=== PATIENT | female | born 1980 | race Caucasian/White ===

== ENCOUNTER 2018-06-17 19:09 | Emergency (ER) | payer OTHER, SELFPAY ==
[2018-06-17] MEDS ORDERED: TETANUS & DIPHTHERIA TOX,ADULT 0.5 ML VIAL ONE (19:44)
[2018-06-17] MEDS ORDERED: LIDOCAINE 1% MPF 5 ML VIAL ONE (19:44)
--- NOTE | 2018-06-17 20:35 | EDPHYS ---
Physician Documentation [facility] Name: Boone Sommer Age: 38 yrs Sex: Female : 1980 Arrival Date: 06/17/2018 Time: 19:10 Bed 5 Private MD: Braxton Cuba ED Physician Shaka Luis HPI: 06/17 20:30 This 38 yrs old Female presents to ER via Ambulatory with complaints of pm1 Laceration to wrist. 20:30 The patient or guardian reports a laceration, clean. The complaints affect the left pm1 wrist diffusely. Context: The problem was sustained at work, resulted from accidentally cutting with box stacker. Onset: The symptoms/episode began/occurred just prior to arrival. Modifying factors: The symptoms are alleviated by pressure to area, the symptoms are aggravated by nothing. Associated signs and symptoms: Pertinent negatives: cyanosis distally, decreased sensation distally, numbness distally, tingling distally. The patient has not experienced similar symptoms in the past. The patient has not recently seen a physician. 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 - Social history:: Smoking status: Patient uses tobacco products, smokes one pack cigarettes per day. Patient uses alcohol, occasionally. - Ebola Screening: : Patient negative for fever greater than or equal to 101.5 degrees Fahrenheit, and additional compatible Ebola Virus Disease symptoms Patient denies exposure to infectious person Patient denies travel to an Ebola-affected area in the 21 days before illness onset No symptoms or risks identified at this time. ROS: 20:30 Constitutional: Negative for fever, chills, and weight loss, Eyes: Negative for injury, pm1 pain, redness, and discharge, ENT: Negative for injury, pain, and discharge, Neck: Negative for injury, pain, and swelling, Cardiovascular: Negative for chest pain, palpitations, and edema, Respiratory: Negative for shortness of breath, cough, wheezing, and pleuritic chest pain, Abdomen/GI: Negative for abdominal pain, nausea, vomiting, diarrhea, and constipation, Back: Negative for injury and pain, MS/Extremity: Negative for injury and deformity. 20:30 Neuro: Negative for headache, weakness, numbness, tingling, and seizure. 20:30 Skin: Positive for laceration(s), of the left wrist. Exam: 06/18 03:24 Skin: injury, laceration(s), the wound is approximately 2 cm(s), with a depth of 1 pm1 cm(s), of the left wrist. Constitutional: This is a well developed, well nourished patient who is awake, alert, and in no acute distress. Head/Face: Normocephalic, atraumatic. Eyes: Pupils equal round and reactive to light, extra-ocular motions intact. Lids and lashes normal. Conjunctiva and sclera are non-icteric and not injected. Cornea within normal limits. Periorbital areas with no swelling, redness, or edema. ENT: Nares patent. No nasal discharge, no septal abnormalities noted. Tympanic membranes are normal and external auditory canals are clear. Oropharynx with no redness, swelling, or masses, exudates, or evidence of obstruction, uvula midline. Mucous membranes moist. Neck: Trachea midline, no thyromegaly or masses palpated, and no cervical lymphadenopathy. Supple, full range of motion without nuchal rigidity, or vertebral point tenderness. No Meningismus. Chest/axilla: Normal chest wall appearance and motion. Nontender with no deformity. No lesions are appreciated. Cardiovascular: Regular rate and rhythm with a normal S1 and S2. No gallops, murmurs, or rubs. Normal PMI, no JVD. No pulse deficits. Respiratory: Lungs have equal breath sounds bilaterally, clear to auscultation and percussion. No rales, rhonchi or wheezes noted. No increased work of breathing, no retractions or nasal flaring. Abdomen/GI: Soft, non-tender, with normal bowel sounds. No distension or tympany. No guarding or rebound. No evidence of tenderness throughout. Back: No spinal tenderness. No costovertebral tenderness. Full range of motion. Musculoskeletal/extremity: Extremities: grossly normal except: noted in the left wrist: laceration, ROM: intact in all extremities. Vital Signs: 06/17 19:34 BP 190 / 119; Pulse 96; Resp 17; Temp 98.8; Pulse Ox 99% ; Weight 72.57 kg (R); bp 20:05 BP 171 / 127; Pulse 85; Resp 18; Pulse Ox 99% on R/A; mt Laceration: 20:32 Wound Repair of 2cm ( 0.8in ) subcutaneous laceration to left wrist. Irregularly pm1 shaped.. Distal neuro/vascular/tendon intact. Anesthesia: Local anesthetic administered with 2 mls of 1% lidocaine. Wound prep: Extensive cleansing with hibiclenz by me, Wound irrigation with saline by me, Wound explored extensively, Copious irrigation. Skin closed with 5 4-0 Prolene using simple sutures and sterile technique. Dressed with Neosporin, 4x4's. Patient tolerated well. MDM: 19:28 Patient medically screened. pm1 20:32 Data reviewed: vital signs. Data interpreted: Pulse oximetry: on room air is 99 %. pm1 Interpretation: normal. Counseling: I had a detailed discussion with the patient and/or guardian regarding: the historical points, exam findings, and any diagnostic results supporting the discharge/admit diagnosis, the need for outpatient follow up, to return to the emergency department if symptoms worsen or persist or if there are any questions or concerns that arise at home. 06/17 19:30 Order name: Prolene, Sutures; Complete Time: 19:44 pm1 06/17 19:30 Order name: Dressing - Wound; Complete Time: 19:44 pm1 06/17 19:30 Order name: Gloves, Sterile; Complete Time: 19:44 pm1 06/17 19:30 Order name: Setup Suture Tray; Complete Time: 19:44 pm1 Administered Medications: 19:43 Drug: Lidocaine (1 %) 5 ml {Note: AT B/S FOR PROVIDER.} Volume: 5 ml; Route: bp Infiltration; 19:43 Drug: Tetanus-Diphtheria Toxoid Adult 0.5 ml {Zipper Joiner: [employer]. Exp: 07/16/2020. Lot #: [id number]. } Route: IM; Site: right deltoid; 19:44 Follow up: Response: No adverse reaction bp Disposition: 06/18 06:49 Co-signature as Attending Physician, Shaka Luis MD I agree with the assessment and keeley plan of care. Disposition: 06/17/18 20:35 Discharged to Home. Impression: Laceration without foreign body of left wrist. - Condition is Stable. - Discharge Instructions: Laceration Care, Adult. - Work release form, Medication Reconciliation Form, Thank You Letter, Antibiotic Education, Prescription Opioid Use form. - Follow up: Emergency Department; When: As needed; Reason: Worsening of condition. Follow up: Private Physician; When: 10 - 14 days; Reason: Recheck today's complaints, Continuance of care, Staple/Suture removal, Re-evaluation by your physician. - Problem is new. - Symptoms have improved. Signatures: Shaka Luis MD MD cha Marinas, Patrick, WAREHOUSE SHIFT SUPERVISOR WAREHOUSE SHIFT SUPERVISOR pm1 Braxton Bishop, RN RN bp Corrections: (The following items were deleted from the chart) 06/17 20:47 20:35 06/17/2018 20:35 Discharged to Home. Impression: Laceration without foreign body bp of left wrist. Condition is Stable. Forms are Medication Reconciliation Form, Thank You Letter, Antibiotic Education, Prescription Opioid Use. Follow up: Emergency Department; When: As needed; Reason: Worsening of condition. Follow up: Private Physician; When: 10 - 14 days; Reason: Recheck today's complaints, Continuance of care, Staple/Suture removal, Re-evaluation by your physician. Problem is new. Symptoms have improved. pm1
--- NOTE | 2018-06-17 20:35 | ER ---
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 bp Transition of care: patient was not received from another setting of care. Onset of symptoms was June 17, 2018 at 19:00. Risk Assessment: Do you want to hurt yourself or someone else? Patient reports no desire to harm self or others. Initial Sepsis Screen: Does the patient meet any 2 criteria? No. Patient's initial sepsis screen is negative. Does the patient have a suspected source of infection? No. Patient's initial sepsis screen is negative. Care prior to arrival: None. 19:30 Method Of Arrival: Ambulatory bp 19:30 Acuity: [place] 3 bp Triage Assessment: 19:34 General: Appears in no apparent distress. comfortable, Behavior is calm, cooperative, bp appropriate for age. Pain: Denies pain. 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 - Social history:: Smoking status: Patient uses tobacco products, smokes one pack cigarettes per day. Patient uses alcohol, occasionally. - Ebola Screening: : Patient negative for fever greater than or equal to 101.5 degrees Fahrenheit, and additional compatible Ebola Virus Disease symptoms Patient denies exposure to infectious person Patient denies travel to an Ebola-affected area in the 21 days before illness onset No symptoms or risks identified at this time. Screenin:36 Abuse screen: Denies threats or abuse. Denies injuries from another. Nutritional bp screening: No deficits noted. Tuberculosis screening: No symptoms or risk factors identified. Fall Risk None identified. Assessment: 19:35 General: 38YO HF P/W 1.5CM LAC TO MEDIAL LEFT WRIST. NO ACTIVE BLEEDING, FULL ROM NOTED.bp 20:45 Reassessment: PT D/C HOME AMBULATORY WITH S/O, DX WITH HAND LACERATION, GIVEN bp INSTRUCTIONS ON WOUND CARE AND F/U. Vital Signs: 19:34 BP 190 / 119; Pulse 96; Resp 17; Temp 98.8; Pulse Ox 99% ; Weight 72.57 kg (R); bp 20:05 BP 171 / 127; Pulse 85; Resp 18; Pulse Ox 99% on R/A; mt ED Course: 19:10 Patient arrived in ED. es 19:13 Braxton Cuba MD is Private Physician. es 19:28 Braxton Bishop, RN is Primary Nurse. bp 19:28 Eh Rivera [facility]. pm1 19:28 Shaka Luis MD is Attending Physician. pm1 19:31 Triage completed. bp 19:35 Arm band placed on. bp 19:36 Patient has correct armband on for positive identification. Bed in low position. Call bp light in reach. Side rails up X2. Adult w/ patient. 20:00 Assist provider with laceration repair on left hand that was 2.5 cm. or less using bp sutures. Set up tray. Performed by Eh Rivera NP Dressed with Neosporin, Patient tolerated well. 20:47 Patient did not have IV access during this emergency room visit. bp Administered Medications: 19:43 Drug: Lidocaine (1 %) 5 ml {Note: AT B/S FOR PROVIDER.} Volume: 5 ml; Route: bp Infiltration; 19:43 Drug: Tetanus-Diphtheria Toxoid Adult 0.5 ml {Processing Tech: [employer]. Exp: bp 07/16/2020. Lot #: [id number]. } Route: IM; Site: right deltoid; 19:44 Follow up: Response: No adverse reaction bp Outcome: 20:35 Discharge ordered by . pm1 20:47 Discharged to home ambulatory, with significant other. bp 20:47 Condition: stable 20:47 Discharge instructions given to patient, Instructed on discharge instructions, follow up and referral plans. wound care, Demonstrated understanding of instructions, follow-up care, wound care. 20:47 Patient left the ED. bp Signatures: Karina Mallory Patrick, NP MEDICAL RECORD CODER pm1 Melanie Schaefer mt, Brian, RN RN bp
== END 2018-06-17 20:47 | disposition home or self-care (01) ==
LOC: ER 19:09
PROC: 0JQK0ZZ Repair Left Hand Subcutaneous Tissue and Fascia, Open Approach (ICD-10-PCS; principal; 2018-06-17)
DX: S61.512A Laceration without foreign body of left wrist, initial encounter (principal); I10 Essential (primary) hypertension; F17.210 Nicotine dependence, cigarettes, uncomplicated; W26.0XXA Contact with knife, initial encounter; Y93.89 Activity, other specified; Y92.89 Other specified places as the place of occurrence of the external cause; Y99.8 Other external cause status; Z23 Encounter for immunization
CPT/HCPCS: 90714; 99283

== ENCOUNTER 2018-09-03 11:21 | Observation (INO) | payer SELFPAY ==
[2018-09-03 11:55] LABS: Absolute Lymphocytes (CBC) 3.1 K/uL (0.7-4.9); Absolute Monocytes 0.6 K/uL (0.1-1.3); Absolute Neutrophil 7.9 K/uL (1.8-8.0); Basophils % 1.4 % (0-1.3); Eosinophils % 1.1 % (0-4.4); Hematocrit 38.5 % (36.0-45.0); Lymphocytes % 26.1 % (15.3-44.8); MCH 29.9 pg (27.0-35.0); MCV 86.9 fL (80-100); MPV 9.3 fL (7.6-11.3); Monocytes % 4.9 % (3.3-12.3); RBC Red Blood Cell Count 4.43 M/uL (3.86-4.86)
[2018-09-03 12:00] LABS: Protime INR 0.92
[2018-09-03 12:14] LABS: BUN Blood Urea Nitrogen 25 mg/dL (7-18); Bicarbonate 24 mmol/L (21-32); Glucose Level 95 mg/dL (74-106); Magnesium 1.6 mg/dL (1.8-2.4); NT PRO-BNP 3067 pg/mL (<125); Potassium 4.2 mmol/L (3.5-5.1); Sodium Level 138 mmol/L (136-145); Troponin (Emerg Dept Use Only) < 0.02 ng/mL (0.0-0.045)
--- NOTE | 2018-09-03 13:30 | EKG ---
Test Date: 2018-09-03 Test Time: 11:49:14 Roll Mill Operator: EUGENIA MEASUREMENT RESULTS: Intervals: Rate: 92 NM: 186 QRSD: 96 QT: 400 QTc: 494 [place]: P: 75 NM: 186 QRS: 7 T: 68 INTERPRETIVE STATEMENTS: Normal sinus rhythm Prolonged QT Abnormal ECG Electronically Signed On 09-03-18 13:29:20 SURVEILLANCE SENSOR OFFICER by Ramana Voss
--- NOTE | 2018-09-03 13:33 | RAD REPORT ---
EXAM DESCRIPTION: RAD - Chest Pa And Lat (2 Views) - 09/03/2018 1:10 pm CLINICAL HISTORY: Chest pain, hypertension COMPARISON: August 2016 TECHNIQUE: PA and lateral views of the chest were obtained. FINDINGS: The lungs are clear. Heart size is normal and central vasculature is within normal limit s. No pleural effusion or pneumothorax seen. No acute bony finding noted. No aortic abnormality. IMPRESSION: No acute cardiopulmonary process. No significant interval change.
[2018-09-03] MEDS ORDERED: MAGNESIUM SULFATE 1 gm IVPB 1 GM/100 ML BAG IV ONE (13:52)
--- NOTE | 2018-09-03 13:52 | EDPHYS ---
Physician Documentation [facility] Name: Boone Sommer Age: 38 yrs Sex: Female : 1980 Arrival Date: 09/03/2018 Time: 11:22 Bed 19 Private MD: Braxton Cuba ED Physician Laurent Nascimento HPI: 09/03 13:49 This 38 yrs old Female presents to ER via Ambulatory with complaints of Chest kb Pain, Back Pain. 13:49 The patient or guardian reports chest pain that is located primarily in the substernal kb area. The pain radiates to back. Associated signs and symptoms: Pertinent positives: shortness of breath, Pertinent negatives: abdominal pain, cough, diaphoresis, dizziness, headache, lower extremity pain, lower extremity swelling, lightheadedness, nausea, near syncope, palpitations, recent travel, syncope, vomiting. The chest pain is described as dull, sharp. Duration: The patient or guardian reports a single episode. Modifying factors: The symptoms are alleviated by nothing. the symptoms are aggravated by nothing. Severity of pain: At its worst the pain was moderate in the emergency department the pain is unchanged. The patient has not experienced similar symptoms in the past. The patient has not recently seen a physician. Pt reports constant chest discomfort with intermittent sharp pain since Saturday. Pain radiates to back. Shortness of breath when walking. . 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 - Social history:: Smoking status: Patient uses tobacco products, smokes one pack cigarettes per day. - Ebola Screening: : Patient denies travel to an Ebola-affected area in the 21 days before illness onset. ROS: 13:47 Constitutional: Negative for fever, chills, and weight loss, ENT: Negative for injury, kb pain, and discharge, Neck: Negative for injury, pain, and swelling, Abdomen/GI: Negative for abdominal pain, nausea, vomiting, diarrhea, and constipation, MS/Extremity: Negative for injury and deformity, Skin: Negative for injury, rash, and discoloration, Neuro: Negative for headache, weakness, numbness, tingling, and seizure. 13:47 Cardiovascular: Positive for chest pain, Negative for edema, orthopnea, palpitations, paroxysmal nocturnal dyspnea. 13:47 Respiratory: Positive for shortness of breath, Negative for cough, dyspnea on exertion, hemoptysis, orthopnea, pleurisy, sputum production, wheezing. Exam: 13:48 Constitutional: This is a well developed, well nourished patient who is awake, alert, kb and in no acute distress. Head/Face: Normocephalic, atraumatic. Chest/axilla: Normal chest wall appearance and motion. Nontender with no deformity. No lesions are appreciated. Cardiovascular: Regular rate and rhythm with a normal S1 and S2. No gallops, murmurs, or rubs. Normal PMI, no JVD. No pulse deficits. Respiratory: Lungs have equal breath sounds bilaterally, clear to auscultation and percussion. No rales, rhonchi or wheezes noted. No increased work of breathing, no retractions or nasal flaring. Abdomen/GI: Soft, non-tender, with normal bowel sounds. No distension or tympany. No guarding or rebound. No evidence of tenderness throughout. Skin: Warm, dry with normal turgor. Normal color with no rashes, no lesions, and no evidence of cellulitis. MS/ Extremity: Pulses equal, no cyanosis. Neurovascular intact. Full, normal range of motion. Neuro: Awake and alert, GCS 15, oriented to person, place, time, and situation. Cranial nerves II-XII grossly intact. Motor strength 5/5 in all extremities. Sensory grossly intact. Cerebellar exam normal. Normal gait. Vital Signs: 11:26 BP 154 / 115; Pulse 105; Resp 20; Temp 97.0; Pulse Ox 98% on R/A; Weight 97.52 kg (R); aj1 Height 5 ft. 3 in. (160.02 cm) (R); Pain 5/10; 11:48 BP 153 / 126; Pulse 88 MON; Resp 20; Pulse Ox 95% on R/A; sv 12:39 BP 160 / 105 LA (man/reg); sv 12:41 BP 174 / 117 RA (auto/lg); sv 13:33 BP 160 / 106 LA Sitting (auto/lg); Pulse 80 MON; Resp 16; Pulse Ox 99% on R/A; sv 14:20 BP 168 / 114; Pulse 82 MON; Resp 16; Pulse Ox 99% on R/A; sv 11:26 Body Mass Index 38.09 (97.52 kg, 160.02 cm) aj1 11:48 Sinus Rhythm sv 13:33 Sinus Rhythm sv 14:20 Sinus Rhythm sv MDM: 11:31 Patient medically screened. kb 13:46 Data reviewed: vital signs, nurses notes. Data interpreted: Pulse oximetry: on room air kb is 99 %. Interpretation: normal. Counseling: I had a detailed discussion with the patient and/or guardian regarding: the historical points, exam findings, and any diagnostic results supporting the discharge/admit diagnosis, lab results, radiology results, the need for further work-up and treatment in the hospital. 13:46 Physician consultation: Jenni Betancourt MD was contacted at 13:46, regarding admission, to kb the telemetry unit. patient's condition, and will see patient in ED, shortly. 09/03 11:38 Order name: Magnesium kb 09/03 11:38 Order name: Basic Metabolic Panel kb 09/03 11:38 Order name: CBC with Diff; Complete Time: 11:58 kb 09/03 11:38 Order name: NT PRO-BNP; Complete Time: 12:29 kb 09/03 11:38 Order name: PT-INR; Complete Time: 12:29 kb 09/03 11:38 Order name: Troponin (emerg Dept Use Only); Complete Time: 12:29 kb 09/03 11:38 Order name: EKG; Complete Time: 11:39 kb 09/03 11:38 Order name: D-Dimer; Complete Time: 12:29 kb 09/03 11:38 Order name: Chest Pa And Lat (2 Views) XRAY; Complete Time: 13:34 kb 09/03 11:39 Order name: Magnesium; Complete Time: 12:29 EDMS 09/03 11:39 Order name: Basic Metabolic Panel; Complete Time: 12:29 EDMS 09/03 11:38 Order name: Cardiac monitoring; Complete Time: 11:48 kb 09/03 11:38 Order name: EKG - Nurse/Tech; Complete Time: 11:48 kb 09/03 11:38 Order name: IV Saline Lock; Complete Time: 11:48 kb 09/03 11:38 Order name: Labs collected and sent; Complete Time: 11:47 kb 09/03 11:38 Order name: O2 Per Protocol; Complete Time: 11:47 kb 09/03 11:38 Order name: O2 Sat Monitoring; Complete Time: 11:47 kb 09/03 13:48 Order name: Diet Heart Healthy; Complete Time: 13:48 kb Administered Medications: 13:51 Drug: Magnesium Sulfate 1 grams Route: IVPB; Infused Over: 1 hrs; Site: right sv antecubital; 14:55 Follow up: Response: No adverse reaction; IV Status: Completed infusion; IV Intake: sv 100ml 13:51 Drug: Nitro-Bid Ointment 2 % 1 inches Route: Transdermal; Site: anterior chest wall; sv Disposition: 16:53 Co-signature as Attending Physician, Laurent Nascimento MD. rn Disposition: 09/03/18 13:51 Hospitalization ordered by Jenni Betancourt for Observation. Preliminary diagnosis are Chest pain, unspecified, Essential (primary) hypertension. - Bed requested for Telemetry/MedSurg (observation). - Status is Observation. sv - Condition is Stable. - Problem is new. - Symptoms are unchanged. UTI on Admission? No Signatures: Dispatcher [employer] [facility] [place] Qi Woods, SCREW MACHINE OPERATOR SWISS TYPE-C SCREW MACHINE OPERATOR SWISS TYPE-Ckb Re Blackwell RN RN ajShivani Mancilla RN Sarah Chew RN RN dw Nieto, Roman, MD MD patternmaker plaster: (The following items were deleted from the chart) 12:24 12:22 EKG Electrocardiogram ordered. [facility] 14:06 13:51 Hospitalization Ordered by Jenni Betancourt MD for Observation. Preliminary diagnosis dw is Chest pain, unspecified; Essential (primary) hypertension. Bed requested for Telemetry/MedSurg (observation). Status is Observation. Condition is Stable. Problem is new. Symptoms are unchanged. UTI on Admission? No. kb 14:55 14:06 09/03/2018 13:51 Hospitalization Ordered by Jenni Betancourt MD for Observation. sv Preliminary diagnosis is Chest pain, unspecified; Essential (primary) hypertension. Bed requested for Telemetry/MedSurg (observation). Status is Observation. Condition is Stable. Problem is new. Symptoms are unchanged. UTI on Admission? No. dw
--- NOTE | 2018-09-03 13:52 | ER ---
Nurse's Notes [facility] Name: Boone Sommer Age: 38 yrs Sex: Female : 1980 Arrival Date: 09/03/2018 Time: 11:22 Bed 19 Private MD: Braxton Cuba Diagnosis: Chest pain, unspecified;Essential (primary) hypertension Presentation: 09/03 11:24 Presenting complaint: Patient states: "I've been having chest pains in the center of my aj1 chest and my back." Reports intermittent chest pain for the past 3 days. States that she has tried taking antacids with no relief. Reports SOB on exertion, palpitations. Denes dizziness. Transition of care: patient was not received from another setting of care. Onset of symptoms was August 31, 2018. Risk Assessment: Do you want to hurt yourself or someone else? Patient reports no desire to harm self or others. Initial Sepsis Screen: Does the patient meet any 2 criteria? HR > 90 bpm. No. Patient's initial sepsis screen is negative. Does the patient have a suspected source of infection? No. Patient's initial sepsis screen is negative. Care prior to arrival: None. 11:24 Method Of Arrival: Ambulatory aj1 11:24 Acuity: [place] 3 aj1 Triage Assessment: 11:26 General: Appears in no apparent distress. uncomfortable, Behavior is calm, cooperative, aj1 appropriate for age. Pain: Complains of pain in mid-sternal area Pain radiates to back Pain currently is 5 out of 10 on a pain scale. Is intermittent. Neuro: Level of Consciousness is awake, alert, obeys commands. Cardiovascular: Reports chest pain, palpitations, shortness of breath, Patient's skin is warm and dry. Respiratory: Airway is patent Respiratory effort is even, unlabored, Respiratory pattern is regular, symmetrical. 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 - Social history:: Smoking status: Patient uses tobacco products, smokes one pack cigarettes per day. - Ebola Screening: : Patient denies travel to an Ebola-affected area in the 21 days before illness onset. Screenin:35 Abuse screen: Denies threats or abuse. Denies injuries from another. Nutritional sv screening: No deficits noted. Tuberculosis screening: No symptoms or risk factors identified. Fall Risk None identified. Assessment: 11:35 Also complains of shortness of breath. General: Appears in no apparent distress. sv uncomfortable, well developed, Behavior is calm, cooperative, appropriate for age. Pain: Complains of pain in mid-sternal area Pain radiates to back Pain currently is 5 out of 10 on a pain scale. Pain began suddenly, Is intermittent. Neuro: Level of Consciousness is awake, alert, obeys commands, Oriented to person, place, time, situation, Moves all extremities. Full function Gait is steady, Speech is normal. Cardiovascular: Patient's skin is warm and dry. Pulses are 3+ in right radial artery and left radial artery Rhythm is sinus rhythm. Respiratory: Reports shortness of breath Airway is patent Respiratory effort is even, unlabored, Respiratory pattern is regular, symmetrical. Derm: Skin is pink, warm \\T\\ dry. 12:25 Reassessment: Patient appears in no apparent distress at this time. No changes from sv previously documented assessment. Patient and/or family updated on plan of care and expected duration. Pain level reassessed. Patient is alert, oriented x 3, equal unlabored respirations, skin warm/dry/pink. 13:51 Reassessment: Patient appears in no apparent distress at this time. No changes from sv previously documented assessment. Patient and/or family updated on plan of care and expected duration. Pain level reassessed. Patient is alert, oriented x 3, equal unlabored respirations, skin warm/dry/pink. 14:14 Reassessment: Nurse to call back for report. sv 14:30 Reassessment: Nurse to call back for report, charge nurse unavailable for report. sv Vital Signs: 11:26 BP 154 / 115; Pulse 105; Resp 20; Temp 97.0; Pulse Ox 98% on R/A; Weight 97.52 kg (R); aj1 Height 5 ft. 3 in. (160.02 cm) (R); Pain 5/10; 11:48 BP 153 / 126; Pulse 88 MON; Resp 20; Pulse Ox 95% on R/A; sv 12:39 BP 160 / 105 LA (man/reg); sv 12:41 BP 174 / 117 RA (auto/lg); sv 13:33 BP 160 / 106 LA Sitting (auto/lg); Pulse 80 MON; Resp 16; Pulse Ox 99% on R/A; sv 14:20 BP 168 / 114; Pulse 82 MON; Resp 16; Pulse Ox 99% on R/A; sv 11:26 Body Mass Index 38.09 (97.52 kg, 160.02 cm) aj1 11:48 Sinus Rhythm sv 13:33 Sinus Rhythm sv 14:20 Sinus Rhythm sv ED Course: 11:22 Patient arrived in ED. sb2 11:23 Braxton Cuba MD is Private Physician. sb2 11:26 Triage completed. aj1 11:26 Arm band placed on Patient placed in an exam room. aj1 11:31 Qi Woods [facility]-C [facility]. kb 11:31 Laurent Nascimento MD is Attending Physician. kb 11:34 Shivani Reyes RN is Primary Nurse. sv 11:35 Patient has correct armband on for positive identification. Placed in gown. Bed in low sv position. Call light in reach. nurse monitoring on. Pulse ox on. NIBP on. Door closed. Head of bed elevated. 11:35 Patient maintains SpO2 saturation greater than 95% on room air. sv 11:40 Initial lab(s) drawn, by nd, sent to lab. Inserted saline lock: 20 gauge in right sv antecubital area, using aseptic technique. Blood collected. Flushed right antecubital with 5 ml normal saline. 11:47 Magnesium Sent. sv 11:48 Basic Metabolic Panel Sent. sv 11:51 EKG done, by avionic technician. reviewed by Qi MORALES. at1 13:11 Chest Pa And Lat (2 Views) XRAY In Process Unspecified. EDMS 13:11 X-ray completed. Patient tolerated procedure well. Patient moved back from radiology. jb2 13:51 Jenni Betancourt MD is Hospitalizing Provider. kb 13:59 Awaiting bed assignment. sv 14:09 No provider procedures requiring assistance completed. Patient admitted, IV remains in sv place. intact. Administered Medications: 13:51 Drug: Magnesium Sulfate 1 grams Route: IVPB; Infused Over: 1 hrs; Site: right sv antecubital; 14:55 Follow up: Response: No adverse reaction; IV Status: Completed infusion; IV Intake: sv 100ml 13:51 Drug: Nitro-Bid Ointment 2 % 1 inches Route: Transdermal; Site: anterior chest wall; sv Intake: 14:55 IV: 100ml; Total: 100ml. sv Outcome: 13:51 Decision to Hospitalize by Provider. kb 14:44 Admitted to Tele accompanied by tech, via wheelchair, room 428, with chart, Report sv called to Allen DODD 14:44 Condition: stable 14:44 Instructed on the need for admit. 14:55 Patient left the ED. sv Signatures: Dispatcher [employer] EDMS Qi Woods, BATH MIX OPERATOR-C BATH MIX OPERATOR-Ckb Re Blackwell, RN RN Shivani Mckeon RN RN Dilan Jarrell Amanda, executive meeting manager EKG Tat1 Karlene Wilson2
[2018-09-03] MEDS ORDERED: NITROGLYCERIN 1 GM PKT TD ONE (13:56)
[2018-09-03] MEDS ORDERED: ONDANSETRON 4 MG/2 ML VIAL IV PRN (15:03)
[2018-09-03] MEDS ORDERED: ALBUTEROL 2.5 MG/3 ML NEB SOL NEB PRN (15:03)
[2018-09-03] MEDS: ENOXAPARIN 40 MG/0.4 ML SQ SCH (16:28)
[2018-09-03] MEDS ORDERED: INFLUENZA VACCINE (for 3y+) 0.5 ML DOSE IMVAC ONE (17:00)
[2018-09-03] MEDS ORDERED: MORPHINE 2 MG/ML SYR IV PRN (17:26)
[2018-09-03] MEDS ORDERED: NITROGLYCERIN 0.4 MG/TAB SL PRN (17:26)
--- NOTE | 2018-09-03 17:38 | P.HP ---
Certification for Inpatient Patient admitted to: Observation With expected LOS: <2 Midnights Practitioner: I am a practitioner with admitting privileges, knowledge of patient current condition, hospital course, and medical plan of care. Services: Services provided to patient in accordance with Admission requirements found in Title 42 Section 412.3 of the Code of Federal Regulations Patient History Date of Service: 09/03/18 Reason for admission: Chest pain History of Present Illness: This is a 38-year-old female with history of hypertension and depression who comes in with complaints of chest pain. Patient states his pain started a couple days ago, it is located in the center, radiating to the back. Describes it as constant and kind of sharp with no alleviating or exacerbating factors. Denies any shortness of breath, dizziness, vision changes, headaches, palpitations associated with this chest pain. Of note, she does see Dr. pike, cardiology as an outpatient. Per patient, She has been told that her blood pressure stays elevated because she has a smaller kidney which chronically elevated blood pressure. At the time of my exam, patient was alert and oriented x3. Her pain was still present though had slightly decreased because of pain medications. Her blood pressure was still elevated at 185-190/115-120. She did receive some nitropaste in the ER. Allergies No Known Allergies Allergy (Unverified 01/27/17 04:25) - Past Medical/Surgical History Has patient received pneumonia vaccine in the past: No Diabetic: No -: hypertensive -: hysterectemoy -: cyst removal on vaginal area - Social History Smoking Status: Current every day smoker Alcohol use: Yes CD- Drugs: No Caffeine use: Yes Place of Residence: Home Review of Systems General: Unremarkable Eyes: Unremarkable ENT: Unremarkable Respiratory: As per HPI Cardiovascular: Chest Pain, As per HPI Gastrointestinal: Unremarkable Genitourinary: Unremarkable Musculoskeletal: Unremarkable Integumentary: Unremarkable Neurological: Unremarkable Lymphatics: Unremarkable Physical Examination - Vital Signs Temperature: 97.5 F Blood Pressure: 191/115 Pulse: 84 Respirations: 18 Pulse Ox (%): 98 - Physical Exam General: Alert, In no apparent distress HEENT: Atraumatic, PERRLA, Mucous membr. moist/pink, EOMI, Sclerae nonicteric Neck: Supple, 2+ carotid pulse no bruit, No LAD, Without JVD or thyroid abnormality Respiratory: Clear to auscultation bilaterally, Normal air movement Cardiovascular: Normal S1 S2, Irregular heart rate/rhythm Gastrointestinal: Normal bowel sounds, No tenderness Musculoskeletal: No tenderness Integumentary: No rashes Neurological: Normal speech, Normal strength at 5/5 x4 extr, Normal tone, Normal affect - Studies Laboratory Data (last 24 hrs) 09/03/18 11:40: PT 10.9, INR 0.92 09/03/18 11:40: WBC 11.9 H, Hgb 13.2, Hct 38.5, Plt Count 298 09/03/18 11:40: Sodium 138, Potassium 4.2, BUN 25 H, Creatinine 1.20, Glucose 95 , Magnesium 1.6 L Assessment and Plan - Plan This is a 38-year-old female with: Chest pain Risk factors: High blood pressure, obesity Troponin negative x1, EKG normal sinus rhythm, prolonged QT. Chest x-ray normal. BNP elevated at 3,067. S. patient was describing chest pain radiating to back with elevated blood pressure, CT angio ordered, pending. Echo ordered, pending Pain control with IV morphine. Nitro p.r.n. Oxygen as needed Hypertensive urgency. Blood pressure elevated even after patient states she has taken all her blood pressure medications this morning. Will go ahead and restart home medications once patient is able to tell us her home dosage. In the meanwhile, will start amlodipine 10 mg and valsartan 80 mg. Patient states she does take telmisartan , amlodipine and metoprolol at home but she is unsure of the doses. Add hydralazine p.r.n. Hypomagnesemia Replace per protocol, monitor via a.m. labs Depression Stable at this time. Will restart home medication when she is able to tell us medication and dosage. DVT prophylaxis: Lovenox GI prophylaxis: Not needed Diet: Heart healthy. Disposition: Admit to floor with tele. Pending echo, CTA. Pending symptomatic improvement. Discharge Plan: Home Plan to discharge in: 24 Hours - Advance Directives Does patient have a Living Will: No Does patient have a Durable POA for Healthcare: No Physician Review: Patient Assessed, Agree with Above Assessment and Plan Time Spent Managing Pts Care (In Minutes): 45
--- NOTE | 2018-09-03 17:40 | RAD REPORT ---
EXAM DESCRIPTION: CT - Chest Angio - 09/03/2018 5:25 pm CLINICAL HISTORY: Chest pain COMPARISON: None. TECHNIQUE: Dynamically enhanced axial 3 mm thick images of the chest were obtained during administra tion of <100> mL Isovue 370 IV contrast. Coronal and oblique reconstruction images were generated and reviewed. Exam utilizes a protocol for optimal evaluation of pulmonary arterial tree. Maximum intensity projections 3D imaging was utilized All CT scans are performed using dose optimization technique as appropriate and may include automated exposure control or mA/KV adjustment according to patient size. FINDINGS: A pulmonary embolus is not seen. A thoracic aortic aneurysm is not noted. A pleural effusion is not seen. A pericardial effusion is not seen. A lung consolidation is not present. IMPRESSION: Negative for a pulmonary embolism.
[2018-09-03] MEDS: HYDRALAZINE HCL 20 MG/ML VIAL IV PRN ×2 (17:54→23:37)
[2018-09-03] MEDS: ACETAMINOPHEN 500 MG TAB PO PRN (20:08)
[2018-09-03] MEDS ORDERED: TEMAZEPAM 15 MG CAP PO PRN (21:51)
[2018-09-03] MEDS: HYDROCODONE/APAP 10/325 TAB PO PRN (23:40)
[2018-09-04] MEDS: HYDROCODONE/APAP 10/325 TAB PO PRN (04:33)
[2018-09-04 05:13] LABS: Absolute Lymphocytes (CBC) 2.5 K/uL (0.7-4.9); Absolute Monocytes 0.5 K/uL (0.1-1.3); Absolute Neutrophil 7.6 K/uL (1.8-8.0); Basophils % 0.4 % (0-1.3); Hematocrit 40.3 % (36.0-45.0); Lymphocytes % 23.3 % (15.3-44.8); MCH 30.3 pg (27.0-35.0); MCV 87.4 fL (80-100); MPV 9.8 fL (7.6-11.3); Monocytes % 4.2 % (3.3-12.3); RBC Red Blood Cell Count 4.61 M/uL (3.86-4.86)
[2018-09-04 05:38] LABS: Albumin 3.8 g/dL (3.4-5.0); Bilirubin Total 0.3 mg/dL (0.2-1.0); Potassium 4.6 mmol/L (3.5-5.1); Protein, Total 6.8 g/dL (6.4-8.2)
[2018-09-04] MEDS: ACETAMINOPHEN 500 MG TAB PO PRN ×3 (07:56→22:36)
[2018-09-04] MEDS: AMLODIPINE 10 MG TAB PO SCH (08:00)
[2018-09-04] MEDS: ENOXAPARIN 40 MG/0.4 ML SQ SCH (08:01)
[2018-09-04] MEDS ORDERED: VALSARTAN 80 MG TAB PO SCH (09:00)
[2018-09-04] MEDS: ESCITALOPRAM 20 MG TAB PO SCH (10:58)
[2018-09-04] MEDS: METOPROLOL XL 100 MG TAB PO SCH (10:59)
--- NOTE | 2018-09-04 11:45 | ECHO ---
HEIGHT: 5 ft 3 in WEIGHT: 215 lb 0 oz DATE OF STUDY: 09/04/[address]: Jenni Betancourt MD 2-DIMENSIONAL: YES M.MODE: YES DOPPLER: YES COLOR FLOW: YES TDS: NO PORTABLE: NO DEFINITY: NO BUBBLE STUDY: NO DIAGNOSIS: CHEST PAIN CARDIAC HISTORY: CATHERIZATION: NO SURGERY: NO PROSTHETIC VALVE: NO PACEMAKER: NO MEASUREMENTS (cm) DIASTOLIC (NORMALS) SYSTOLIC (NORMALS) IVSd 1.0 (0.6-1.2) LA Diam 3.7 (1.9-4.0) LVEF 51% LVIDd 5.3 (3.5-5.7) LVIDs 3.9 (2.0-3.5) %FS 26% LVPWd 1.3 (0.6-1.2) Ao Diam 2.7 (2.0-3.7) 2 DIMENSIONAL ASSESSMENT: RIGHT ATRIUM: NORMAL LEFT ATRIUM: NORMAL RIGHT VENTRICLE: NORMAL LEFT VENTRICLE: NORMAL TRICUSPID VALVE: NORMAL MITRAL VALVE: NORMAL PULMONIC VALVE: NORMAL AORTIC VALVE: NORMAL PERICARDIAL EFFUSION: NONE AORTIC ROOT: NORMAL LEFT VENTRICULAR WALL MOTION: NORMAL. DOPPLER/COLOR FLOW: MILD TRICUSPID REGURGITATION. COMMENTS: MILD TRICUSPID REGURGITATION. NORMAL LEFT VENTRICULAR SIZE AND FUNCTION. NO WALL MOTION ABNORMALITY. NO EFFUSION. TECHNOLOGIST: KEVIN DYKES
--- NOTE | 2018-09-04 18:53 | P.PN ---
Subjective Date of Service: 09/04/18 Chief Complaint: Chest pain Patient seen and examined at bedside. At bedside. Case discussed with nursing staff. Patient with no current complaints this morning. States chest pain has resolved , denies any shortness of breath, nausea, abdominal pain or headache at this time. States she did have a headache overnight, which is now resolved. Review of Systems As noted above Physical Examination - Vital Signs Temperature: 98.0 F Blood Pressure: 128/73 Pulse: 77 Respirations: 18 Pulse Ox (%): 96 - Physical Exam General: Alert, In no apparent distress HEENT: Atraumatic, PERRLA, EOMI Neck: Supple, JVD not distended Respiratory: Clear to auscultation bilaterally, Normal air movement Cardiovascular: Regular rate/rhythm, Normal S1 S2 Gastrointestinal: Normal bowel sounds, No tenderness Musculoskeletal: No tenderness Integumentary: No rashes Neurological: Normal speech, Normal tone, Normal affect Lymphatics: No axilla or inguinal lymphadenopathy Assessment And Plan - Plan This is a 38-year-old female with: Chest pain Risk factors: High blood pressure, obesity Troponin negative x3, EKG normal sinus rhythm, prolonged QT. Chest x-ray normal. BNP elevated at 3,067. S. patient was describing chest pain radiating to back with elevated blood pressure, CT angio ordered, negative for PE or aneurysm/tear. Echo ordered, normal Pain control with IV morphine. Nitro p.r.n. Oxygen as needed Hypertensive urgency. Blood pressure elevated even after patient states she has taken all her blood pressure medications this morning. Restarted home medications. Received 1 dose of IV hydralazine, p.r.n. as blood pressure was elevated. Will go ahead and restart home medications once patient is able to tell us her home dosage. Add hydralazine p.r.n. Hypomagnesemia: Resolved Replace per protocol, monitor via a.m. labs Depression Stable at this time. restart home medication DVT prophylaxis: Lovenox GI prophylaxis: Not needed Diet: Heart healthy. Disposition: Admit to floor with tele.. Pending symptomatic improvement. Likely discharge tomorrow with outpatient cardiology follow Discharge Plan: Home Plan to discharge in: 24 Hours Physician Review: Patient Assessed, Agree with Above Assessment and Plan Time Spent Managing PTS Care (In Minutes): 45
[2018-09-05 04:55] LABS: Absolute Lymphocytes (CBC) 3.1 K/uL (0.7-4.9); Absolute Monocytes 0.6 K/uL (0.1-1.3); Absolute Neutrophil 4.6 K/uL (1.8-8.0); Basophils % 0.9 % (0-1.3); Eosinophils % 1.5 % (0-4.4); Hematocrit 41.2 % (36.0-45.0); Lymphocytes % 36.1 % (15.3-44.8); MCH 30.2 pg (27.0-35.0); MCV 87.4 fL (80-100); MPV 9.2 fL (7.6-11.3); RBC Red Blood Cell Count 4.72 M/uL (3.86-4.86)
[2018-09-05 05:05] LABS: Albumin 3.7 g/dL (3.4-5.0); Bilirubin Total 0.3 mg/dL (0.2-1.0); Potassium 4.6 mmol/L (3.5-5.1); Protein, Total 6.6 g/dL (6.4-8.2)
[2018-09-05] MEDS: ENOXAPARIN 40 MG/0.4 ML SQ SCH (08:19)
[2018-09-05] MEDS: METOPROLOL XL 100 MG TAB PO SCH (08:21)
[2018-09-05] MEDS: ESCITALOPRAM 20 MG TAB PO SCH (08:21)
[2018-09-05] MEDS: AMLODIPINE 10 MG TAB PO SCH (08:22)
[2018-09-05] MEDS ORDERED: hydroCHLOROthiazide 25 MG TAB PO SCH (09:00)
[2018-09-05] MEDS ORDERED: VALSARTAN 80 MG TAB PO SCH (09:00)
[2018-09-05] MEDS ORDERED: NICOTINE 21 MG/PAT TD SCH (09:00)
[2018-09-05] MEDS ORDERED: [UNRECOGNIZED DRUG - OTHER] PO SCH (09:00)
== END 2018-09-05 14:18 | disposition home or self-care (01) ==
LOC: ER 11:21 → ERHOLD 13:44 → 4TH 14:45
PROVIDERS: ADMIT Family Medicine; ATTEND Family Medicine
DX: R07.9 Chest pain, unspecified (principal); I16.0 Hypertensive urgency; E83.42 Hypomagnesemia; F32.9 Major depressive disorder, single episode, unspecified; I10 Essential (primary) hypertension; F17.210 Nicotine dependence, cigarettes, uncomplicated
CPT/HCPCS: 36415; 71046; 71275; 80048; 80053; 83735; 83880; 84484; 85025; 85379; 85610; 93005; 93306; 94760; 96365; 99285; G0378; J0360; J1650; J2405; J3475; Q9967

== ENCOUNTER 2018-12-21 16:34 | Emergency (ER) | payer OTHER, SELFPAY ==
[2018-12-21] MEDS ORDERED: NA CHLORIDE 0.9% 1,000 ML ONE (18:40)
[2018-12-21] MEDS ORDERED: FENTANYL CITR 100 MCG/2 ML ONE ×2 (18:40→19:27)
[2018-12-21 18:41] LABS: Absolute Monocytes 0.6 K/uL (0.1-1.3); Basophils % 0.9 % (0-1.3); Eosinophils % 1.5 % (0-4.4); Hematocrit 40.7 % (36.0-45.0); Lymphocytes % 27.7 % (15.3-44.8); MPV 9.6 fL (7.6-11.3); Monocytes % 5.5 % (3.3-12.3); RBC Red Blood Cell Count 4.69 M/uL (3.86-4.86)
[2018-12-21 18:56] LABS: Albumin 4.2 g/dL (3.4-5.0); Bilirubin Direct 0.1 mg/dL (0-0.2); Bilirubin Total 0.4 mg/dL (0.2-1.0); Potassium 3.8 mmol/L (3.5-5.1); Protein, Total 7.1 g/dL (6.4-8.2)
[2018-12-21 19:05] LABS: Urine RBC NONE SEEN /HPF (NONE SEEN)
[2018-12-21 19:06] LABS: Urine Bacteria NONE SEEN /HPF (<20); Urine Culture Reflex Order NOT NEEDED
--- NOTE | 2018-12-21 19:09 | RAD REPORT ---
EXAM DESCRIPTION: CT - Stone Protocol - 12/21/2018 6:50 pm CLINICAL HISTORY: Abdominal pain. Flank pain COMPARISON: February 2018 TECHNIQUE: Computed axial tomography of the abdomen pelvis was obtained without oral or IV contrast. Lack of IV and oral contrast limits evaluation of solid organs, bowel, and vessels. Coronal reformat enriqueta images were obtained and reviewed. All CT scans are performed using dose optimization technique as appropriate and may include automated exposure control or mA/KV adjustment according to patient size. FINDINGS: The right kidney is small without significant change from the prior exam. A renal calculus is not seen. An ureteral calculus is not noted. A bladder calculus is not present. The liver, spleen, pancreas and adrenals appear grossly normal There is no evidence of diverticulitis. A small umbilical hernia. The appendix is normal A hysterectomy has been performed. Air is present within the vagina. IMPRESSION: Negative for a genitourinary calculus Air within the vagina could be secondary to recent instrumentation, infection or fistula and should b e correlated clinically
[2018-12-21 20:39] LABS: Urine Blood NEGATIVE (NEG); Urine Glucose NEGATIVE (NEG); Urine Protein NEGATIVE (NEG); Urine pH 5.5 (5.0-7.0)
--- NOTE | 2018-12-21 21:34 | ER ---
Nurse's Notes [facility] Name: Boone Sommer Age: 38 yrs Sex: Female : 1980 Arrival Date: 12/21/2018 Time: 16:36 Bed 30 Private MD: Braxton Cuba Diagnosis: Unspecified abdominal pain;Unspecified renal colic;Essential (primary) hypertension Presentation: 12/21 16:43 Presenting complaint: Right flank pain since this morning. Transition of care: patient hb was not received from another setting of care. Onset of symptoms was December 21, 2018. Risk Assessment: Do you want to hurt yourself or someone else? Patient reports no desire to harm self or others. Care prior to arrival: None. 16:43 Method Of Arrival: Ambulatory hb 16:43 Acuity: [place] 3 hb 18:34 Initial Sepsis Screen: Does the patient meet any 2 criteria? No. Patient's initial rv sepsis screen is negative. Does the patient have a suspected source of infection? No. Patient's initial sepsis screen is negative. CHEMIST PHYSICAL: 16:45 LMP N/A - Hysterectomy hb Historical: - Allergies: 16:45 No Known Allergies; hb - Home Meds: 16:45 amlodipine oral [Active]; Lexapro Oral [Active]; Metoprolol Tartrate Oral [Active]; hb telmisartan Oral [Active]; - PMHx: 16:45 "small right kidney"; Hypertension; hb - PSHx: 16:45 Hysterectomy; hb - Immunization history:: Adult Immunizations up to date. - Social history:: Smoking status: Patient uses tobacco products, smokes one pack cigarettes per day. - Ebola Screening: : No symptoms or risks identified at this time. Screenin:34 Abuse screen: Denies threats or abuse. Denies injuries from another. Nutritional rv screening: No deficits noted. Tuberculosis screening: No symptoms or risk factors identified. Fall Risk None identified. Assessment: 18:33 General: Appears in no apparent distress. comfortable, Behavior is calm, cooperative. rv Pain: Complains of pain in right mid back. Neuro: Level of Consciousness is awake, alert, obeys commands, Oriented to person, place, time, situation. Cardiovascular: Capillary refill < 3 seconds. Respiratory: Airway is patent. GI: No signs and/or symptoms were reported involving the gastrointestinal system. : No signs and/or symptoms were reported regarding the genitourinary system. EENT: No signs and/or symptoms were reported regarding the EENT system. Derm: Skin is intact. Musculoskeletal: Reports pain in right mid back. 20:29 Reassessment: Patient appears in no apparent distress at this time. Patient and/or rv family updated on plan of care and expected duration. Pain level reassessed. Patient is alert, oriented x 3, equal unlabored respirations, skin warm/dry/pink. Vital Signs: 16:45 BP 189 / 98; Pulse 102; Resp 16; Temp 97.9; Pulse Ox 100% on R/A; Pain 7/10; hb 18:10 BP 181 / 106; Pulse 84; Resp 18 S; Pulse Ox 99% on R/A; rv 18:30 BP 173 / 112; Pulse 83; Resp 16; Pulse Ox 99% on R/A; rv 19:40 BP 169 / 102; Pulse 80; Resp 18 S; Pulse Ox 99% on R/A; rv 20:00 BP 180 / 110; Pulse 92; Resp 18 S; Pulse Ox 99% on R/A; rv 20:30 BP 165 / 94; Pulse 84; Resp 18 S; Pulse Ox 97% on R/A; rv 21:00 BP 158 / 84; Pulse 85; Resp 17 S; Pulse Ox 98% on R/A; rv 21:30 BP 167 / 106; Pulse 90; Resp 16 S; Pulse Ox 100% on R/A; rv ED Course: 16:36 Patient arrived in ED. as 16:36 Braxton Cuba MD is Private Physician. as 16:44 Triage completed. hb 16:45 Arm band placed on. hb 17:53 Jaja Taylor FNP-C is [facility]. snw 17:53 Shaka Luis MD is Attending Physician. snw 18:10 Inserted saline lock: 20 gauge in right antecubital area, using aseptic technique. rv Blood collected. 18:33 Urine Microscopic Only Sent. rv 18:33 Urine Culture Sent. rv 18:34 Patient has correct armband on for positive identification. Placed in gown. Bed in low rv position. Call light in reach. Side rails up X 1. Adult w/ patient. Pulse ox on. NIBP on. 18:50 CT Stone Protocol In Process Unspecified. EDMS 21:33 Braxton Cuba MD is Referral Physician. snw 21:49 No provider procedures requiring assistance completed. IV discontinued, bleeding rv controlled, No redness/swelling at site. Pressure dressing applied. Administered Medications: 18:32 Drug: NS 0.9% 1000 ml Route: IV; Rate: 1 bolus; Site: right antecubital; rv 20:29 Follow up: IV Status: Completed infusion rv 18:33 Drug: fentaNYL (PF) 50 mcg Route: IVP; Site: right antecubital; rv 20:29 Follow up: Response: Pain is decreased rv 19:15 Drug: fentaNYL (PF) 50 mcg Route: IM; Site: right deltoid; rv 20:29 Follow up: Response: Pain is decreased rv Outcome: 21:34 Discharge ordered by MD. snw 21:50 Discharged to home ambulatory. rv 21:50 Condition: good 21:50 Discharge instructions given to patient, Instructed on discharge instructions, follow up and referral plans. medication usage, Demonstrated understanding of instructions, follow-up care, medications, Prescriptions given X 3. 21:50 Patient left the ED. rv Signatures: Dispatcher [employer] EDMS Jaja Taylor, CLAM SHUCKING MACHINE TENDER-C CLAM SHUCKING MACHINE TENDER-CsnJacqueline Barbour as Melisa Dave, JU RN Aj Arndt, RN RN rv Corrections: (The following items were deleted from the chart) 16:46 16:45 Pulse 102bpm; Resp 16bpm; Pulse Ox 100% RA; Temp 97.9F; Pain 7/10; hb hb 16:47 16:45 BP 189 / 140; Pulse 102bpm; Resp 16bpm; Pulse Ox 100% RA; Temp 97.9F; Pain 7/10; hb hb
--- NOTE | 2018-12-21 21:34 | EDPHYS ---
Physician Documentation [facility] Name: Boone Sommer Age: 38 yrs Sex: Female : 1980 Arrival Date: 12/21/2018 Time: 16:36 Bed 30 Private MD: Braxton Cuba ED Physician Shaka Luis HPI: 12/21 18:31 This 38 yrs old Female presents to ER via Ambulatory with complaints of Flank snw Pain. 18:31 The patient complains of pain in the right mid back. The pain does not radiate. Onset: snw The symptoms/episode began/occurred suddenly, this morning. Associated signs and symptoms: The patient has no apparent associated signs or symptoms. Severity of pain: At its worst the pain was moderate. The patient has experienced a previous episode, but today's symptoms are not as bad as this previous episode, pt had pyelo, + renal artery stenosis, HTN. It is unknown whether or not the patient has recently seen a physician. 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 - Social history:: Smoking status: Patient uses tobacco products, smokes one pack cigarettes per day. - Ebola Screening: : No symptoms or risks identified at this time. ROS: 18:30 Constitutional: Negative for fever, chills, and weight loss, Eyes: Negative for injury, snw pain, redness, and discharge, ENT: Negative for injury, pain, and discharge, Neck: Negative for injury, pain, and swelling, Cardiovascular: Negative for chest pain, palpitations, and edema, Respiratory: Negative for shortness of breath, cough, wheezing, and pleuritic chest pain, : Negative for injury, bleeding, discharge, and swelling, MS/Extremity: Negative for injury and deformity, Skin: Negative for injury, rash, and discoloration, Neuro: Negative for headache, weakness, numbness, tingling, and seizure. 18:30 Abdomen/GI: Positive for abdominal cramps. 18:30 Back: Positive for flank pain, on the right. Exam: 18:29 Constitutional: This is a well developed, well nourished patient who is awake, alert, snw and in no acute distress. Head/Face: Normocephalic, atraumatic. Eyes: Pupils equal round and reactive to light, extra-ocular motions intact. Lids and lashes normal. Conjunctiva and sclera are non-icteric and not injected. Cornea within normal limits. Periorbital areas with no swelling, redness, or edema. ENT: Nares patent. No nasal discharge, no septal abnormalities noted. Tympanic membranes are normal and external auditory canals are clear. Oropharynx with no redness, swelling, or masses, exudates, or evidence of obstruction, uvula midline. Mucous membranes moist. Neck: Trachea midline, no thyromegaly or masses palpated, and no cervical lymphadenopathy. Supple, full range of motion without nuchal rigidity, or vertebral point tenderness. No Meningismus. Chest/axilla: Normal chest wall appearance and motion. Nontender with no deformity. No lesions are appreciated. Cardiovascular: Regular rate and rhythm with a normal S1 and S2. No gallops, murmurs, or rubs. Normal PMI, no JVD. No pulse deficits. Respiratory: Lungs have equal breath sounds bilaterally, clear to auscultation and percussion. No rales, rhonchi or wheezes noted. No increased work of breathing, no retractions or nasal flaring. Skin: Warm, dry with normal turgor. Normal color with no rashes, no lesions, and no evidence of cellulitis. MS/ Extremity: Pulses equal, no cyanosis. Neurovascular intact. Full, normal range of motion. Neuro: Awake and alert, GCS 15, oriented to person, place, time, and situation. Cranial nerves II-XII grossly intact. Motor strength 5/5 in all extremities. Sensory grossly intact. Cerebellar exam normal. Normal gait. 18:29 Abdomen/GI: Inspection: abdomen appears normal, Bowel sounds: normal, Palpation: abdomen is soft and non-tender. 18:29 Back: CVA tenderness, that is moderate, is noted on the right. Vital Signs: 16:45 BP 189 / 98; Pulse 102; Resp 16; Temp 97.9; Pulse Ox 100% on R/A; Pain 7/10; hb 18:10 BP 181 / 106; Pulse 84; Resp 18 S; Pulse Ox 99% on R/A; rv 18:30 BP 173 / 112; Pulse 83; Resp 16; Pulse Ox 99% on R/A; rv 19:40 BP 169 / 102; Pulse 80; Resp 18 S; Pulse Ox 99% on R/A; rv 20:00 BP 180 / 110; Pulse 92; Resp 18 S; Pulse Ox 99% on R/A; rv 20:30 BP 165 / 94; Pulse 84; Resp 18 S; Pulse Ox 97% on R/A; rv 21:00 BP 158 / 84; Pulse 85; Resp 17 S; Pulse Ox 98% on R/A; rv 21:30 BP 167 / 106; Pulse 90; Resp 16 S; Pulse Ox 100% on R/A; rv MDM: 17:59 Patient medically screened. snw 21:41 Data reviewed: vital signs, nurses notes. Data interpreted: Pulse oximetry: on room air snw is 99 %. Interpretation: normal. Counseling: I had a detailed discussion with the patient and/or guardian regarding: the historical points, exam findings, and any diagnostic results supporting the discharge/admit diagnosis, lab results, radiology results, the need for outpatient follow up, to return to the emergency department if symptoms worsen or persist or if there are any questions or concerns that arise at home. Special discussion: Based on the history and exam findings, there is no indication for further emergent testing or inpatient evaluation. I discussed with the patient/guardian the need to see the hydrography teacher for further evaluation of the symptoms. I discussed with the patient/guardian the need to see the substation supervisor for further evaluation of the symptoms. 12/21 17:59 Order name: Urine Microscopic Only; Complete Time: 19:08 snw 12/21 18:04 Order name: Basic Metabolic Panel; Complete Time: 18:57 snw 12/21 18:04 Order name: CBC with Diff; Complete Time: 18:51 snw 12/21 18:04 Order name: Hepatic Function; Complete Time: 18:57 snw 12/21 18:29 Order name: Urine Dipstick--Ancillary (enter results); Complete Time: 20:41 ms 12/21 17:59 Order name: Urine Test (obtain specimen); Complete Time: 18:33 snw 12/21 17:59 Order name: Urine Dipstick-Ancillary (obtain specimen); Complete Time: 18:33 snw 12/21 18:04 Order name: IV Saline Lock; Complete Time: 18:33 snw 12/21 18:04 Order name: CT Stone Protocol; Complete Time: 19:29 snw 12/21 18:29 Order name: Urine --Ancillary (enter results); Complete Time: 20:41 ms 12/21 18:04 Order name: Labs collected and sent; Complete Time: 18:33 snw Administered Medications: 18:32 Drug: NS 0.9% 1000 ml Route: IV; Rate: 1 bolus; Site: right antecubital; rv 20:29 Follow up: IV Status: Completed infusion rv 18:33 Drug: fentaNYL (PF) 50 mcg Route: IVP; Site: right antecubital; rv 20:29 Follow up: Response: Pain is decreased rv 19:15 Drug: fentaNYL (PF) 50 mcg Route: IM; Site: right deltoid; rv 20:29 Follow up: Response: Pain is decreased rv Disposition: 12/22 07:55 Co-signature as Attending Physician, Shaka Luis MD I agree with the assessment and keeley plan of care. Disposition: 12/21/18 21:34 Discharged to Home. Impression: Unspecified abdominal pain, Unspecified renal colic, Essential (primary) hypertension. - Condition is Stable. - Discharge Instructions: Abdominal Pain, Adult, Hypertension, Renal Colic, Rehydration, Adult, Managing Your Hypertension. - Prescriptions for Augmentin 875- 125 mg Oral Tablet - take 1 tablet by ORAL route every 12 hours for 10 days; 20 tablet. Bentyl 20 mg Oral Tablet - take 1 tablet by ORAL route every 6 hours As needed; 20 tablet. Tylenol- Codeine #3 300-30 mg Oral Tablet - take 2 tablets by ORAL route every 6 hours As needed; 12 tablet. - Work release form, Medication Reconciliation Form, Thank You Letter, Antibiotic Education, Prescription Opioid Use form. - Follow up: Braxton Cuba MD; When: 2 - 3 days; Reason: Recheck today's complaints, Continuance of care, Re-evaluation by your physician. Follow up: Emergency Department; When: As needed; Reason: Worsening of condition. Signatures: Dispatcher [employer] EDShaka Ferrari MD MD cha Therrien, Shelly, FRONT COUNTER ATTENDANT-C FRONT COUNTER ATTENDANT-Csnw Melisa Dave, RN RN Aj Arndt, JU RN rv Corrections: (The following items were deleted from the chart) 12/21 21:50 21:34 12/21/2018 21:34 Discharged to Home. Impression: Unspecified abdominal pain; rv Unspecified renal colic; Essential (primary) hypertension. Condition is Stable. Forms are Medication Reconciliation Form, Thank You Letter, Antibiotic Education, Prescription Opioid Use. Follow up: Braxton Cuba; When: 2 - 3 days; Reason: Recheck today's complaints, Continuance of care, Re-evaluation by your physician. Follow up: Emergency Department; When: As needed; Reason: Worsening of condition. snw
== END 2018-12-21 21:50 | disposition home or self-care (01) ==
LOC: ER 16:34
DX: R10.9 Unspecified abdominal pain (principal); N23 Unspecified renal colic; I10 Essential (primary) hypertension; F17.210 Nicotine dependence, cigarettes, uncomplicated
CPT/HCPCS: 36415; 74176; 76377; 80048; 80076; 81003; 81015; 81025; 85025; 96361; 96372; 96374; 99284; J3010; J7030

== ENCOUNTER 2019-03-09 10:20 | Emergency (ER) | payer OTHER ==
[2019-03-09] MEDS ORDERED: cloNIDine HCl 0.1 MG TAB ONE (11:13)
[2019-03-09 11:15] LABS: Absolute Lymphocytes (CBC) 2.4 K/uL (0.7-4.9); Absolute Monocytes 0.4 K/uL (0.1-1.3); Absolute Neutrophil 4.6 K/uL (1.8-8.0); Basophils % 1.4 % (0-1.3); Eosinophils % 2.1 % (0-4.4); Hematocrit 44.5 % (36.0-45.0); Lymphocytes % 31.6 % (15.3-44.8); MPV 9.3 fL (7.6-11.3); RBC Red Blood Cell Count 5.22 M/uL (3.86-4.86)
[2019-03-09 11:35] LABS: BUN Blood Urea Nitrogen 16 mg/dL (7-18); Bicarbonate 26 mmol/L (21-32); Glucose Level 94 mg/dL (74-106); Potassium 4.1 mmol/L (3.5-5.1); Sodium Level 138 mmol/L (136-145); Troponin (Emerg Dept Use Only) < 0.02 ng/mL (0.0-0.045)
--- NOTE | 2019-03-09 12:08 | EDPHYS ---
Physician Documentation [facility] Name: Boone Sommer Age: 39 yrs Sex: Female : 1980 Arrival Date: 03/09/2019 Time: 10:23 Bed 6 Private MD: Braxton Cuba ED Physician Laurent Nascimento HPI: 03/09 10:57 This 39 yrs old Female presents to ER via Ambulatory with complaints of High rn Blood Pressure. 10:57 The patient has elevated blood pressure and discovered this at a physician's office. rn Onset: The symptoms/episode began/occurred at an unknown time. Modifying factors:. Severity of symptoms: At its worst the blood pressure was moderate, in the emergency department the blood pressure is unchanged. The patient has experienced similar episodes in the past. Reports blood pressure is always high, has small kidneys and renal artery problems, is on 3 HTN meds, takes them as prescribed, otherwise feels fine, was at doctors office for steroid injection of shoulder, denies focal neurological problems/chest pain/sob/abd pain/vomiting/headache. Sent by her clinician despite her explaining that this is near normal for her. . 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 - Social history:: Smoking status: . - Family history:: not pertinent. - Ebola Screening: : Patient negative for fever greater than or equal to 101.5 degrees Fahrenheit, and additional compatible Ebola Virus Disease symptoms Patient denies exposure to infectious person Patient denies travel to an Ebola-affected area in the 21 days before illness onset No symptoms or risks identified at this time. - Hospitalizations: : No recent hospitalization is reported. ROS: 10:57 Constitutional: Negative for fever, chills, and weight loss, Eyes: Negative for injury, rn pain, redness, and discharge, Neck: Negative for injury, pain, and swelling, Cardiovascular: Negative for chest pain, palpitations, and edema, Respiratory: Negative for shortness of breath, cough, wheezing, and pleuritic chest pain, Abdomen/GI: Negative for abdominal pain, nausea, vomiting, diarrhea, and constipation, MS/Extremity: Negative for injury and deformity, Skin: Negative for injury, rash, and discoloration, Neuro: Negative for headache, weakness, numbness, tingling, and seizure. Exam: 10:57 Constitutional: This is a well developed, well nourished patient who is awake, alert, rn and in no acute distress. Smiling, joking. Head/Face: Normocephalic, atraumatic. Eyes: Pupils equal round and reactive to light, extra-ocular motions intact. Lids and lashes normal. Conjunctiva and sclera are non-icteric and not injected. Cornea within normal limits. Periorbital areas with no swelling, redness, or edema. Cardiovascular: Regular rate and rhythm. No murmur. No pulse deficits. Respiratory: Lungs have equal breath sounds bilaterally, clear to auscultation. No increased work of breathing, no retractions or nasal flaring. Abdomen/GI: sof,t non-tender, no pulsatile masses MS/ Extremity: Pulses equal, no cyanosis. Neurovascular intact. Full, normal range of motion. Equal circumference. Neuro: Awake and alert, GCS 15, oriented to person, place, time, and situation. Cranial nerves II-XII grossly intact (except for mild pre-existing Lima palsy). Motor strength 5/5 in all extremities. Sensory grossly intact. 11:36 ECG was reviewed by the Attending Physician. rn Vital Signs: 10:39 Pulse 92; Resp 16; Temp 98.1; Pulse Ox 99% ; Weight 100.7 kg; Height 5 ft. 3 in. sv (160.02 cm); Pain 0/10; 11:21 BP 162 / 98; em1 12:05 BP 148 / 78; Pulse 78; Resp 14; Pulse Ox 97% on R/A; Pain 0/10; em1 10:39 Body Mass Index 39.33 (100.70 kg, 160.02 cm) sv MDM: 10:47 Patient medically screened. rn 12:07 Differential diagnosis: hypertensive crisis, Malignant HTN. Data reviewed: vital signs, rn nurses notes, lab test result(s), EKG, and as a result, I will discharge patient. Counseling: I had a detailed discussion with the patient and/or guardian regarding: the historical points, exam findings, and any diagnostic results supporting the discharge/admit diagnosis, lab results, the need for outpatient follow up, to return to the emergency department if symptoms worsen or persist or if there are any questions or concerns that arise at home. Response to treatment: the patient's symptoms have markedly improved after treatment, and as a result, I will discharge patient. Special discussion: I discussed with the patient/guardian in detail that at this point there is no indication for admission to the hospital. It is understood, however, that if the symptoms persist or worsen the patient needs to return immediately for re-evaluation. Based on the history and exam findings, there is no indication for further emergent testing or inpatient evaluation. I discussed with the patient/guardian the need to see the primary care provider for further evaluation of the symptoms. nephrology. ED course: IMproved BP, still asymptomatic, will refer to nephrology for further care. . 03/09 10:56 Order name: CBC with Diff; Complete Time: 11:36 rn 03/09 10:56 Order name: Basic Metabolic Panel; Complete Time: 11:36 rn 03/09 10:56 Order name: IV Start; Complete Time: 11:55 rn 03/09 10:56 Order name: Troponin (emerg Dept Use Only); Complete Time: 11:36 rn 03/09 10:56 Order name: EKG; Complete Time: 10:57 rn 03/09 10:56 Order name: EKG - Nurse/Tech; Complete Time: 11:55 rn EC:36 Rate is 80 beats/min. Rhythm is regular. QRS [place] is Normal. RI interval is normal. QRS rn interval is normal. QT interval is normal. No Q waves. T waves are Normal. No ST changes noted. Clinical impression: LVH and No evidence of ischemia. Interpreted by me. Reviewed by me. Administered Medications: 11:00 Drug: cloNIDine 0.2 mg Route: PO; iw Disposition: 03/09/19 12:08 Discharged to Home. Impression: Hypertension. - Condition is Stable. - Discharge Instructions: Hypertension. - Medication Reconciliation Form, Thank You Letter, Antibiotic Education, Prescription Opioid Use form. - Follow up: Chris Espinoza MD; When: As needed; Reason: Recheck today's complaints, Re-evaluation by your physician. - Problem is chronic. - Symptoms have improved. Signatures: Dispatcher [employer] Shivani Hendricks RN RN Anjelica Sarkar RN RN iw Nieto, Roman, MD MD professional golf tournament player: (The following items were deleted from the chart) 12:27 12:08 03/09/2019 12:08 Discharged to Home. Impression: Hypertension. Condition is iw Stable. Forms are Medication Reconciliation Form, Thank You Letter, Antibiotic Education, Prescription Opioid Use. Follow up: Chris Espinoza; When: As needed; Reason: Recheck today's complaints, Re-evaluation by your physician. Problem is chronic. Symptoms have improved. rn
--- NOTE | 2019-03-09 12:08 | ER ---
Nurse's Notes [facility] Name: Boone Sommer Age: 39 yrs Sex: Female : 1980 Arrival Date: 03/09/2019 Time: 10:23 Bed 6 Private MD: Braxton Cuba Diagnosis: Hypertension Presentation: 03/09 10:37 Presenting complaint: Patient states: was at her MD office and her BP was 197/140s and sv told her to come to the ER. Denies CP, SOB, dizziness. Transition of care: patient was not received from another setting of care. Onset of symptoms was March 09, 2019. Risk Assessment: Do you want to hurt yourself or someone else? Patient reports no desire to harm self or others. Initial Sepsis Screen: Does the patient meet any 2 criteria? No. Patient's initial sepsis screen is negative. Does the patient have a suspected source of infection? No. Patient's initial sepsis screen is negative. Care prior to arrival: None. 10:37 Method Of Arrival: Ambulatory sv 10:44 Acuity: [place] 2 sv Triage Assessment: 10:41 General: Appears in no apparent distress. comfortable, well groomed, well developed, sv Behavior is calm, cooperative, appropriate for age. Pain: Denies pain. Neuro: Level of Consciousness is awake, alert, obeys commands, Oriented to person, place, time, situation, Gait is steady. Cardiovascular: Denies chest pain, shortness of breath. Respiratory: Respiratory effort is even, unlabored, Respiratory pattern is regular, symmetrical. Derm: Skin is pink, warm \\T\\ dry. 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 - Social history:: Smoking status: . - Family history:: not pertinent. - Ebola Screening: : Patient negative for fever greater than or equal to 101.5 degrees Fahrenheit, and additional compatible Ebola Virus Disease symptoms Patient denies exposure to infectious person Patient denies travel to an Ebola-affected area in the 21 days before illness onset No symptoms or risks identified at this time. - Hospitalizations: : No recent hospitalization is reported. Screenin:55 Abuse screen: Denies threats or abuse. Denies injuries from another. Nutritional iw screening: No deficits noted. Tuberculosis screening: No symptoms or risk factors identified. Fall Risk IV access (20 points). Assessment: 11:00 General: Appears in no apparent distress. comfortable, Behavior is calm, cooperative. iw Pain: Denies pain. Neuro: Level of Consciousness is awake, alert, obeys commands, Moves all extremities. Full function. Neuro: Denies blurred vision dizziness, headache. Cardiovascular: Patient's skin is warm and dry. Respiratory: Airway is patent Respiratory pattern is regular. Musculoskeletal: Range of motion: intact in all extremities. 11:55 Reassessment: Patient appears in no apparent distress at this time. Patient and/or iw family updated on plan of care and expected duration. Pain level reassessed. Patient is alert, oriented x 3, equal unlabored respirations, skin warm/dry/pink. Vital Signs: 10:39 Pulse 92; Resp 16; Temp 98.1; Pulse Ox 99% ; Weight 100.7 kg; Height 5 ft. 3 in. sv (160.02 cm); Pain 0/10; 11:21 BP 162 / 98; em1 12:05 BP 148 / 78; Pulse 78; Resp 14; Pulse Ox 97% on R/A; Pain 0/10; em1 10:39 Body Mass Index 39.33 (100.70 kg, 160.02 cm) sv ED Course: 10:23 Patient arrived in ED. mr 10:23 Braxton Cuba MD is Private Physician. mr 10:39 Arm band placed on. sv 10:44 Triage completed. sv 10:47 Laurent Nascimento MD is Attending Physician. rn 10:48 Anjelica Nguyen, TINY is Primary Nurse. iw 11:07 EKG done, by engineering specialist technician. reviewed by Laurent Nascimento MD. at1 11:20 Patient has correct armband on for positive identification. iw 12:08 Chris Espinoza MD is Referral Physician. rn 12:26 No provider procedures requiring assistance completed. Patient did not have IV access iw during this emergency room visit. Administered Medications: 11:00 Drug: cloNIDine 0.2 mg Route: PO; iw Outcome: 12:08 Discharge ordered by . tiny 12:26 Discharged to home ambulatory. iw 12: Condition: good 12:26 Discharge instructions given to patient, Instructed on discharge instructions, follow up and referral plans. Demonstrated understanding of instructions, follow-up care. 12:27 Patient left the ED. iw Signatures: Shivani Reyes RN RN Nora Tovar Irene, RN RN iw Laurent Nascimento MD MD rn Martinez, Eric em1 Melissa Cortes, pipe fitter fire sprinkler systems EKG Tat1 Corrections: (The following items were deleted from the chart) 10:43 10:39 Pulse 92bpm; Resp 16bpm; Pulse Ox 99%; Temp 98.1F; 100.7 kg; Height 5 ft. 3 in.; sv BMI: 39.3; Pain 0/10; sv
--- NOTE | 2019-03-09 15:41 | EKG ---
Test Date: 2019-03-09 Test Time: 11:03:32 Dental Ceramist Assistant: KENROY MEASUREMENT RESULTS: Intervals: Rate: 80 TX: 176 QRSD: 98 QT: 402 QTc: 463 [place]: P: 46 TX: 176 QRS: -11 T: 55 INTERPRETIVE STATEMENTS: Normal sinus rhythm Possible Left atrial enlargement Left ventricular hypertrophy Abnormal ECG Compared to ECG 09/03/2018 11:49:14 Left ventricular hypertrophy now present Prolonged QT interval no longer present Electronically Signed On 03-09-19 15:40:43 CDT by Ramana Voss
== END 2019-03-09 12:27 | disposition home or self-care (01) ==
LOC: ER 10:20
DX: I10 Essential (primary) hypertension (principal)
CPT/HCPCS: 36415; 80048; 84484; 85025; 93005; 99283

== ENCOUNTER 2019-03-23 03:33 | Emergency (ER) | payer OTHER ==
--- OUTSIDE RECORDS SUMMARY | 2019-03-23 03:34 | XMS REPORT ---
:1980 Author Organization [employer] Care Team Providers Name Role Phone Brad Chow Provider Role Unavailable Allergies No Known Allergies Problems Problem Type Condition Code Onset Dates Condition Status Problem Carpal tunnel syndrome of right G56.01 Active wrist Medications No Known Medications Results No Known Results Summary Purpose [employer] Submission
--- OUTSIDE RECORDS SUMMARY | 2019-03-23 03:34 | XMS REPORT ---
:1980 Author Organization [employer] Care Team Providers Name Role Phone Brad Chow Provider Role Unavailable Allergies, Adverse Reactions, Alerts Substance Reaction Event Type N.K.D.A. Info Not Available Non Drug Allergy Problems Problem Type Condition Code Onset Dates Condition Status Assessment Acute pain of right shoulder M25.511 Active Problem Carpal tunnel syndrome of right G56.01 Active wrist Assessment Carpal tunnel syndrome of right G56.01 Active wrist Assessment Impingement syndrome of right M75.41 Active shoulder Assessment Subacromial bursitis of right M75.51 Active shoulder joint Medications Medication Code Code Instructions Start End Status Dosage System Date Date Telmisartan-HC [facility] [address]-80 Active not TZ defined Metoprolol [facility] [address]-41 Active not Succinate ER defined Lexapro [facility] 34362778803 10 MG Orally Active 1 tablet Once a day Amlodipine NDC 0 Active not Besylate defined Ibuprofen NDC 0 Active not defined Results No Known Results Summary Purpose [employer] Submission
[2019-03-23] MEDS ORDERED: FENTANYL CITR 100 MCG/2 ML ONE (04:23)
[2019-03-23] MEDS ORDERED: FAMOTIDINE 20 MG/2 ML VIAL IV ONE (04:24)
[2019-03-23 04:32] LABS: Protime INR 0.82
[2019-03-23 04:33] LABS: Absolute Lymphocytes (CBC) 2.4 K/uL (0.7-4.9); Absolute Monocytes 0.6 K/uL (0.1-1.3); Absolute Neutrophil 7.3 K/uL (1.8-8.0); Basophils % 0.7 % (0-1.3); Hematocrit 40.8 % (36.0-45.0); Lymphocytes % 22.9 % (15.3-44.8); MPV 9.9 fL (7.6-11.3); Monocytes % 5.6 % (3.3-12.3); RBC Red Blood Cell Count 4.71 M/uL (3.86-4.86)
[2019-03-23 04:49] LABS: ALT/SGPT 24 U/L (12-78); AST/SGOT 13 U/L (15-37); Albumin 3.4 g/dL (3.4-5.0); Alkaline Phosphatase 92 U/L (45-117); BUN Blood Urea Nitrogen 14 mg/dL (7-18); Bicarbonate 23 mmol/L (21-32); Bilirubin Direct < 0.1 mg/dL (0-0.2); Bilirubin Total 0.2 mg/dL (0.2-1.0); Glucose Level 114 mg/dL (74-106); Lipase 142 U/L (73-393); Magnesium 1.9 mg/dL (1.8-2.4); NT PRO-BNP 2916 pg/mL (<125); Potassium 3.8 mmol/L (3.5-5.1); Protein, Total 6.6 g/dL (6.4-8.2); Sodium Level 140 mmol/L (136-145); Troponin (Emerg Dept Use Only) 0.02 ng/mL (0.0-0.045)
[2019-03-23] MEDS ORDERED: HYDRALAZINE HCL 20 MG/ML VIAL ONE (05:35)
--- NOTE | 2019-03-23 06:35 | ER ---
Nurse's Notes [facility] Name: Boone Sommer Age: 39 yrs Sex: Female : 1980 Arrival Date: 03/23/2019 Time: 03:38 Bed 16 Private MD: Diagnosis: Chest pain, unspecified Presentation: 03/23 03:45 Presenting complaint: Patient states: sudden chest pain started at 0230H today rr5 radiating to back its like a mirror, pain score of 10/10 that time. right now its 6/10. denies cough, fever, congestion. 03:45 Transition of care: patient was not received from another setting of care. Onset of rr5 symptoms was March 23, 2019 at 02:30. Risk Assessment: Do you want to hurt yourself or someone else? Patient reports no desire to harm self or others. Initial Sepsis Screen: Does the patient meet any 2 criteria? No. Patient's initial sepsis screen is negative. Does the patient have a suspected source of infection? No. Patient's initial sepsis screen is negative. Care prior to arrival: Medication(s) given: clonidine. 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 - Social history:: Smoking status: Patient uses tobacco products, smokes one pack cigarettes per day. Patient uses alcohol, occasionally. Patient/guardian denies using street drugs. - Ebola Screening: : Patient negative for fever greater than or equal to 101.5 degrees Fahrenheit, and additional compatible Ebola Virus Disease symptoms Patient denies exposure to infectious person Patient denies travel to an Ebola-affected area in the 21 days before illness onset. Screenin:25 Abuse screen: Denies threats or abuse. Denies injuries from another. Nutritional rr5 screening: No deficits noted. Tuberculosis screening: No symptoms or risk factors identified. Fall Risk IV access (20 points). Total Solano Fall Scale indicates No Risk (0-24 pts). Assessment: 04:00 General: Appears in no apparent distress. uncomfortable, Behavior is calm, cooperative, rr5 appropriate for age. Pain: Complains of pain in chest Pain radiates to back Pain currently is 6 out of 10 on a pain scale. Quality of pain is described as aching, Pain began suddenly, Is intermittent. 04:00 Neuro: Level of Consciousness is awake, alert, obeys commands, Oriented to person, rr5 place, time, situation, Appropriate for age. Cardiovascular: Reports chest pain, Capillary refill < 3 seconds Patient's skin is warm and dry. Respiratory: Airway is patent Respiratory effort is even, unlabored, Respiratory pattern is regular, symmetrical. GI: No signs and/or symptoms were reported involving the gastrointestinal system. : No signs and/or symptoms were reported regarding the genitourinary system. EENT: No signs and/or symptoms were reported regarding the EENT system. Derm: Skin is intact, Skin temperature is warm. Musculoskeletal: Capillary refill < 3 seconds, Range of motion: intact in all extremities, Reports pain in back. 05:00 Reassessment: Patient appears in no apparent distress at this time. Patient is alert, rr5 oriented x 3, equal unlabored respirations, skin warm/dry/pink. Patient states symptoms have improved. 05:55 Reassessment: Patient appears in no apparent distress at this time. Patient is alert, rr5 oriented x 3, equal unlabored respirations, skin warm/dry/pink. i feel better now as verbalized. repeat troponin extracted and sent to laboratory. Patient states feeling better. Patient states symptoms have improved. Vital Signs: 03:47 BP 168 / 121; Pulse 92; Resp 20; Temp 98; Pulse Ox 99% ; Weight 99.79 kg; Height 5 ft. rr5 3 in. (160.02 cm); Pain 6/10; 04:30 BP 176 / 107; Pulse 90; Resp 18; Pulse Ox 99% ; rr5 05:00 BP 166 / 110; Pulse 89; Resp 16; Pulse Ox 98% ; rr5 05:25 BP 156 / 84; Pulse 79; Resp 16; Pulse Ox 100% on R/A; rr5 06:00 BP 149 / 91; Pulse 85; Resp 17; Temp 98.1; Pulse Ox 99% ; rr5 06:38 BP 153 / 101; Pulse 83; Resp 17; Temp 98.2; Pulse Ox 99% on R/A; rr5 03:47 Body Mass Index 38.97 (99.79 kg, 160.02 cm) rr5 ED Course: 03:38 Patient arrived in ED. fc 03:42 Ranjit Montenegro MD is Attending Physician. gs 03:43 Miguel Burris, RN is Primary Nurse. rr5 03:45 Arm band placed on. EKG completed in triage. Results shown to MD. rr5 03:55 Patient has correct armband on for positive identification. Bed in low position. Call rr5 light in reach. monitoring analyst on. Pulse ox on. NIBP on. 04:02 Triage completed. rr5 04:10 Initial lab(s) drawn, by me, sent to lab. Inserted saline lock: 22 gauge in left rr5 forearm, using aseptic technique. Blood collected. 04:10 No provider procedures requiring assistance completed. Patient maintains SpO2 rr5 saturation greater than 95% on room air. 04:44 XRAY Chest (1 view) In Process Unspecified. EDMS 05:55 Repeat lab(s) drawn. by me, sent to lab. rr5 06:35 Ramana Voss MD is Referral Physician. gs 06:55 IV discontinued, intact, bleeding controlled, No redness/swelling at site. Pressure rr5 dressing applied. Administered Medications: 04:10 Drug: fentaNYL (PF) 50 mcg Route: IVP; Site: left forearm; rr5 05:10 Follow up: Response: No adverse reaction rr5 04:12 Drug: Pepcid 20 mg Route: IVP; Site: left forearm; rr5 05:10 Follow up: Response: No adverse reaction rr5 05:24 Drug: hydrALAZINE 20 mg Route: IV; Rate: calculated rate; Site: left forearm; rr5 06:30 Follow up: Response: No adverse reaction; IV Status: Completed infusion rr5 Outcome: 06:34 Discharge ordered by . gs 06:55 Discharged to home ambulatory, with family. rr5 06:55 Condition: stable 06:55 Discharge instructions given to patient, Instructed on discharge instructions, follow up and referral plans. Demonstrated understanding of instructions, follow-up care. 06:56 Patient left the ED. rr5 Signatures: Dispatcher [employer] Patricia Ewing RN RN Ranjit Montenegro MD MD gs Roque, Raymond, RN RN rr5
--- NOTE | 2019-03-23 06:35 | EDPHYS ---
Physician Documentation [facility] Name: Boone Sommer Age: 39 yrs Sex: Female : 1980 Arrival Date: 03/23/2019 Time: 03:38 Bed 16 Private MD: ED Physician Ranjit Montenegro HPI: 03/23 06:44 This 39 yrs old Female presents to ER via Wheelchair with complaints of Chest gs Pain. 06:44 The patient or guardian reports chest pain that is located primarily in the epigastric gs area. The pain radiates to up sternum. Associated signs and symptoms: Pertinent negatives: shortness of breath, vomiting. The chest pain is described as a heaviness. Duration: The patient or guardian reports a single episode, that is still ongoing. Modifying factors: The symptoms are alleviated by nothing. the symptoms are aggravated by nothing. Severity of pain: At its worst the pain was. 06:47 The patient has experienced similar episodes in the past, a few times. 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 - Social history:: Smoking status: Patient uses tobacco products, smokes one pack cigarettes per day. Patient uses alcohol, occasionally. Patient/guardian denies using street drugs. - Ebola Screening: : Patient negative for fever greater than or equal to 101.5 degrees Fahrenheit, and additional compatible Ebola Virus Disease symptoms Patient denies exposure to infectious person Patient denies travel to an Ebola-affected area in the 21 days before illness onset. ROS: 06:47 All other systems are negative. gs Exam: 06:47 Head/Face: Normocephalic, atraumatic. Eyes: Pupils equal round and reactive to light, gs extra-ocular motions intact. Lids and lashes normal. Conjunctiva and sclera are non-icteric and not injected. Cornea within normal limits. Periorbital areas with no swelling, redness, or edema. ENT: Nares patent. No nasal discharge, no septal abnormalities noted. Tympanic membranes are normal and external auditory canals are clear. Oropharynx with no redness, swelling, or masses, exudates, or evidence of obstruction, uvula midline. Mucous membranes moist. Neck: Trachea midline, no thyromegaly or masses palpated, and no cervical lymphadenopathy. Supple, full range of motion without nuchal rigidity, or vertebral point tenderness. No Meningismus. Chest/axilla: Normal chest wall appearance and motion. Nontender with no deformity. No lesions are appreciated. Cardiovascular: Regular rate and rhythm with a normal S1 and S2. No gallops, murmurs, or rubs. Normal PMI, no JVD. No pulse deficits. Respiratory: Lungs have equal breath sounds bilaterally, clear to auscultation and percussion. No rales, rhonchi or wheezes noted. No increased work of breathing, no retractions or nasal flaring. Abdomen/GI: Soft, non-tender, with normal bowel sounds. No distension or tympany. No guarding or rebound. No evidence of tenderness throughout. Back: No spinal tenderness. No costovertebral tenderness. Full range of motion. Skin: Warm, dry with normal turgor. Normal color with no rashes, no lesions, and no evidence of cellulitis. MS/ Extremity: Pulses equal, no cyanosis. Neurovascular intact. Full, normal range of motion. Neuro: Awake and alert, GCS 15, oriented to person, place, time, and situation. Cranial nerves II-XII grossly intact. Motor strength 5/5 in all extremities. Sensory grossly intact. Cerebellar exam normal. Normal gait. 06:47 Constitutional: The patient appears in no acute distress, alert, awake. 06:47 ECG was reviewed by the Attending Physician. Vital Signs: 03:47 BP 168 / 121; Pulse 92; Resp 20; Temp 98; Pulse Ox 99% ; Weight 99.79 kg; Height 5 ft. rr5 3 in. (160.02 cm); Pain 6/10; 04:30 BP 176 / 107; Pulse 90; Resp 18; Pulse Ox 99% ; rr5 05:00 BP 166 / 110; Pulse 89; Resp 16; Pulse Ox 98% ; rr5 05:25 BP 156 / 84; Pulse 79; Resp 16; Pulse Ox 100% on R/A; rr5 06:00 BP 149 / 91; Pulse 85; Resp 17; Temp 98.1; Pulse Ox 99% ; rr5 06:38 BP 153 / 101; Pulse 83; Resp 17; Temp 98.2; Pulse Ox 99% on R/A; rr5 03:47 Body Mass Index 38.97 (99.79 kg, 160.02 cm) rr5 MDM: 03:50 Patient medically screened. 06:47 Differential diagnosis: abnormal EKG, acute myocardial infarction, chest wall pain, gs gastroesophageal reflux disease (GERD). HEART Score: History: Slightly Suspicious (0), ECG: Non specific repolarization disturbance / LBTB / PM (1), Age: < or = 45 years (0), Risk Factors: 1 or 2 risk factors (1), Troponin: < or = 1 x Normal Limit (0). Data reviewed: vital signs, nurses notes, lab test result(s), EKG, radiologic studies. Counseling: I had a detailed discussion with the patient and/or guardian regarding: the historical points, exam findings, and any diagnostic results supporting the discharge/admit diagnosis, the presence of at least one elevated blood pressure reading (>120/80) during this emergency department visit, lab results, radiology results, the need for outpatient follow up. Response to treatment: the patient's symptoms have resolved after treatment, the patient's pain is gone, the patient's condition has returned to base line. 03/23 04:04 Order name: Basic Metabolic Panel; Complete Time: 05:03 03/23 04:04 Order name: CBC with Diff; Complete Time: 05:03 03/23 04:04 Order name: LFT's; Complete Time: 05:03 03/23 04:04 Order name: Magnesium; Complete Time: 05:03 03/23 04:04 Order name: NT PRO-BNP; Complete Time: 05:03 03/23 04:04 Order name: PT-INR; Complete Time: 05:03 03/23 04:04 Order name: Troponin (emerg Dept Use Only); Complete Time: 05:03 03/23 04:04 Order name: XRAY Chest (1 view) 03/23 04:04 Order name: EKG; Complete Time: 04:05 03/23 04:04 Order name: Lipase; Complete Time: 05:03 03/23 05:42 Order name: Troponin (emerg Dept Use Only); Complete Time: 06:33 03/23 04:04 Order name: Cardiac monitoring; Complete Time: 04:24 03/23 04:04 Order name: EKG - Nurse/Tech; Complete Time: 04:24 03/23 04:04 Order name: IV Saline Lock; Complete Time: 04:24 03/23 04:04 Order name: Labs collected and sent; Complete Time: 04:24 03/23 04:04 Order name: O2 Per Protocol; Complete Time: 04:24 03/23 04:04 Order name: O2 Sat Monitoring; Complete Time: 04:24 gs EC:47 Rate is 96 beats/min. Rhythm is regular. RI interval is normal. QRS interval is normal. gs QT interval is prolonged. No Q waves. T waves are Flattened. Clinical impression: NSR w/ Non-specific ST/T Changes. Interpreted by me. Administered Medications: 04:10 Drug: fentaNYL (PF) 50 mcg Route: IVP; Site: left forearm; rr5 05:10 Follow up: Response: No adverse reaction rr5 04:12 Drug: Pepcid 20 mg Route: IVP; Site: left forearm; rr5 05:10 Follow up: Response: No adverse reaction rr5 05:24 Drug: hydrALAZINE 20 mg Route: IV; Rate: calculated rate; Site: left forearm; rr5 06:30 Follow up: Response: No adverse reaction; IV Status: Completed infusion rr5 Disposition: 03/23/19 06:34 Discharged to Home. Impression: Chest pain, unspecified. - Condition is Stable. - Discharge Instructions: Nonspecific Chest Pain. - Medication Reconciliation Form, Thank You Letter, Antibiotic Education, Prescription Opioid Use, Work release form form. - Follow up: Private Physician; When: 1 - 2 days; Reason: Re-evaluation by your physician. Follow up: Ramana Voss MD; When: 2 - 3 days; Reason: Re-evaluation by your physician. Signatures: Dispatcher [employer] EDNE Ranjit Montenegro MD MD gs Roque, Raymond RN RN rr5 Corrections: (The following items were deleted from the chart) 06:35 06:34 03/23/2019 06:34 Discharged to Home. Impression: Chest pain, unspecified. gs Condition is Stable. Forms are Medication Reconciliation Form, Thank You Letter, Antibiotic Education, Prescription Opioid Use. Follow up: Private Physician; When: 1 - 2 days; Reason: Re-evaluation by your physician. gs 06:56 06:35 03/23/2019 06:34 Discharged to Home. Impression: Chest pain, unspecified. rr5 Condition is Stable. Discharge Instructions: Nonspecific Chest Pain. Forms are Medication Reconciliation Form, Thank You Letter, Antibiotic Education, Prescription Opioid Use. Follow up: Private Physician; When: 1 - 2 days; Reason: Re-evaluation by your physician. Follow up: Ramana Voss; When: 2 - 3 days; Reason: Re-evaluation by your physician. gs
--- NOTE | 2019-03-23 07:53 | EKG ---
Test Date: 2019-03-23 Test Time: 03:48:59 [place] Oven Operator: RR MEASUREMENT RESULTS: Intervals: Rate: 96 NC: 190 QRSD: 96 QT: 388 QTc: 490 [place]: P: 46 NC: 190 QRS: 16 T: 35 INTERPRETIVE STATEMENTS: Normal sinus rhythm Prolonged QT Abnormal ECG Compared to ECG 03/09/2019 11:03:32 Prolonged QT interval now present Left ventricular hypertrophy no longer present Electronically Signed On 03-23-19 07:52:51 CDT by Romario Tyler
--- NOTE | 2019-03-23 09:35 | RAD REPORT ---
EXAM DESCRIPTION: [place] Single View03/23/2019 4:42 am CLINICAL HISTORY: Chest pain COMPARISON: August 2018 FINDINGS: The lungs appear clear of acute infiltrate. The heart is normal size IMPRESSION: No acute abnormalities displayed
== END 2019-03-23 06:56 | disposition home or self-care (01) ==
LOC: ER 03:33
DX: R07.9 Chest pain, unspecified (principal); I10 Essential (primary) hypertension; F17.210 Nicotine dependence, cigarettes, uncomplicated
CPT/HCPCS: 36415; 71045; 80048; 80076; 83690; 83735; 83880; 84484; 85025; 85610; 93005; 96365; 96375; 99285; J0360; J3010

== ENCOUNTER 2019-04-14 00:51 | Emergency (ER) | payer OTHER ==
--- OUTSIDE RECORDS SUMMARY | 2019-04-14 00:53 | XMS REPORT ---
[...] End Status Dosage System Date Date Telmisartan-HC [facility] [address]-23 Active not TZ defined Metoprolol [facility] [address]-81 Active not Succinate ER defined Lexapro [facility] [id number] 10 MG Orally Active 1 tablet Once a day Amlodipine NDC 0 Active not Besylate defined Ibuprofen NDC 0 Active not defined Results No Known Results Summary Purpose eClinicalWorks Submission
--- NOTE | 2019-04-14 01:39 | EDPHYS ---
Physician Documentation [facility] Name: Boone Sommer Age: 39 yrs Sex: Female : 1980 Arrival Date: 04/14/2019 Time: 00:53 Bed 5 Private MD: Braxton [place] ED Physician Ranjit Montenegro HPI: 04/14 01:31 This 39 yrs old Female presents to ER via Ambulatory with complaints of jr8 Swelling of Lower Extremity, Right side pain. 01:31 The patient presents with pain. The complaints affect the right inner thigh. Onset: The jr8 symptoms/episode began/occurred acutely, today. Modifying factors: The symptoms are alleviated by nothing. the symptoms are aggravated by movement. Associated signs and symptoms: The patient has no apparent associated signs or symptoms. Severity of symptoms: At their worst the symptoms were mild, in the emergency department the symptoms are unchanged. The patient has not experienced similar symptoms in the past. The patient has been recently seen by a physician:. Patient had recent vascular procedure to put in a renal stent for stenosis. Stated that procedure was on the 13th of this month. Has been doing very well. Stated that she did a lot yesterday. When she woke up this morning had small amount of new bruising and pain to inner thigh and lower abdomen near surgical site. 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 - Social history:: Smoking status: Patient uses tobacco products, smokes one pack cigarettes per day. - Ebola Screening: : No symptoms or risks identified at this time. ROS: 01:31 Eyes: Negative for injury, pain, redness, and discharge, ENT: Negative for injury, jr8 pain, and discharge, Neck: Negative for injury, pain, and swelling, Cardiovascular: Negative for chest pain, palpitations, and edema, Respiratory: Negative for shortness of breath, cough, wheezing, and pleuritic chest pain, Abdomen/GI: Negative for abdominal pain, nausea, vomiting, diarrhea, and constipation, Back: Negative for injury and pain, Skin: Negative for injury, rash, and discoloration, Neuro: Negative for headache, weakness, numbness, tingling, and seizure. 01:31 MS/extremity: Positive for ecchymosis, pain, tenderness, of the right inner thigh. Exam: :31 Eyes: Pupils equal round and reactive to light, extra-ocular motions intact. Lids and jr8 lashes normal. Conjunctiva and sclera are non-icteric and not injected. Cornea within normal limits. Periorbital areas with no swelling, redness, or edema. ENT: Nares patent. No nasal discharge, no septal abnormalities noted. Tympanic membranes are normal and external auditory canals are clear. Oropharynx with no redness, swelling, or masses, exudates, or evidence of obstruction, uvula midline. Mucous membranes moist. Neck: Trachea midline, no thyromegaly or masses palpated, and no cervical lymphadenopathy. Supple, full range of motion without nuchal rigidity, or vertebral point tenderness. No Meningismus. Cardiovascular: Regular rate and rhythm with a normal S1 and S2. No gallops, murmurs, or rubs. Normal PMI, no JVD. No pulse deficits. Respiratory: Lungs have equal breath sounds bilaterally, clear to auscultation and percussion. No rales, rhonchi or wheezes noted. No increased work of breathing, no retractions or nasal flaring. Abdomen/GI: Soft, non-tender, with normal bowel sounds. No distension or tympany. No guarding or rebound. No evidence of tenderness throughout. Back: No spinal tenderness. No costovertebral tenderness. Full range of motion. Skin: Warm, dry with normal turgor. Normal color with no rashes, no lesions, and no evidence of cellulitis. MS/ Extremity: Pulses equal, no cyanosis. Neurovascular intact. Full, normal range of motion. Patient has mild amount of bruising to right injuinal region near puncture site. Mild pain with tenderness to region and just above inguinal canal. No palpated hematoma felt. Rest of extremity normal Neuro: Awake and alert, GCS 15, oriented to person, place, time, and situation. Cranial nerves II-XII grossly intact. Motor strength 5/5 in all extremities. Sensory grossly intact. Cerebellar exam normal. Normal gait. Vital Signs: 01:10 BP 162 / 99; Pulse 81; Resp 18; Temp 97.6; Pulse Ox 100% on R/A; Weight 99.79 kg (R); ak1 Height 5 ft. 3 in. (160.02 cm) (R); Pain 2/10; 01:10 Body Mass Index 38.97 (99.79 kg, 160.02 cm) ak1 MDM: 01:11 Patient medically screened. jr8 01:34 Data reviewed: vital signs, nurses notes, and as a result, I will discharge patient. jr8 Data interpreted: Pulse oximetry: on room air is 100 %. Interpretation: normal. Counseling: I had a detailed discussion with the patient and/or guardian regarding: the historical points, exam findings, and any diagnostic results supporting the discharge/admit diagnosis, the need for outpatient follow up, Vascular Surgery . ED course: Discussed with patient that based on physical exam. No acute or concerning finding noted to suggest hemorrhage internally. Would closely watch herself for next couple of days and not to over do it with daily activities. Would not recommend imaging at this time. If worse, she was instructed to come immediately back. Patient good with this plan . Administered Medications: No medications were administered Disposition: 01:43 Co-signature as Attending Physician, Ranjit Montenegro MD. Disposition: 04/14/19 01:38 Discharged to Home. Impression: Encounter for surgical aftercare following surgery on the circulatory system. - Condition is Stable. - Discharge Instructions: Incision Care, Adult. - Medication Reconciliation Form, Thank You Letter, Antibiotic Education, Prescription Opioid Use form. - Follow up: Private Physician; When: 2 - 3 days; Reason: Recheck today's complaints, Continuance of care, Re-evaluation by your physician. - Problem is new. - Symptoms have improved. Signatures: Irineo Barnard PA PA jr8 Delma Becerril RN RN ak1 Thao Crane RN RN tl2 Ranjit Montenegro MD MD Corrections: (The following items were deleted from the chart) 01:48 01:38 04/14/2019 01:38 Discharged to Home. Impression: Encounter for surgical aftercare tl2 following surgery on the circulatory system. Condition is Stable. Forms are Medication Reconciliation Form, Thank You Letter, Antibiotic Education, Prescription Opioid Use. Follow up: Private Physician; When: 2 - 3 days; Reason: Recheck today's complaints, Continuance of care, Re-evaluation by your physician. Problem is new. Symptoms have improved. jr8
--- NOTE | 2019-04-14 01:39 | ER ---
Nurse's Notes [facility] Name: Boone Sommer Age: 39 yrs Sex: Female : 1980 Arrival Date: 04/14/2019 Time: 00:53 Bed 5 Private MD: Braxton Cuba Diagnosis: Encounter for surgical aftercare following surgery on the circulatory system Presentation: 04/14 01:10 Presenting complaint: Patient states: s/p left renal artery stent placement on 04/09/19, ak1 pt with increased pain, swelling and bruising that started tonight. procedure was done by Dr. Wheeler at [facility] on 04/09/19. Transition of care: patient was not received from another setting of care. Onset of symptoms was April 14, 2019. Risk Assessment: Do you want to hurt yourself or someone else? Patient reports no desire to harm self or others. Initial Sepsis Screen: Does the patient meet any 2 criteria? No. Patient's initial sepsis screen is negative. Does the patient have a suspected source of infection? No. Patient's initial sepsis screen is negative. Care prior to arrival: None. 01:10 Method Of Arrival: Ambulatory ak1 01:10 Acuity: [place] 3 ak1 Triage Assessment: 01:15 General: Appears uncomfortable, Behavior is calm, cooperative. Pain: Complains of pain ak1 in right inner thigh. 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 - Social history:: Smoking status: Patient uses tobacco products, smokes one pack cigarettes per day. - Ebola Screening: : No symptoms or risks identified at this time. Screenin:15 Abuse screen: Denies threats or abuse. Denies injuries from another. Nutritional ak1 screening: No deficits noted. Tuberculosis screening: No symptoms or risk factors identified. Fall Risk None identified. Assessment: 01:34 General: Appears in no apparent distress. Behavior is calm, cooperative, appropriate lp1 for age. Pain: Complains of pain in right femoral area and right inguinal area Pain currently is 5 out of 10 on a pain scale. Neuro: No deficits noted. Cardiovascular: No deficits noted. Respiratory: No deficits noted. GI: No deficits noted. : No signs and/or symptoms were reported regarding the genitourinary system. EENT: No signs and/or symptoms were reported regarding the EENT system. Derm: Bruising that is slight bruising to right groin/femoral area. Musculoskeletal: No deficits noted. 01:47 Reassessment: Patient appears in no apparent distress at this time. Patient and/or tl2 family updated on plan of care and expected duration. Pain level reassessed. Patient is alert, oriented x 3, equal unlabored respirations, skin warm/dry/pink. pt verbalized understanding of discharge instructions, need for follow up. Vital Signs: 01:10 BP 162 / 99; Pulse 81; Resp 18; Temp 97.6; Pulse Ox 100% on R/A; Weight 99.79 kg (R); ak1 Height 5 ft. 3 in. (160.02 cm) (R); Pain 2/10; 01:10 Body Mass Index 38.97 (99.79 kg, 160.02 cm) ak1 ED Course: 00:53 Patient arrived in ED. am2 00:54 Braxton Cuba MD is Private Physician. am2 01:11 [facility] jr8 01:11 Ranjit Montenegro MD is Attending Physician. jr8 01:11 Triage completed. ak1 01:15 Arm band placed on Patient placed in an exam room, on a stretcher, on pulse oximetry, ak1 Patient notified of wait time. 01:15 Patient has correct armband on for positive identification. Bed in low position. Call ak1 light in reach. Side rails up X 1. Adult w/ patient. Pulse ox on. NIBP on. 01:22 Adela Black, RN is Primary Nurse. lp1 01:36 No provider procedures requiring assistance completed. Patient did not have IV access lp1 during this emergency room visit. Administered Medications: No medications were administered Outcome: 01:38 Discharge ordered by . isaura 01:47 Discharged to home ambulatory, with family. tl2 01:47 Condition: stable 01:47 Discharge instructions given to patient, Instructed on discharge instructions, follow up and referral plans. Demonstrated understanding of instructions, follow-up care. 01:48 Patient left the ED. tl2 Signatures: Adela Black RN RN lp1 Irineo Barnard PA PA jr8 Delma Becerril RN RN ak1 Thao Crane RN RN tl2 Melissa Gerber
== END 2019-04-14 01:48 | disposition home or self-care (01) ==
LOC: ER 00:51
DX: Z48.812 Encounter for surgical aftercare following surgery on the circulatory system (principal); Z98.890 Other specified postprocedural states; M79.651 Pain in right thigh; I10 Essential (primary) hypertension; F17.210 Nicotine dependence, cigarettes, uncomplicated
CPT/HCPCS: 99283

== ENCOUNTER 2019-10-29 03:26 | Inpatient (IN) | payer OTHER ==
--- OUTSIDE RECORDS SUMMARY | 2019-10-29 03:29 | XMS REPORT ---
:1980 Author Organization eClinicalWorks Care Team Providers Name Role Phone Brad Chow Provider Role Unavailable Allergies, Adverse Reactions, Alerts Substance Reaction Event Type N.K.D.A. 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 Assessment Pain in joint of right knee M25.561 Active Assessment Patellar tendinitis of right knee M76.51 Active Problem Carpal tunnel syndrome of right G56.01 Active wrist Medications Medication Code Code Instructions Start End Status Dosage System Date Date Escitalopram [facility] [address]-31 Active not Oxalate defined Clopidogrel [facility] [address]-07 Active not Bisulfate defined Carvedilol [facility] [address]-61 Active not defined Clonidine HCl [facility] [id number] Active not defined Aspirin 81 [facility] [address] Active not defined Amlodipine ND 0 Active not Besylate defined Atorvastatin [facility] [address]-55 Active not Calcium defined Furosemide [facility] [address]-91 Active not defined Results No Known Results Summary Purpose eClinicalWorks Submission
[2019-10-29] MEDS ORDERED: ONDANSETRON 4 MG/2 ML VIAL ONE (03:54)
[2019-10-29] MEDS ORDERED: METOPROLOL TARTRATE 5 MG/5 ML INJ IV ONE (03:54)
[2019-10-29] MEDS ORDERED: LEVALBUTEROL 1.25 MG/3 ML NEB ONE ×2 (03:54→05:53)
[2019-10-29 04:10] LABS: Arterial Blood Carboxyhemoglob 2.8 % (0-1.5); Blood Gas Oxyhemoglobin 93.6 % (94-97); Blood O2 Saturation 97.1 % (92-98.5)
[2019-10-29 04:22] LABS: Absolute Lymphocytes (CBC) 4.2 K/uL (0.7-4.9); Basophils % 0.9 % (0-1.3); Hematocrit 45.8 % (36.0-45.0); Lymphocytes % 34.3 % (15.3-44.8); MPV 9.9 fL (7.6-11.3); RBC Red Blood Cell Count 5.38 M/uL (3.86-4.86)
[2019-10-29 04:23] LABS: Protime INR 0.85
[2019-10-29 04:36] LABS: ALT/SGPT 43 U/L (12-78); AST/SGOT 22 U/L (15-37); Albumin 3.7 g/dL (3.4-5.0); Alkaline Phosphatase 107 U/L (45-117); BUN Blood Urea Nitrogen 13 mg/dL (7-18); Bicarbonate 23 mmol/L (21-32); Bilirubin Direct < 0.1 mg/dL (0-0.2); Bilirubin Total 0.3 mg/dL (0.2-1.0); Glucose Level 103 mg/dL (74-106); Magnesium 1.9 mg/dL (1.8-2.4); NT PRO-BNP 3713 pg/mL (<125); Potassium 3.5 mmol/L (3.5-5.1); Protein, Total 6.9 g/dL (6.4-8.2); Sodium Level 139 mmol/L (136-145); Troponin (Emerg Dept Use Only) < 0.02 ng/mL (0.0-0.045)
[2019-10-29] MEDS ORDERED: METHYLPREDNISOLONE 125 MG INJ ONE (05:52)
[2019-10-29] MEDS ORDERED: cloNIDine HCL 0.1 MG TAB ONE (06:30)
--- NOTE | 2019-10-29 07:22 | ER ---
Nurse's Notes [facility] Name: Boone Sommer Age: 39 yrs Sex: Female : 1980 Arrival Date: 10/29/2019 Time: 03:27 Bed 13 Private MD: Braxton Cuba Diagnosis: Acute dyspnea. Severe hypertension. Cardiomegaly Presentation: 10/29 03:27 Presenting complaint: Patient states: that approx 1 hr ago she started coughing and fc then became short of breath. Was having chest pain on and off that radiated to her back. Also while having this pain pt was having nausea and vomiting. Transition of care: patient was not received from another setting of care. Onset of symptoms was October 29, 2019 at 02:30. Risk Assessment: Do you want to hurt yourself or someone else? Patient reports no desire to harm self or others. Risk Assessment: Do you want to hurt yourself or someone else?. Initial Sepsis Screen: Does the patient meet any 2 criteria? RR > 20 per min. HR > 90 bpm. Yes Does the patient have a suspected source of infection? No. Patient's initial sepsis screen is negative. Care prior to arrival: None. 03:27 Method Of Arrival: Ambulatory fc 03:27 Acuity: [place] 2 fc Triage Assessment: 03:27 General: Appears distressed, uncomfortable, obese, well groomed, Behavior is fc cooperative, appropriate for age, anxious, crying. Pain: Complains of pain in chest Pain radiates to back Pain currently is 0 out of 10 on a pain scale. at worst was 7 out of 10 on a pain scale. Quality of pain is described as aching, pressure, radiating, Pain began 2 hours ago. Is intermittent. EENT: No deficits noted. Neuro: Level of Consciousness is awake, alert, obeys commands, Oriented to person, place, time, situation, Appropriate for age. Cardiovascular: Reports chest pain, nausea, shortness of breath, vomiting, Heart tones S1 S2 present Capillary refill < 3 seconds Pulses are all present. Rhythm is sinus tachycardia Chest pain is described as severe, quality is pressure, is located in substernal area radiates back began 2 hours prior to arrival episodes are intermittent. Respiratory: Reports shortness of breath cough that is non-productive, Airway is patent Respiratory effort is labored, Respiratory pattern is tachypnea Breath sounds with wheezes bilaterally. Onset: The symptoms/episode began/occurred just prior to arrival, the patient has severe shortness of breath. GI: Abdomen is round non-distended, Bowel sounds present X 4 quads. Reports nausea, vomiting. : No deficits noted. Derm: Skin is intact, Skin is moist, Skin is pink, Skin temperature is warm. Musculoskeletal: Circulation, motion, and sensation intact. Capillary refill < 3 seconds, Range of motion: intact in all extremities. 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 fc Historical: - Allergies: 03:52 No Known Allergies; fc - Home Meds: 03:52 atorvastatin 40 mg oral tab 1 tab nightly [Active]; aspirin 81 mg Oral chew 1 tab once fc daily [Active]; escitalopram oxalate 10 mg oral tab 1 tab once daily [Active]; Lasix 20 mg oral tab 1 tab once daily [Active]; Plavix 75 mg Oral tab 1 tab once daily [Active]; carvedilol 25 mg oral tab 1 tab 2 times per day [Active]; clonidine HCl 0.1 mg oral tab 1 tab 2 times per day [Active]; amlodipine 10 mg oral tab 1 tab once daily [Active]; - PMHx: 03:52 "small right kidney"; Hypertension; Kidney disease stage 2; High Cholesterol; fc Depression; CAD; - PSHx: 03:52 left renal artery stent with star closure placed; Hysterectomy; bartolins gland surgery;fc - Immunization history:: Last tetanus immunization: unknown, Flu vaccine is not up to date. - Social history:: Smoking status: Patient uses tobacco products, smokes one pack cigarettes per day. Patient uses alcohol, occasionally. Patient/guardian denies using street drugs. - Ebola Screening: : Patient negative for fever greater than or equal to 101.5 degrees Fahrenheit, and additional compatible Ebola Virus Disease symptoms Patient denies exposure to infectious person Patient denies travel to an Ebola-affected area in the 21 days before illness onset. Screenin:27 Abuse screen: Denies threats or abuse. Nutritional screening: No deficits noted. fc Tuberculosis screening: No symptoms or risk factors identified. Fall Risk None identified. Assessment: 03:35 Reassessment: Dr Amador at bedside to examine pt. 04:00 Reassessment: No changes from previously documented assessment. Patient and/or family fc updated on plan of care and expected duration. Pain level reassessed. Patient is alert, oriented x 3, equal unlabored respirations, skin warm/dry/pink. see triage assessment. 04:27 Reassessment: Patient and/or family updated on plan of care and expected duration. Pain ea level reassessed. Pt reports symptoms have improved. States "I can breathe now". 06:00 Reassessment: No changes from previously documented assessment. Patient and/or family fc updated on plan of care and expected duration. Pain level reassessed. Patient is alert, oriented x 3, equal unlabored respirations, skin warm/dry/pink. Pt states that she is feeling much better. 07:10 Reassessment: Patient appears in no apparent distress at this time. No changes from ch previously documented assessment. Patient and/or family updated on plan of care and expected duration. Pain level reassessed. Patient is alert, oriented x 3, equal unlabored respirations, skin warm/dry/pink. General: Appears in no apparent distress. comfortable. Cardiovascular: Reports shortness of breath, Heart tones S1 S2 present Capillary refill < 3 seconds in bilateral fingers toes Clubbing of nail beds is absent Pulses are all present. Rhythm is sinus tachycardia. Respiratory: Airway is patent Trachea midline Respiratory effort is even, unlabored, Respiratory pattern is regular, Breath sounds with wheezes bilaterally. GI: No signs and/or symptoms were reported involving the gastrointestinal system. Derm: Skin is pink, warm \\T\\ dry. Skin temperature is warm. Musculoskeletal: No signs and/or symptoms reported regarding the musculoskeletal system. 08:08 Reassessment: Patient appears in no apparent distress at this time. Patient is alert, ch oriented x 3, equal unlabored respirations, skin warm/dry/pink. pt states she wants to smoke. pt given nicorette patch. pt states she does not want to be admitted. awaiting pt admitting doctor to see here. 09:00 Reassessment: Patient appears in no apparent distress at this time. Patient and/or ch family updated on plan of care and expected duration. Pain level reassessed. Patient is alert, oriented x 3, equal unlabored respirations, skin warm/dry/pink. Patient states feeling better. Patient states symptoms have improved. 09:51 Reassessment: Patient appears in no apparent distress at this time. No changes from previously documented assessment. Patient and/or family updated on plan of care and expected duration. Pain level reassessed. pt is sleeping. 12:14 Reassessment: Patient appears in no apparent distress at this time. report called, Registration contacted. Vital Signs: 03:27 BP 168 / 115; Pulse 149; Resp 32; Temp 98.9(O); Pulse Ox 99% on R/A; Weight 106.59 kg fc (R); Height 5 ft. 3 in. (160.02 cm) (R); Pain 0/10; 04:27 BP 126 / 97; Pulse 102; Resp 20; Pulse Ox 97% ; ea 05:00 BP 161 / 115; Pulse 97; Resp 20; Pulse Ox 97% on R/A; fc 05:30 BP 162 / 120; Pulse 94; Resp 20; Pulse Ox 98% on R/A; fc 06:00 BP 181 / 131; Pulse 97; Resp 18; Pulse Ox 98% on R/A; Pain 0/10; fc 07:15 BP 155 / 99; Pulse 105; Resp 19; Temp 98.2; Pulse Ox 99% on R/A; ch 08:09 BP 141 / 87; Pulse 100; Resp 21; Pulse Ox 95% on R/A; ch 09:51 BP 135 / 84; Pulse 106; Resp 22; Pulse Ox 95% on R/A; ch 12:14 BP 131 / 70; Pulse 104; Resp 15; Temp 98.2; Pulse Ox 95% on R/A; Pain 0/10; ch 03:27 Body Mass Index 41.63 (106.59 kg, 160.02 cm) ED Course: 03:27 Patient arrived in ED. es 03:27 Braxton Cuba MD is Private Physician. es 03:27 Arm band placed on Patient placed in an exam room, on a stretcher. fc 03:27 Patient has correct armband on for positive identification. Placed in gown. Bed in low fc position. Call light in reach. Side rails up X 1. threat monitoring analyst on. Pulse ox on. NIBP on. 03:27 No provider procedures requiring assistance completed. fc 03:31 Riki Amador MD is Attending Physician. pkl 03:42 Triage completed. fc 04:17 XRAY Chest (1 view) In Process Unspecified. EDMS 06:08 CT Chest For PE Angio In Process Unspecified. EDMS 07:05 Genna Paredes, RN is Primary Nurse. ch 07:19 Jak Morales MD is Hospitalizing Provider. pkl 09:39 Ultrasound completed. hr 12:40 Patient admitted, IV remains in place. ch Administered Medications: 03:55 Drug: Zofran 4 mg Route: IVP; Site: right antecubital; ea 04:30 Follow up: Response: No adverse reaction ea 08:06 Follow up: Response: No adverse reaction ch 04:07 Drug: Xopenex (3) 1.25 mg Route: Inhalation; ea 04:12 Drug: Lopressor 5 mg Route: IVP; Site: right antecubital; ea 05:00 Follow up: Response: No adverse reaction ea 08:06 Follow up: Response: No adverse reaction; Blood pressure is lowered ch 05:57 Drug: SOLU-Medrol 125 mg Route: IVP; Site: right antecubital; jd3 08:06 Follow up: Response: No adverse reaction ch 05:57 Drug: Xopenex 1.25 mg Route: Inhalation; jd3 08:05 Follow up: Response: No adverse reaction ch 06:28 Drug: cloNIDine 0.2 mg Route: PO; bb 08:05 Follow up: Response: No adverse reaction; Blood pressure is lowered ch 07:50 Drug: Nicoderm CQ 21 mg/24 hr 1 patches {Note: on L arm.} Route: Transdermal; Site: ch affected area; 08:05 Follow up: Response: No adverse reaction ch Outcome: 07:21 Decision to Hospitalize by Provider. pkl 12:40 Admitted to Med/surg accompanied by nurse, via wheelchair, with chart. ch 12:40 Condition: stable 12:40 Instructed on the need for admit. 12:43 Patient left the ED. Signatures: Dispatcher [employer] EDMS Genna Paredes, RN Riki Mariano ch, MD MD pkl Karina Mallory Haley hr Chretien, Felicia RN RN Hillary Hawkins RN RN Maren Patten RN RN ea Davies, Jonathon, RN RN jd3
--- NOTE | 2019-10-29 07:22 | EDPHYS ---
Physician Documentation [facility] Name: Boone Sommer Age: 39 yrs Sex: Female : 1980 Arrival Date: 10/29/2019 Time: 03:27 Bed 13 Private MD: Braxton Cuba ED Physician Riki Amador HPI: 10/29 03:52 This 39 yrs old Female presents to ER via Ambulatory with complaints of pkl Breathing Difficulty. 03:52 The patient has shortness of breath at rest. Onset: The symptoms/episode began/occurred pkl just prior to arrival, 1 hour(s) ago. Associated signs and symptoms: Pertinent positives: epigastric pain radiating to back off and on for 3 to 4 days. H/O renal artery stent placement 6 months ago. 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 N/A - Hysterectomy fc Historical: - Allergies: 03:52 No Known Allergies; fc - Home Meds: 03:52 atorvastatin 40 mg oral tab 1 tab nightly [Active]; aspirin 81 mg Oral chew 1 tab once fc daily [Active]; escitalopram oxalate 10 mg oral tab 1 tab once daily [Active]; Lasix 20 mg oral tab 1 tab once daily [Active]; Plavix 75 mg Oral tab 1 tab once daily [Active]; carvedilol 25 mg oral tab 1 tab 2 times per day [Active]; clonidine HCl 0.1 mg oral tab 1 tab 2 times per day [Active]; amlodipine 10 mg oral tab 1 tab once daily [Active]; - PMHx: 03:52 "small right kidney"; Hypertension; Kidney disease stage 2; High Cholesterol; fc Depression; CAD; - PSHx: 03:52 left renal artery stent with star closure placed; Hysterectomy; bartolins gland surgery;fc - Immunization history:: Last tetanus immunization: unknown, Flu vaccine is not up to date. - Social history:: Smoking status: Patient uses tobacco products, smokes one pack cigarettes per day. Patient uses alcohol, occasionally. Patient/guardian denies using street drugs. - Ebola Screening: : Patient negative for fever greater than or equal to 101.5 degrees Fahrenheit, and additional compatible Ebola Virus Disease symptoms Patient denies exposure to infectious person Patient denies travel to an Ebola-affected area in the 21 days before illness onset. ROS: 03:52 Eyes: Negative for injury, pain, redness, and discharge, ENT: Negative for injury, pkl pain, and discharge, Neck: Negative for injury, pain, and swelling, Cardiovascular: Negative for chest pain, palpitations, and edema. 03:52 Respiratory: Positive for shortness of breath, wheezing. 03:52 Abdomen/GI: Negative for abdominal pain, nausea, vomiting, and diarrhea. 03:52 Back: Negative for acute changes. 03:52 : Negative for urinary symptoms. 03:52 MS/extremity: Negative for acute changes. 03:52 Skin: Negative for rash. 03:52 Neuro: Negative for altered mental status, loss of consciousness. Exam: 03:52 Head/Face: Normocephalic, atraumatic. Eyes: Pupils equal round and reactive to light, pkl extra-ocular motions intact. Lids and lashes normal. Conjunctiva and sclera are non-icteric and not injected. Cornea within normal limits. Periorbital areas with no swelling, redness, or edema. ENT: Nares patent. No nasal discharge, no septal abnormalities noted. Tympanic membranes are normal and external auditory canals are clear. Oropharynx with no redness, swelling, or masses, exudates, or evidence of obstruction, uvula midline. Mucous membranes moist. Neck: Trachea midline, no thyromegaly or masses palpated, and no cervical lymphadenopathy. Supple, full range of motion without nuchal rigidity, or vertebral point tenderness. No Meningismus. Chest/axilla: Normal chest wall appearance and motion. Nontender with no deformity. No lesions are appreciated. Cardiovascular: Regular rate and rhythm with a normal S1 and S2. No gallops, murmurs, or rubs. Normal PMI, no JVD. No pulse deficits. 03:52 Respiratory: the patient does not display signs of respiratory distress, Respirations: labored breathing, that is mild, Breath sounds: bronchial sounds, that are mild, are scattered, rhonchi, that are mild, are scattered. 03:52 Abdomen/GI: Bowel sounds: normal, Palpation: abdomen is soft and non-tender, in all quadrants. 03:52 Back: Exam negative for acute changes. 03:52 : Exam negative for acute changes. 03:52 Musculoskeletal/extremity: Exam is negative for acute changes. 03:52 Skin: Exam negative for rash. 03:52 Neuro: Orientation: is normal, Mentation: is normal, Cranial nerves: grossly normal, Motor: is normal. Vital Signs: 03:27 BP 168 / 115; Pulse 149; Resp 32; Temp 98.9(O); Pulse Ox 99% on R/A; Weight 106.59 kg fc (R); Height 5 ft. 3 in. (160.02 cm) (R); Pain 0/10; 04:27 BP 126 / 97; Pulse 102; Resp 20; Pulse Ox 97% ; ea 05:00 BP 161 / 115; Pulse 97; Resp 20; Pulse Ox 97% on R/A; fc 05:30 BP 162 / 120; Pulse 94; Resp 20; Pulse Ox 98% on R/A; fc 06:00 BP 181 / 131; Pulse 97; Resp 18; Pulse Ox 98% on R/A; Pain 0/10; fc 07:15 BP 155 / 99; Pulse 105; Resp 19; Temp 98.2; Pulse Ox 99% on R/A; ch 08:09 BP 141 / 87; Pulse 100; Resp 21; Pulse Ox 95% on R/A; ch 09:51 BP 135 / 84; Pulse 106; Resp 22; Pulse Ox 95% on R/A; ch 12:14 BP 131 / 70; Pulse 104; Resp 15; Temp 98.2; Pulse Ox 95% on R/A; Pain 0/10; ch 03:27 Body Mass Index 41.63 (106.59 kg, 160.02 cm) fc MDM: 03:31 Patient medically screened. pkl 07:18 Data reviewed: vital signs, nurses notes, lab test result(s), EKG, radiologic studies, pkl CT scan, plain films. ED course: Talked to Dr. Morales. For observation. 10/29 03:44 Order name: Basic Metabolic Panel; Complete Time: 04:38 10/29 03:44 Order name: CBC with Diff; Complete Time: 04:37 10/29 03:44 Order name: LFT's; Complete Time: 04:38 10/29 03:44 Order name: Magnesium; Complete Time: 04:38 10/29 03:44 Order name: NT PRO-BNP; Complete Time: 04:38 10/29 03:44 Order name: PT-INR; Complete Time: 04:37 10/29 03:44 Order name: Troponin (emerg Dept Use Only); Complete Time: 04:38 ea 10/29 03:47 Order name: ABG; Complete Time: 04:17 pkl 10/29 07:35 Order name: Basic Metabolic Panel EDMS 10/29 07:35 Order name: Basic Metabolic Panel EDMS 10/29 07:35 Order name: CBC with Automated Diff EDMS 10/29 07:35 Order name: CBC with Automated Diff EDMS 10/29 09:06 Order name: Troponin (emerg Dept Use Only) ch 10/29 09:41 Order name: Amylase Level EDMS 10/29 03:44 Order name: XRAY Chest (1 view) ea 10/29 03:44 Order name: EKG; Complete Time: 03:46 ea 10/29 04:40 Order name: CT Chest For PE Angio pkl 10/29 07:35 Order name: Regular EDMS 10/29 08:54 Order name: Diet Regular; Complete Time: 08:54 ch 10/29 09:41 Order name: Lipase EDMS 10/29 09:41 Order name: US EDMS 10/29 09:47 Order name: Troponin (Emerg Dept Use Only) EDMS 10/29 11:31 Order name: Troponin I ch 10/29 03:44 Order name: Cardiac monitoring; Complete Time: 03:53 ea 10/29 03:44 Order name: EKG - Nurse/Tech; Complete Time: 03:53 ea 10/29 03:44 Order name: IV Saline Lock; Complete Time: 03:53 ea 10/29 03:44 Order name: Labs collected and sent; Complete Time: 03:53 ea 10/29 03:44 Order name: O2 Per Protocol; Complete Time: 03:54 ea 10/29 03:44 Order name: O2 Sat Monitoring; Complete Time: 03:54 ea Administered Medications: 03:55 Drug: Zofran 4 mg Route: IVP; Site: right antecubital; ea 04:30 Follow up: Response: No adverse reaction ea 08:06 Follow up: Response: No adverse reaction ch 04:07 Drug: Xopenex (3) 1.25 mg Route: Inhalation; ea 04:12 Drug: Lopressor 5 mg Route: IVP; Site: right antecubital; ea 05:00 Follow up: Response: No adverse reaction ea 08:06 Follow up: Response: No adverse reaction; Blood pressure is lowered ch 05:57 Drug: SOLU-Medrol 125 mg Route: IVP; Site: right antecubital; jd3 08:06 Follow up: Response: No adverse reaction ch 05:57 Drug: Xopenex 1.25 mg Route: Inhalation; jd3 08:05 Follow up: Response: No adverse reaction ch 06:28 Drug: cloNIDine 0.2 mg Route: PO; bb 08:05 Follow up: Response: No adverse reaction; Blood pressure is lowered ch 07:50 Drug: Nicoderm CQ 21 mg/24 hr 1 patches {Note: on L arm.} Route: Transdermal; Site: ch affected area; 08:05 Follow up: Response: No adverse reaction ch Disposition: 10/29/19 07:21 Hospitalization ordered by Jak Morales for Observation. Preliminary diagnosis is Acute dyspnea. Severe hypertension. Cardiomegaly. - Bed requested for Telemetry/MedSurg (observation). - Status is Observation. ch - Condition is Stable. - Problem is new. - Symptoms have improved. UTI on Admission? No Signatures: Dispatcher [employer] EDMS Genna Paredes RN RN Sarah Elliott RN RN Riki Delaney MD MD pkl Patricia Day RN Hillary Aguilar RN RN Maren Patten, RN Denzel Hernandez ea, RN RN jd3 Corrections: (The following items were deleted from the chart) 11:52 07:21 Hospitalization Ordered by Jak Morales MD for Observation. Preliminary diagnosis dw is Acute dyspnea. Severe hypertension. Cardiomegaly. Bed requested for Telemetry/MedSurg (observation). Status is Observation. Condition is Stable. Problem is new. Symptoms have improved. UTI on Admission? No. pkl 12:43 11:52 10/29/2019 07:21 Hospitalization Ordered by Jka Morales MD for Observation. Preliminary diagnosis is Acute dyspnea. Severe hypertension. Cardiomegaly. Bed requested for Telemetry/MedSurg (observation). Status is Observation. Condition is Stable. Problem is new. Symptoms have improved. UTI on Admission? No. dw
[2019-10-29] MEDS ORDERED: NICOTINE 21 MG/PAT TD ONE (07:50)
[2019-10-29] MEDS ORDERED: ALBUTEROL 2.5 MG/3 ML NEB SOL NEB SCH (08:00)
[2019-10-29] MEDS ORDERED: NA CHLORIDE 0.9% 1,000 ML IV SCH (08:00)
--- NOTE | 2019-10-29 09:34 | RAD REPORT ---
EXAM DESCRIPTION: RAD - Chest Single View - 10/29/2019 4:18 am CLINICAL HISTORY: Chest pain, cough COMPARISON: February 2019 TECHNIQUE: AP portable chest image was obtained 0415 hours . FINDINGS: No peripheral mass consolidation. Interstitial pattern is prominent. This is not substanti ally different from the comparison. Interstitial edema or interstitial infiltrate would still be poss ible. Trachea is midline. Heart and vasculature are normal. No measurable pleural effusion and no pneumotho rax. No acute bony abnormality seen. No acute aortic findings suspected. IMPRESSION: Prominent for age interstitial pattern. This is not substantially different from compari son but could indicate an interstitial edema or infiltrate. No peripheral mass or consolidation.
--- NOTE | 2019-10-29 09:40 | RAD REPORT ---
EXAM DESCRIPTION: US - Abdomen Exam Complete - 10/29/2019 9:03 am CLINICAL HISTORY: PAIN IN ABDOMEN COMPARISON: Renal Ultrasound-Complete dated 04/15/2019; Stone Protocol dated 12/21/2018 FINDINGS: Gallbladder is contracted. Patient was not properly fasting for the examination. A 9 valente meter gallstone is present near the neck of the gallbladder. Additional small punctate stones could b e present an obscured by the contracted state. Contraction also accentuates wall thickness. Pathologi c gallbladder wall thickening is not suspected. No pericholecystic fluid. Common bile duct is normal with no common duct stone identified. The liver and spleen show no suspicious findings. The pancreas is too obscured by bowel gas for adequate assessment. Right kidney is much smaller than the left. Similar finding was seen in November 2018. No hydronephro sis of either kidney. Upper pole of the right kidney was not optimally visualized. There is questiona ble 2 centimeter complex cyst or fatty mass present. It has been Aorta and IVC show no significant finding. No ascites or bulky lymphadenopathy. IMPRESSION: At least 1 9 millimeter gallstone is present in the neck of the gallbladder. Additional punctate stones may be obscured. Gallbladder is contracted due to nonfasting state. No pathological wall thickening or pericholecystic fluid. No duct stone or biliary tree dilatation. Pancreas is too obscured by bowel for assessment. Small right kidney shows questionable upper pole co mplex cyst or fatty mass. As clinical findings warrant, contrast-enhanced CT abdomen imaging could be performed to evaluate the pancreas and better evaluate the upper pole of the right kidney.
[2019-10-29 09:41] LABS: Amylase Level 55 U/L (25-115); Lipase 118 U/L (73-393)
--- NOTE | 2019-10-29 10:30 | RAD REPORT ---
EXAM DESCRIPTION: CT - Chest For Pe Angio - 10/29/2019 6:06 am CLINICAL HISTORY: DYSPNEA TECHNIQUE: Axial computed tomographic images of the chest with intravenous contrast. This CT exam was performed using one or more of the following dose reduction techniques: automated exposure cont rol, adjustment of the mA and/or kV according to patient size, and/or use of iterative reconstruction technique. COMPARISON: No relevant prior studies available. FINDINGS: Limitations: None. Pulmonary arteries: Unremarkable. No pulmonary embolism. Aorta: No acute findings. No thoracic aortic aneurysm. Lungs: Diffuse septal thickening noted. Scattered foci of nonspecific groundglass opacity iden tified. No mass. No consolidation. Pleural space: Very small layering left pleural effusion. No pneumothorax. Heart: Cardiomegaly. No significant pericardial effusion. No evidence of RV dysfunction. Bones/joints: No acute fracture. No dislocation. Soft tissues: Unremarkable. Lymph nodes: Unremarkable. No enlarged lymph nodes. IMPRESSION: 1. Abnormalities present most concerning for CHF. 2. No pulmonary embolus visualized. Electronically signed by: Magnolia Gunter MD 10/29/2019 6:23 AM CALENDER OPERATOR HELPER Due to temporary technical issues with the PACS/Fluency reporting system, reports are being signed by the in house radiologist as a courtesy to ensure prompt reporting. The interpreting radiologist is f ully responsible for the content of the report.
--- NOTE | 2019-10-29 12:42 | P.HP ---
Certification for Inpatient Patient admitted to: Inpatient With expected LOS: >2 Midnights Practitioner: I am a practitioner with admitting privileges, knowledge of patient current condition, hospital course, and medical plan of care. Services: Services provided to patient in accordance with Admission requirements found in Title 42 Section 412.3 of the Code of Federal Regulations Patient History Date of Service: 10/29/19 Reason for admission: DYSPNEA, COUGH, EPIG PAIN, TO BACK, NAUSEA, VOMITING. History of Present Illness: MS. SANZ IS 39 YEARS OLD WITH CAD, RENAL ARTERY STENOSIS, HTN WHO IS SMOKER AND CAME WITH DYSPNEA, COUGH, TACHYCARDIA, EPIG PAIN TO BACK WITH NAUSEA, VOMITING FOR 3 DAYS. I SAW HER IN ER AND ASKED DR. MUHAMMAD TO SEE HER. I ALSO ORDERED SONOGRAM TO CHECK ON GB. Allergies No Known Allergies Allergy (Verified 09/03/18 19:43) Home medications list reviewed: Yes Home Medications: Amlodipine Besylate 10 mg PO DAILY 09/03/18 Escitalopram Oxalate [Lexapro] 10 mg PO DAILY 09/03/18 Metoprolol Succinate [Toprol Xl] 100 mg PO DAILY 09/03/18 Telmisartan/Hydrochlorothiazid [Telmisartan-Hctz 80-25 mg Tab] 1 tab PO DAILY - Past Medical/Surgical History Has patient received pneumonia vaccine in the past: No Diabetic: No -: hypertensive -: kidney disease -: depression -: hyperlipidemia -: hysterectemoy -: cyst removal on vaginal area - Family History Family History: Reviewed- Non-Contributory - Social History Smoking Status: Current every day smoker Alcohol use: Yes CD- Drugs: No Caffeine use: Yes Place of Residence: Home Review of Systems 10-point ROS is otherwise unremarkable General: Weakness, Malaise Respiratory: Cough, Shortness of Breath Gastrointestinal: Nausea, Vomiting Physical Examination - Physical Exam General: Alert, Mild distress, Moderate distress HEENT: Atraumatic, PERRLA, Mucous membr. moist/pink, EOMI, Sclerae nonicteric Neck: Supple, 2+ carotid pulse no bruit, No LAD, Without JVD or thyroid abnormality Respiratory: Diminished Cardiovascular: Regular rate/rhythm, Normal S1 S2 Gastrointestinal: Normal bowel sounds, No tenderness Musculoskeletal: No tenderness Integumentary: No rashes Neurological: Normal gait, Normal speech, Normal strength at 5/5 x4 extr, Normal tone, Normal affect Lymphatics: No axilla or inguinal lymphadenopathy - Studies Laboratory Data (last 24 hrs) 10/29/19 03:50: PT 10.1, INR 0.85 10/29/19 03:50: WBC 12.4 H, Hgb 15.4 H, Hct 45.8 H, Plt Count 318 10/29/19 03:50: Sodium 139, Potassium 3.5, BUN 13, Creatinine 0.96, Glucose 103 , Magnesium 1.9, Total Bilirubin 0.3, AST 22, ALT 43, Alkaline Phosphatase 107 Assessment and Plan - Problems (Diagnosis) (1) Bronchitis Current Visit: Yes Status: Acute Plan: ZITHROMAX IV. NEBS XOPENEX NO NEED OF STERIODS FOR NOW. (2) Tachycardia Current Visit: Yes Status: Acute Plan: RELATED TO ACUTE RESP ILLNESS. NO SIGNS OF ACUTE CARDIAC ISSUES. SHE IS SMOKER AND IS TRYING TO QUIT. (3) Epigastric pain Current Visit: Yes Status: Acute Plan: SONOGRAM SHOWS 19 MM STONE AT NECK OF GB. THIS MAY EXPLAIN, PAIN, LEUKOCYTOSIS, NAUSEA, VOMITING ETC. I CALLED DR. CAMERON AND HE WILL SEE PT. (4) Nausea & vomiting Current Visit: Yes Status: Acute Plan: ABOVE. - Advance Directives Does patient have a Living Will: No Does patient have a Durable POA for Healthcare: No
--- NOTE | 2019-10-29 12:55 | CON ---
Date of Consultation: 10/29/2019 Reason For Consultation: Shortness of breath. History Of Present Illness: Ms. Sommer is a 39-year-old woman. She is known to Dr. Shashank guidry from my office for a few years. She has had a rather complicated history for her age including h ypertension, dyslipidemia, renal insufficiency. She has had a left renal artery stent as well as cor onary artery stent in the past. She came in with substernal chest discomfort that she described more as an inability to breathe. She also had midepigastric nausea and vomiting approximately 2 days ago . Denied any fever or chills. She denied any diarrhea or constipation. She denied any cough. You ed any chest pain. Her midepigastric pain went through to the back. Troponin was negative. Chest x -ray showed possible interstitial edema. Her BNP was slightly elevated. She was very hypertensive a t 170/130 when she came in. This has improved to 140/80 after clonidine. Past Medical History: Included in the HPI. Allergies: NONE. Review of Systems: Negative. Social History: Negative. Family History: Noncontributory. Medications: At home include Norvasc, Lexapro, metoprolol, and telmisartan with hydrochlorothiazide. When she saw Dr. Voss in April, she was placed on clonidine, but she quit taking it because it mad e her feel very tired, sleepy, and a dry mouth. Her present medications include Xopenex, erythromyci n, Pepcid, and carvedilol. Physical Examination: Vital Signs: Now are stable. She is afebrile. Her heart rate is sinus at 90. HEENT: Negative. Neck: Supple with no bruit. Chest: Clear. Cardiac: Revealed a regular rhythm and rate, S4 gallops. No murmurs or rubs. Abdomen: Obese, but benign. Extremities: Revealed no clubbing, cyanosis, or edema. Diagnostic Data: Her EKG showed normal sinus rhythm, slightly prolonged QT interval. White count wa s 12,000. Her pCO2 was 27 and normal PO2. BNP was 3713. Chest x-ray showed possible mild interstit ial edema. Abdominal ultrasound showed what seems to be gallstones. Impression And Plan: Shortness of breath, most likely secondary to reactive airway disease and hyper tension. I do not think we are dealing with congestive heart failure, although her BNP is elevated. She improved dramatically after being given steroids and inhalers. This goes more with the pulmonar y issues and a cardiac issue. Nevertheless, she has obviously had heart problems including coronary artery disease status post stent and we will continue her present regimen otherwise for now including the carvedilol. I agree with Magdaleno. I agree with antibiotics treatment as well as Xopenex. Her h ypertension is better controlled. She is intolerant to clonidine. She is on Norvasc, metoprolol, te lmisartan, hydrochlorothiazide at home and we will continue that whenever it is okay with Dr. Morales. I do not think we need to do any extensive cardiac workup at this point, although an echocardiogram has been ordered. We will see what that shows. Her dyslipidemia is well controlled. She has renal insufficiency that is well controlled and she follows Dr. Espinoza. She is status post left renal ar catracho stent. She has also issues with depression and obesity that we will follow along. I am concern ed that some of her nausea and vomiting and pain in the back may be related to her gallbladder. I wi ll discuss that further with Dr. Morales. If there is any surgical procedure required in that regard, she is definitely cleared from a cardiovascular standpoint. ELIZABETH/KIA Voice ID: [id number] Report ID: [id number]
[2019-10-29] MEDS: LEVALBUTEROL 0.63 MG/3 ML NEB NEB SCH ×2 (13:53→20:30)
[2019-10-29] MEDS: POTASSIUM CL SA 10 MEQ TAB PO SCH ×2 (14:45→19:53)
[2019-10-29] MEDS: FAMOTIDINE 20 MG/2 ML VIAL IV SCH ×2 (14:46→19:54)
[2019-10-29] MEDS: FUROSEMIDE 20 MG/ 2ML VIAL IV SCH (14:46)
[2019-10-29] MEDS: AZITHROMYCIN IV 500 MG in NA CHLORIDE 0.9% 250 ML IVPB SCH (14:51)
[2019-10-29] MEDS ORDERED: CEFOXITIN SODIUM 1 GM/VIAL IVPB SCH (15:00)
[2019-10-29] MEDS ORDERED: CEFOXITIN/SWI 1gm 1 GM/10 ML SYR IV SCH (15:15)
[2019-10-29] MEDS: carvediloL 12.5 MG TAB PO SCH (17:24)
--- NOTE | 2019-10-29 18:13 | CON ---
Date of Consultation: 10/29/2019 Reason For Consultation: Abdominal pain. History Of Present Illness: Patient is a 39-year-old female with multiple medical problems, came in with dyspnea, cough, tachycardia, epigastric pain going to the back, associated with nausea, vomiting , bloating, belching and heartburn. She has had 3 attacks within the last 3 months. The last one wa s Saturday. She just has some soreness now. She had extensive respiratory cardiac workup done and als o ultrasound of the gallbladder, which showed a stone stuck in the neck of the gallbladder and I was consulted. She is awake and alert. No fever or chills at this time. No chest pain at this time. B reathing is much better after being admitted. Review of Systems: Otherwise unremarkable. Past Medical History: Significant for hypertension, kidney disease, depression, and hyperlipidemia. Past Surgical History: Hysterectomy, cyst removed from vaginal area, renal artery stent placement. Allergies: NONE. Social History: She does smoke, drinks occasionally. Family History: Noncontributory. Medications: Currently she is not on any blood thinners. She was on Plavix but she has not taken it in the last 4 days. Physical Examination: Vital Signs: Stable. She is afebrile. General: She is awake, alert, oriented x3. Head and Neck: Cranial nerves 2 through 12 grossly within normal limit. No neck masses. No JVD. T hroat clear. Neck supple. Chest: Clear. Heart: S1 and S2. Abdomen: Soft, nondistended, mild epigastric tenderness. No rebound, rigidity, or guarding. Extremities: Adequately perfused. Nontender. Neuro: Nonfocal. Diagnostic Studies: Her radiology reports reviewed. Her abdominal ultrasound shows 1.9 cm gallstone present in the neck of the gallbladder. Additional punctate stones may be obscured. Gallbladder wa s contracted. There is no pathological wall thickening or pericholecystic fluid. Assessment: Likely acute cholecystitis and cholelithiasis. Plan: N.p.o. after midnight. IV fluid. IV antibiotics and then to the OR for laparoscopic cholecys tectomy, possible open. The patient understands the risks, benefits, and alternatives and agrees to procedure. /MODL Voice ID: [id number] Report ID: [id number]
[2019-10-30] MEDS: LEVALBUTEROL 0.63 MG/3 ML NEB NEB SCH ×4 (01:50→20:47)
[2019-10-30] MEDS: carvediloL 12.5 MG TAB PO SCH (06:05)
--- NOTE | 2019-10-30 06:45 | EKG ---
Test Date: 2019-10-29 Test Time: 03:38:35 Still Operator Gin: CLARIBEL MEASUREMENT RESULTS: Intervals: Rate: 126 NM: 160 QRSD: 98 QT: 310 QTc: 448 [place]: P: 43 NM: 160 QRS: -1 T: 71 INTERPRETIVE STATEMENTS: Sinus tachycardia Possible Left atrial enlargement Borderline ECG Compared to ECG 03/23/2019 03:48:59 Sinus rhythm no longer present Prolonged QT interval no longer present Electronically Signed On 10-30-19 06:43:42 LEGAL OPERATIONS MANAGER by Romario Tyler
[2019-10-30 06:54] LABS: Magnesium 2.3 mg/dL (1.8-2.4); Potassium 4.6 mmol/L (3.5-5.1)
[2019-10-30 07:01] LABS: Absolute Lymphocytes (CBC) 1.9 K/uL (0.7-4.9); Basophils % 0.3 % (0-1.3); Hematocrit 39.9 % (36.0-45.0); Lymphocytes % 6.5 % (15.3-44.8); MPV 9.8 fL (7.6-11.3); RBC Red Blood Cell Count 4.61 M/uL (3.86-4.86)
--- NOTE | 2019-10-30 08:28 | ECHO ---
HEIGHT: 5 ft 3 in WEIGHT: 230 lb 4.8 oz DATE OF STUDY: 10/29/[address]: Jak Morales MD 2-DIMENSIONAL: YES M.MODE: YES DOPPLER: YES COLOR FLOW: YES TDS: NO PORTABLE: NO DEFINITY: NO BUBBLE STUDY: NO DIAGNOSIS: EDEMA/DYSPNEA CARDIAC HISTORY: CATHERIZATION: NO SURGERY: NO PROSTHETIC VALVE: NO PACEMAKER: NO MEASUREMENTS (cm) DIASTOLIC (NORMALS) SYSTOLIC (NORMALS) IVSd 1.2 (0.6-1.2) LA Diam 3.4 (1.9-4.0) LVEF 52% LVIDd 5.3 (3.5-5.7) LVIDs 3.9 (2.0-3.5) %FS 27% LVPWd 1.2 (0.6-1.2) Ao Diam 2.8 (2.0-3.7) 2 DIMENSIONAL ASSESSMENT: RIGHT ATRIUM: NORMAL LEFT ATRIUM: NORMAL RIGHT VENTRICLE: NORMAL LEFT VENTRICLE: NORMAL TRICUSPID VALVE: NORMAL MITRAL VALVE: NORMAL PULMONIC VALVE: NORMAL AORTIC VALVE: NORMAL PERICARDIAL EFFUSION: NONE AORTIC ROOT: NORMAL LEFT VENTRICULAR WALL MOTION: NORMAL. DOPPLER/COLOR FLOW: NORMAL. COMMENTS: NORMAL 2D ECHO WITH DOPPLER. NO WALL MOTION ABNORMALITY. NO EFFUSION. TECHNOLOGIST: KEVIN DYKES
[2019-10-30] MEDS ORDERED: Ringers Lactate 1,000 ML IV ONE (08:34)
[2019-10-30] MEDS: ESCITALOPRAM 20 MG TAB PO SCH (08:41)
[2019-10-30] MEDS: FUROSEMIDE 20 MG/ 2ML VIAL IV SCH ×2 (08:41→17:47)
[2019-10-30] MEDS: FUROSEMIDE 20 MG TABLET PO SCH (08:41)
[2019-10-30] MEDS: carvediloL 25 MG TAB PO SCH ×2 (08:41→21:04)
[2019-10-30] MEDS: cloNIDine HCL 0.1 MG TAB PO SCH ×2 (08:41→21:03)
[2019-10-30] MEDS ORDERED: CEFOXITIN/SWI 1gm 1 GM/10 ML SYR ONE (08:41)
[2019-10-30] MEDS: POTASSIUM CL SA 10 MEQ TAB PO SCH ×2 (08:41→21:03)
[2019-10-30] MEDS: AZITHROMYCIN IV 500 MG in NA CHLORIDE 0.9% 250 ML IVPB SCH (08:42)
[2019-10-30] MEDS: FAMOTIDINE 20 MG/2 ML VIAL IV SCH ×2 (08:42→21:04)
[2019-10-30] MEDS ORDERED: MIDAZOLAM HCL 2 MG/2 ML INJ ONE ×3 (09:31→12:26)
[2019-10-30] MEDS ORDERED: propofoL 200 MG/20 ML VIAL IV ONE (10:54)
[2019-10-30] MEDS ORDERED: GLYCOPYRROLATE 0.2 MG/ML SYR ONE ×2 (10:54→11:49)
[2019-10-30] MEDS ORDERED: LIDOCAINE 2% MPF 5 ML VIAL ONE (10:54)
[2019-10-30] MEDS ORDERED: FENTANYL CITR 100 MCG/2 ML ONE (10:54)
[2019-10-30] MEDS ORDERED: dexAMETHasone 10 MG/ML VIAL ONE (10:54)
[2019-10-30] MEDS ORDERED: ROCURONIUM 50 MG/5 ML VIAL IV ONE (10:54)
[2019-10-30 11:30] LABS: Blood Morphology Comment NOT SEEN (NOT SEEN); Platelet Estimate ADEQ; Urine White Blood Cell Casts OK
[2019-10-30] MEDS ORDERED: NS 0.9% VIAL 10 ML ONE (11:41)
[2019-10-30] MEDS ORDERED: Phenylephrine HCl 10 MG/ML 1 ML VIAL ONE (11:41)
--- NOTE | 2019-10-30 11:51 | P.OP ---
Mailer: Nina HILL Preoperative diagnosis: Acute Cholecystitis and Cholelithiasis Postoperative diagnosis: same Primary procedure: Lap Jasmin Anesthesia: General Estimated blood loss: min Specimen: GB Findings: as above Complications: None Transferred to: Recovery Room Condition: Good
[2019-10-30] MEDS ORDERED: NEOSTIGMINE 1 MG/ML -5 ML ONE (11:55)
[2019-10-30] MEDS ORDERED: CEFOXITIN SODIUM 1 GM/VIAL IVPB SCH (12:00)
[2019-10-30] MEDS ORDERED: PROMETHAZINE INJ 25 MG/ML AMP ONE (12:15)
[2019-10-30] MEDS ORDERED: ONDANSETRON 4 MG/2 ML VIAL ONE (12:30)
--- NOTE | 2019-10-30 12:42 | OP ---
Date of Procedure: 10/30/2019 Surgeon: Tima Koenig MD State Comptroller: LIZ Skinner. Preoperative Diagnoses: Acute cholecystitis, cholelithiasis. Postoperative Diagnoses: Acute cholecystitis, cholelithiasis. Procedure: Laparoscopic cholecystectomy. Estimated Blood Loss: Minimal. Specimen: Gallbladder. Findings: As above. Anesthesia: General. Complications: None. Patient tolerated the procedure in stable condition, taken to Recovery in good general condition. Procedure In Detail: Patient was brought to the OR and placed in supine position. General anesthesi a was begun. Patient was prepped and draped in usual sterile fashion. Marcaine 0.5% was infiltrated locally. A 15-blade was used to make a 1 cm supraumbilical midline incision. Subcutaneous tissue d ivided. Fascia was identified and divided. A #1 Vicryl stay suture was placed. Peritoneal cavity w as entered with sharp and blunt dissection. A 12-mm trocar was placed into the peritoneal cavity und er direct vision. Pneumoperitoneum was established. Then, three 5 mm trocars were placed, 1 in the epigastrium and 2 in the right subcostal region. Laparoscopy revealed acute on chronic inflammation of the gallbladder. Fundus retracted from the infundibulum identified and retracted inferolaterally. Cystic duct and cystic artery were clearly identified with blunt dissection. Clips placed. Both s tructures divided. Cautery was used to remove the gallbladder from the liver bed. Bleeding in the l iver bed was controlled with cautery. The gallbladder was retrieved through the umbilicus via an End oCatch bag. Right upper quadrant was irrigated. Effluent was clear. No evidence of bleeding or ksenia e leakage appreciated. Subsequently, all trocars were removed under direct vision. Stay sutures wer e tied to each other across the fascial defect. Subcutaneous wounds were irrigated. Bleeding was co ntrolled with cautery. 3-0 chromic used to approximate the subcutaneous tissue and close the skin. Sterile dressing was applied. Patient awakened, taken to Recovery in good general condition. /MODL Voice ID: [id number] Report ID: [id number]
[2019-10-30] MEDS: HYDROMORPHONE HCL 1 MG/ML INJ IV PRN ×3 (13:07→23:46)
[2019-10-30] MEDS: NA CHLORIDE 0.9% 1,000 ML IV SCH ×2 (14:23→23:48)
[2019-10-30] MEDS: CEFOXITIN/SWI 1gm 1 GM/10 ML SYR IV SCH ×3 (14:23→23:54)
[2019-10-30] MEDS: ONDANSETRON 4 MG/2 ML VIAL IV PRN (17:25)
--- NOTE | 2019-10-30 18:09 | PN ---
Date of Progress Note: 10/30/2019 Ms. Sommer Had come in yesterday with shortness of breath, abdominal pain with nausea and vomiting. Ec hocardiogram showed some mild left ventricular hypertrophy. Normal ejection fraction. She is feelin g better after inhalers and steroid. She does not have any more cardiovascular complaints, but her G I workup showed gallstones. There is a plan for surgery today by Dr. Koenig. Ms. Sommer has had stents in the past in the coronaries and her left renal artery. She is at low risk for perioperative morta lity. I will continue to follow her postoperatively. I will discuss the case further with Dr. Morales . Her blood pressure today was within normal limit. NB/MODL Voice ID: [id number] Report ID: [id number]
[2019-10-30] MEDS: ATORVASTATIN 40 MG TAB PO SCH (21:03)
[2019-10-30] MEDS: AMLODIPINE 10 MG TAB PO SCH (21:04)
--- NOTE | 2019-10-30 23:03 | PN ---
Subjective: Ms. Sommer this morning is feeling great, has no pain, nausea, vomiting. No fever. Physical Examination: Vital Signs: Blood pressure 153/110 after surgery today. Pulse is 80, temperature 97.3. HEENT: No JVD. No carotid bruits. Chest: Clear. Heart: Regular. Lab Examination: Significant for a white count of 29,000. Assessment And Plan: This could be because of a cholecystitis she has, but clinically she is very st able on Mefoxin IV. I will stop the Zithromax at this point. Surgery was done by Dr. Arya coleman and cholecystectomy was performed. Patient is stable on the floor. Patient possibly will go home tomorrow. ADAM/MODL Voice ID: [id number] Report ID: [id number]
[2019-10-31] MEDS: LEVALBUTEROL 0.63 MG/3 ML NEB NEB SCH ×4 (02:15→21:37)
[2019-10-31] MEDS: ESCITALOPRAM 20 MG TAB PO SCH ×2 (02:50→08:43)
[2019-10-31] MEDS: CEFOXITIN/SWI 1gm 1 GM/10 ML SYR IV SCH (05:43)
[2019-10-31 05:59] LABS: Magnesium 2.3 mg/dL (1.8-2.4); Phosphorus 5.4 mg/dL (2.5-4.9); Potassium 5.1 mmol/L (3.5-5.1)
[2019-10-31 06:02] LABS: Absolute Lymphocytes (CBC) 2.1 K/uL (0.7-4.9); Basophils % 0.5 % (0-1.3); Lymphocytes % 8.8 % (15.3-44.8); RBC Red Blood Cell Count 4.41 M/uL (3.86-4.86)
[2019-10-31] MEDS: FUROSEMIDE 20 MG TABLET PO SCH (08:42)
[2019-10-31] MEDS: cloNIDine HCL 0.1 MG TAB PO SCH ×2 (08:43→22:56)
[2019-10-31] MEDS: carvediloL 25 MG TAB PO SCH ×2 (08:43→22:56)
[2019-10-31] MEDS: FUROSEMIDE 20 MG/ 2ML VIAL IV SCH (08:44)
[2019-10-31] MEDS: POTASSIUM CL SA 10 MEQ TAB PO SCH (08:44)
[2019-10-31] MEDS: FAMOTIDINE 20 MG/2 ML VIAL IV SCH (08:44)
[2019-10-31] MEDS: NA CHLORIDE 0.9% 1,000 ML IV SCH ×3 (08:49→17:36)
[2019-10-31 09:18] LABS: Absolute Lymphocytes (CBC) 2.2 K/uL (0.7-4.9); Basophils % 0.3 % (0-1.3); Lymphocytes % 8.9 % (15.3-44.8); MPV 9.7 fL (7.6-11.3); RBC Red Blood Cell Count 4.43 M/uL (3.86-4.86)
[2019-10-31 09:31] LABS: Albumin 3.3 g/dL (3.4-5.0); Bilirubin Direct 0.1 mg/dL (0-0.2); Bilirubin Total 0.4 mg/dL (0.2-1.0); Potassium 4.5 mmol/L (3.5-5.1)
[2019-10-31 09:32] LABS: Blood Morphology Comment NOT SEEN (NOT SEEN); Platelet Estimate ADEQ
[2019-10-31] MEDS: METRONIDAZOLE 500mg IVPB 500 MG/100 ML BAG IV SCH ×2 (10:10→17:36)
--- NOTE | 2019-10-31 10:34 | PN ---
Date of Progress Note: 10/31/2019 Patient feels fidgety. She is awake and alert. Abdominal pain is not that much. Has been urinating very little. Her vital signs are stable. She is afebrile. White count is down to 25.1 thousand. Her creatinine however went from 1 yesterday to 4.34 earlier this morning and currently is 4.92. Dis cussed the case in detail with Dr. Morales. We will get a Nephrology consultation. Her abdomen is nura ign. Bladder does not appear to be distended, status post laparoscopic cholecystectomy and acute landy al failure recommendation. Await Nephrology consultation. Continue present care. We will make furt her recommendation after Nephrology sees the patient. /MODL Voice ID: [id number] Report ID: [id number]
[2019-10-31 10:53] LABS: Urine Appearance CLOUDY; Urine Bilirubin NEGATIVE (NEG); Urine Blood NEGATIVE (NEG); Urine Color YELLOW; Urine Glucose NEGATIVE (NEG); Urine Protein TRACE (NEG); Urine Urobilinogen 0.2 mg/dL (0.2-1.0); Urine pH 5.5 (5.0-7.0)
[2019-10-31] MEDS ORDERED: FUROSEMIDE 40 MG/4 ML VIAL IV ONE (11:00)
[2019-10-31 11:06] LABS: Urine Bacteria <20 /HPF (<20); Urine Culture Reflex Order NOT NEEDED; Urine RBC NONE SEEN /HPF (NONE SEEN)
[2019-10-31] MEDS: Ciprofloxacin 200mg IV 200 MG/100 ML IV.SOLN. IV SCH ×2 (11:10→22:55)
[2019-10-31 11:15] LABS: UR MICROALBUMIN 8.5 mg/dL (< 1.9)
[2019-10-31] MEDS: HYDROMORPHONE HCL 1 MG/ML INJ IV PRN ×3 (12:33→23:25)
--- NOTE | 2019-10-31 13:55 | PN ---
Subjective: Ms. Sommer is stable clinically. She is still slightly nauseous and in pain from gallblad lainey surgery yesterday. I talked to Dr. Koenig and he suggested the surgery was clean cut, had no compl ication during surgery. There was no signs of hypotension or low blood pressure during surgery also. She had acute cholecystitis which is now taken care of. Physical Examination: Vital Signs: Blood pressure 128/90, pulse is 95, temperature 98.4. HEENT: No JVD. No carotid bruits. Chest: Clear. Heart: Regular. Abdomen: Postop tenderness. No guarding. No rebound or rigidity. No distention. Lab Examination: White count has gone up to 25,000 from 23,000 this morning. I had ordered stat lab work again because I did not understand why the creatinine went up rapidly high up to 4.3 overnight. Now BUN is 36, creatinine 4.92. Assessment And Plannin.Acute renal failure. Unfortunately, this is overnight development. Usually diuretics induced madelin l failure will not be overnight like this, so I do not believe this is because of diuretics or hypote nsion because she did not have hypotension during surgery. Mefoxin is one of the culprit. I will di scontinue Mefoxin which is a cephalosporin, change room attendant to Cipro and Flagyl because she will continue getting antibiotics. Consulted Dr. Kaur for acute renal failure. I will redo renal ultrasound and urinalysis for urine cast evaluation. Rule out acute tubular necrosis, which could be related to acu te general condition at this point. 2.Leukocytosis, cholecystitis. Change antibiotics as stated above. 3.History of coronary disease. History of peripheral stents in the past, currently stable. No acut e coronary syndrome in diagnosis. Prognosis overall fair. I will call Dr. Kaur to discuss the case also. I will discuss with Dr. Titus ordaz this morning. RVD/MODL Voice ID: [id number] Report ID: [id number]
--- NOTE | 2019-10-31 20:04 | RAD REPORT ---
EXAM DESCRIPTION: US - Renal Ultrasound-Complete - 10/31/2019 6:23 pm CLINICAL HISTORY: Acute renal failure COMPARISON: Abdomen ultrasound October 29, CT abdomen November 2018 FINDINGS: The right kidney measures 6.8 x 3.4 x 3.3 cm. The left kidney measures 11.3 x 5.8 x 5.9 c m.. Renal cortical thickness and echogenicity are normal. No hydronephrosis of either kidney. Size as ymmetry was present back on the November 2018 study. The October 29 study indicated questionable com plex cyst or fatty mass in the upper pole of the right kidney. That finding was not clearly identifia ble on the current study. The bladder was contracted. Limited bladder assessment on this study. IMPRESSION: No hydronephrosis of either kidney. Significant renal size asymmetry dates back to prior imaging. Suspected small mass upper pole right kidney on the October 29 study is not clearly defined on this study. Likelihood of the significant right upper pole finding is felt to be low. A routine follow-up CT study could be performed if there are ongoing concerns. This could be delayed until such time as t he patient could receive IV contrast.
[2019-10-31] MEDS: ATORVASTATIN 40 MG TAB PO SCH (22:56)
[2019-10-31] MEDS: AMLODIPINE 10 MG TAB PO SCH (22:56)
[2019-10-31] MEDS ORDERED: FUROSEMIDE 20 MG/ 2ML VIAL IV ONE (23:43)
[2019-10-31] MEDS ORDERED: FUROSEMIDE 40 MG/4 ML VIAL ONE (23:52)
[2019-11-01] MEDS ORDERED: ACETYLCYST 20% 800 MG/4 ML VIAL PO SCH (01:00)
[2019-11-01] MEDS: METRONIDAZOLE 500mg IVPB 500 MG/100 ML BAG IV SCH ×2 (01:28→08:38)
[2019-11-01] MEDS ORDERED: ACETYLCYST 20% 4 ML VIAL IH ONE (02:01)
[2019-11-01] MEDS: LEVALBUTEROL 0.63 MG/3 ML NEB NEB SCH ×4 (02:37→20:00)
--- NOTE | 2019-11-01 02:50 | CON ---
Date of Consultation: 10/31/2019 Chief Complaint: Acute kidney injury, severe, nonoliguric associated with sepsis. Patient was found to have elevated WBC and underwent cholecystectomy. During this admission, renal f unction has declined. Patient presented to the hospital because of cough, dyspnea, epigastric pain, back pain and nausea and vomiting. She is 39-year-old a woman with history of renal artery stenosis, hypertension, history of tobacco. She was found to have tachycardia, severe leukocytosis. Prior to this admission, she had nausea, vomiting for at least 3 days and decreased p.o. intake. Cardiac con sultation was obtained and showed ejection fraction of 52%. Renal ultrasound did not show obstructiv e uropathy, but there is questionable kidney mass present, although there is no hydronephrosis. The patient does not have history of kidney problem. According to her, she has not had any history of ca ncer. Review of Systems: Constitutional: Denies syncope. She has had low-grade fever. Eyes: Denies vision changes. Ears, Nose, Mouth and Throat: Denies sore throat, earache. Respiratory: Denies PND, orthopnea. Cardiovascular: Denies chest pain, palpitation. GI: She was complaining of nausea, vomiting, abdominal pain radiating to back involving the right up per quadrant. : Denies dysuria, hematuria. Musculoskeletal: Denies muscle aches or joint swelling. Denies gout. All other systems reviewed and all are negative. Past Medical History: Hypertension, history of coronary artery disease, renal artery stenosis, histo ry of tobacco, obesity, depression, hyperlipidemia, hysterectomy, cyst removal in vaginal area. Social History: Positive for tobacco. Denies alcohol, illicit drug. Family History: No kidney disease in the family. Physical Examination: General: The patient is alert, oriented, not in acute distress. Eyes: Anicteric sclerae. EOMI. Ears, Nose, Mouth, and Throat: Oral mucosa moist. No pallor. Neck: Supple. No bruits. Lungs: Clear to auscultation bilaterally. Heart: S1, S2. No pericardial friction rub. Abdomen: Soft, benign. Decreased bowel sounds. Extremities: No edema. No clubbing. No cyanosis. Neurological: Moving extremities. Cranial nerves intact. Psychiatric: Alert oriented x3. Normal affect. Laboratory Data: On October 29, BUN was 13, creatinine was 0.96, bilirubin 0.3, AP 107, platelet coun t 318, WBC 12.4, hemoglobin 15.4. Today lab work showed sodium 138, potassium 5.1, chloride 106, CO2 of 22, BUN 32, creatinine 4.34, glucose 121, calcium 7.8, phosphorus 5.4, magnesium 2.3. Troponin l ess than 0.02. CK level is pending. Amylase was 55 and lipase was 118. Urinalysis showed specific gravity 1.010, pH 5.5, wbc less than 5, rbc 9. Urine protein creatinine ratio 1.0. Microalbumin cre atinine ratio 180.9. Impression And Plan: Acute on chronic kidney injury, severe, nonoliguric. Patient was started on IV fluids. Patient was found to have severe leukocytosis. The WBC was progressively worse up to 25,00 0 and on October 30 was 29,200. Platelet count remains within normal limits. The patient likely chavis s acute tubular necrosis, although prior to this admission she was complaining of nausea, vomiting. She denies nonsteroidal anti-inflammatory medication. Upon arrival to the hospital, she was found to have creatinine of 1.00, and she received IV contrast for CT scan of the chest. Patient will contin ue Mucomyst and IV fluids. IV fluids rate was increased to control renal hypoperfusion in setting of severe sepsis. Patient may require IV Lasix. Plan is to continue Mucomyst and IV fluids and workup is initiated to rule out obstructive uropathy, although ultrasound showed questionable mass. Patient denies previous history of kidney mass. Plan is to consult Urology for questionable kidney mass. EB/MODL Voice ID: [id number] Report ID: [id number]
[2019-11-01 06:20] LABS: Bilirubin Total 0.6 mg/dL (0.2-1.0); Potassium 4.6 mmol/L (3.5-5.1); Protein, Total 6.1 g/dL (6.4-8.2)
[2019-11-01 06:47] LABS: Albumin 2.8 g/dL (3.4-5.0)
[2019-11-01] MEDS: ESCITALOPRAM 20 MG TAB PO SCH (08:30)
[2019-11-01] MEDS: cloNIDine HCL 0.1 MG TAB PO SCH ×2 (08:31→22:23)
[2019-11-01] MEDS: FUROSEMIDE 40 MG/4 ML VIAL IV SCH ×2 (08:31→16:42)
[2019-11-01] MEDS: carvediloL 25 MG TAB PO SCH ×2 (08:35→22:22)
[2019-11-01] MEDS: ACETYLCYST 20% 800 MG/4 ML VIAL PO SCH ×2 (08:38→21:00)
[2019-11-01] MEDS: Ciprofloxacin 200mg IV 200 MG/100 ML IV.SOLN. IV SCH (09:00)
[2019-11-01 09:18] LABS: Protime INR 1.02
[2019-11-01 09:40] LABS: Absolute Lymphocytes (CBC) 1.4 K/uL (0.7-4.9); Basophils % 0.2 % (0-1.3); Hematocrit 37.6 % (36.0-45.0); Lymphocytes % 4.6 % (15.3-44.8); MPV 10.1 fL (7.6-11.3); RBC Red Blood Cell Count 4.36 M/uL (3.86-4.86)
[2019-11-01 09:53] LABS: Blood Morphology Comment NOT SEEN (NOT SEEN); Platelet Estimate ADEQ
[2019-11-01] MEDS ORDERED: propofoL 200 MG/20 ML VIAL IV ONE (10:14)
[2019-11-01] MEDS ORDERED: MIDAZOLAM HCL 2 MG/2 ML INJ ONE (10:14)
[2019-11-01] MEDS ORDERED: NA CHLORIDE 0.9% 100 ML IV ONE (10:20)
[2019-11-01] MEDS ORDERED: HEPARIN 5000 UNIT/ML 1 ML VIAL ONE (10:20)
[2019-11-01] MEDS ORDERED: NS 0.9% VIAL 10 ML ONE (10:21)
[2019-11-01] MEDS ORDERED: LIDOCAINE 1% MPF 30 ML VIAL ONE (10:21)
[2019-11-01] MEDS: LIDOCAINE 4% PATCH TOP SCH (11:00)
[2019-11-01] MEDS: HEPARIN 5000 UNIT/ML 1 ML VIAL ONE ×4 (11:09→11:18)
[2019-11-01] MEDS: NA CHLORIDE 0.9% 1,000 ML ONE ×2 (11:23→11:38)
--- NOTE | 2019-11-01 11:26 | P.OP ---
Preoperative diagnosis: ARF Postoperative diagnosis: same Primary procedure: EUGENIA Marques, Fluoroscopy Anesthesia: MAC Estimated blood loss: min Specimen: none Findings: normal anatomy Complications: None Transferred to: Recovery Room Condition: Good
--- NOTE | 2019-11-01 12:10 | RAD REPORT ---
EXAM DESCRIPTION: RAD - Chest Single View - 11/01/2019 12:03 pm CLINICAL HISTORY: S P HEMO CATH PLACEMENT Chest pain. COMPARISON: Chest Single View dated 10/29/2019; Chest Single View dated 03/23/2019; Chest Pa And Lat (2 Views) dated 09/03/2018; Chest Single View dated 09/14/2016 FINDINGS: Portable technique limits examination quality. Right-sided venous catheter has been placed with its tip in the SVC. No postprocedure pneumothorax. M ild pulmonary edema suspected. The heart is upper limit normal in size. IMPRESSION: No postprocedure pneumothorax.
--- NOTE | 2019-11-01 12:13 | RAD REPORT ---
EXAM DESCRIPTION: RAD - Fluoroscopy <1 Hour - 11/01/2019 12:03 pm CLINICAL HISTORY: Venous catheter insertion. HEMODIALYSIS CATHETER PLACEMENT WITH DR CAMERON COMPARISON: Urinary Bladder dated 04/15/2019 FINDINGS: Fluoroscopic imaging is submitted from placement of a venous catheter. Details of the pro cedure not available. Fluoroscopy time: 0.5 minutes
--- NOTE | 2019-11-01 13:16 | OP ---
Date of Procedure: 11/01/2019 Surgeon: Tima Koenig MD Brief History: Patient is a 39-year-old female, came in with abdominal pain, respiratory distress. Workup revealed gallstone in the neck of the gallbladder. An acute cholecystitis. She underwent a l aparoscopic cholecystectomy. Prior to the cholecystectomy, her white count had elevated to 29,000. After surgery, her creatinine jumped up. Nephrology was consulted. She had acute tubular necrosis. Etiology is unclear at this time. However, she does need dialysis, therefore informed consent obtai dilip for placement of Tesio catheter. Patient understood the risks, benefits, and alternatives and ag panda to procedure. Preoperative Diagnosis: Acute renal failure. Postoperative Diagnosis: Acute renal failure. Procedure Performed: Right internal jugular Tesio catheter placement and interpretation of intraoper ative fluoroscopy. Estimated Blood Loss: Minimal. Specimen: None. Findings: Normal anatomy. Anesthesia: MAC. Complications: None. Disposition: Patient tolerated the procedure in stable condition, taken to Recovery in good general condition. Procedure In Detail: Patient was brought to the OR and placed in supine position. MAC anesthesia be gun. Patient prepped and draped in the usual sterile fashion. Lidocaine 1% infiltrated locally. 18 -gauge needle was used to access the right IJ vein. Guidewire passed. Position was confirmed with f luoroscopy. Counterincision made. Tunneling device was used to tunnel the catheter between the 2 wo unds. Seldinger technique was used. The vein dilated and then tip of the catheter placed in the SVC under fluoroscopy. Catheter flushed with heparin and packed with heparin with good blood flow. The n, 3-0 chromic used for subcutaneous tissue and closure of skin was done. 3-0 nylon used to secure t he catheter to the chest wall. Sterile dressing applied. Patient was awakened and taken to Recovery in good general condition. Chest x-ray has been ordered. /MODL Voice ID: [id number] Report ID: [id number]
--- NOTE | 2019-11-01 14:41 | PN ---
Subjective: Ms. Sommer is slightly uncomfortable today, slightly short of breath , and right shoulder pain. There are no other complaints. No nausea, vomiting , diarrhea, or bleeding anywhere. Physical Examination: Vital Signs: NORMAL, temperature 96.9. HEENT: No JVD. No carotid bruits. Chest: Clear. Heart: Regular. Abdomen: No guarding, no rebound, no rigidity. Laboratory Data: Creatinine jumped up from 4.9 to 6.28 despite all efforts from Dr. Mckeon. Assessment And Plan: 1. Acute renal failure. Patient will get dialysis today. Hopefully, I talked to Dr. Koenig to place in a catheter and Dr. Mckeon is also arranging for dialysis after that. 2. Leukocytosis, white count is pending today. Liver profile shows increased AST and ALT yesterday in 100s, which may suggest cholangitis. 3. Right shoulder pain. She has been taking Advil at home. I will stop all anti-inflammatory medications as they can affect her kidneys. 4. Left renal artery stenosis. She had a stent placement about a couple months ago in [place] by some vascular surgeon there. Prognosis is overall guarded. Patient's medications have been reviewed. She is currently on amlodipine, atorvastatin, carvedilol, Cipro 200 mg IV, Flagyl 500 mg q.6 hours, clonidine, Lexapro, Lasix were given by Dr. Mckeon for changing anuric renal failure to have some urine output, but it did not work. She is waiting for dialysis today. RVD/MODL Voice ID: [id number] Report ID: [id number] PAULD
[2019-11-01] MEDS: HYDROMORPHONE HCL 1 MG/ML INJ IV PRN (15:09)
[2019-11-01] MEDS: Meropenem 500 MG in NA CHLORIDE 0.9% 100 ML IV SCH (16:43)
--- NOTE | 2019-11-01 19:13 | RAD REPORT ---
EXAM DESCRIPTION: CT - Chest Abd Pelvis Wo Con - 11/01/2019 6:15 pm CLINICAL HISTORY: Chest and abdomen pain. elevated wbc COMPARISON: Chest For Pe Angio dated 10/29/2019; Stone Protocol dated 12/21/2018; Renal Ultrasound-Comp lete dated 10/31/2019; Abdomen Exam Complete dated 10/29/2019; Fluoroscopy <1 Hour dated 11/01/2019; Chest Single View dated 11/01/2019 TECHNIQUE: A limited noncontrast study was performed. Oral contrast was administered. All CT scans are performed using dose optimization technique as appropriate and may include automated exposure control or mA/KV adjustment according to patient size. FINDINGS: Multifocal interstitial lung opacities are present bilaterally, mild.Small bilateral pleur al effusions.No intrathoracic adenopathy. Limited noncontrast assessment of the liver is unremarkable. Cholecystectomy clips. The spleen, pancr eas and adrenal glands are normal. The left kidney appears prominent in size with mild surrounding pe rinephric fat stranding. Right kidney appears smaller in size. No hydronephrosis. No bowel obstruction, free air, intra-abdominal free fluid or abscess. The appendix is not identified as a discrete structure, however, no secondary findings of appendicitis are identified. Mild pelvic free fluid. No pathologic lymphadenopathy in the abdomen or pelvis. No worrisome osseous finding. IMPRESSION: Perinephric fat stranding surrounding both kidneys, slightly greater on the left could i ndicate pyelonephritis. Suggest correlation for the possibility of urinary tract infection/ pyeloneph ritis. Mild bilateral interstitial lung opacities with small bilateral pleural effusions probably infection or pulmonary edema/volume overload.
[2019-11-01] MEDS: HYDROCODONE/APAP 7.5/325 MG TAB PO PRN (22:23)
[2019-11-01] MEDS: AMLODIPINE 10 MG TAB PO SCH (22:23)
[2019-11-01] MEDS: ATORVASTATIN 40 MG TAB PO SCH (22:23)
--- NOTE | 2019-11-02 00:02 | PN ---
Date of Progress Note: 11/01/2019 Chief Complaint: Severe acute kidney injury, borderline oliguric. Patient completed IV fluids and was taken off IV fluids due to some congestion in her lungs. Subsequ ently, she received IV Lasix. Urine output has not improved significantly. Over the last 24 hours u rine output was about [address] scan of the chest, abdomen, and pelvis was re-evaluated because of persistent leukocytosis with hyperleukocytosis and sepsis. Perinephric fat stranding in both kidneys slightly greater on the left could indicate pyelonephritis. Suggest correlation for possibility of urinary tract infection, pyelonephritis, mild bilateral interstitial lung opacities with small bilate ral pleural effusion, probably infection, pulmonary edema, volume overload. Patient is to have dialy sis today and is scheduled to have dialysis catheter. Subsequently, patient will have dialysis to ob tain metabolic clearance to control azotemia, prevent hyperkalemia, and to obtain ultrafiltration to treat fluid overload. Review of Systems: Denies PND or orthopnea. Physical Examination: Lungs: Few crackles at bases heart S1-S2. Abdomen: Soft, benign. Extremities: Edema present. Laboratory Data: WBC 30.7, hemoglobin 12.4, platelet count 194,000. Chemistry showed sodium 137, po tassium 4.8, chloride 104, CO2 19, BUN 41, creatinine 6.28, AST 95, ALT 147, protein 6.1, albumin and albumin 2.8. Troponin less than 0.02. Impression And Plan: 1.Severe acute kidney injury. Patient will start dialysis. Temporary dialysis catheter was request ed and placed by Surgical Team. Patient will have 2 hours dialysis tomorrow, subsequently tomorrow p ludivina is to start 3 hours of treatment with dialysis. Monitor electrolytes. Adjust treatment accordin gly. 2.Acute kidney injury, likely secondary to sepsis with ATN. Patient will continue antibiotics. 3.Pyelonephritis. Urine culture is pending. Blood culture was obtained and pending results. Preli minary urine culture showed no growth. EB/MODL Voice ID: [id number] Report ID: [id number]
[2019-11-02] MEDS: LEVALBUTEROL 0.63 MG/3 ML NEB NEB SCH ×4 (02:05→19:25)
[2019-11-02 07:29] LABS: Absolute Lymphocytes (CBC) 1.2 K/uL (0.7-4.9); Basophils % 0.1 % (0-1.3); Hematocrit 34.4 % (36.0-45.0); Lymphocytes % 4.4 % (15.3-44.8); MPV 9.7 fL (7.6-11.3); RBC Red Blood Cell Count 4.03 M/uL (3.86-4.86)
[2019-11-02] MEDS: ACETYLCYST 20% 800 MG/4 ML VIAL PO SCH (09:00)
[2019-11-02] MEDS: FUROSEMIDE 40 MG/4 ML VIAL IV SCH ×2 (09:09→18:21)
[2019-11-02] MEDS: LIDOCAINE 4% PATCH TOP SCH (09:09)
[2019-11-02] MEDS: HYDROCODONE/APAP 7.5/325 MG TAB PO PRN (09:10)
[2019-11-02] MEDS: ESCITALOPRAM 20 MG TAB PO SCH (09:10)
[2019-11-02] MEDS: cloNIDine HCL 0.1 MG TAB PO SCH ×2 (09:11→22:33)
[2019-11-02] MEDS: carvediloL 25 MG TAB PO SCH ×2 (09:15→22:32)
--- NOTE | 2019-11-02 11:56 | PN ---
Date of Progress Note: 11/02/2019 Subjective: Patient is awake, alert, feeling a little better. Vital signs are stable, afebrile. Wh ite count is still elevated. Creatinine is still up. Abdomen is benign. CT of the abdomen and pelv is reviewed. Possible pyelonephritis, although the vascular status was not assessed because of lack of IV contrast use. Assessment: Status post laparoscopic cholecystectomy, acute renal failure. Plan: At this point of medical management, we will discuss the case with Dr. Morales regarding possibl y getting a CT of the renal artery per protocol to assess flow and make sure there was no thrombosis or any issues with that. /MODL Voice ID: [id number] Report ID: [id number]
[2019-11-02] MEDS: HYDROMORPHONE HCL 1 MG/ML INJ IV PRN (17:53)
[2019-11-02] MEDS: Meropenem 500 MG in NA CHLORIDE 0.9% 100 ML IV SCH (18:10)
--- NOTE | 2019-11-02 22:24 | PN ---
Subjective: Ms. Sommer is doing lot better. Her breathing has improved. Denies any chest pain, nause a, vomiting. Physical Examination: Vital Signs: Blood pressure 106/57. Chest: Clear. Heart: Regular. Abdomen: No guarding. No rebound. No rigidity. Postoperative changes. Laboratory Data: White count down to 28,000, on meropenem. Assessment And Plan: 1.Sepsis related to cholecystitis, status post cholecystectomy. Continue antibiotics. Clinically, she is stable and improving. 2.Acute renal failure from acute tubular necrosis, most likely etiology unclear. 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 We had to start dialysis yesterday because she failed to improve from her anuria, currently stable. I filled the papers for 1 month off work for this lady, who may need about a month to recove r from this severe condition. ADAM/KIA Voice ID: [id number] Report ID: [id number]
[2019-11-02] MEDS: ATORVASTATIN 40 MG TAB PO SCH (22:32)
--- NOTE | 2019-11-02 23:51 | PN ---
Date of Progress Note: 11/02/2019 Chief Complaint: Acute kidney injury secondary to acute tubular necrosis. History Of Present Illness: Patient developed severe sepsis. She remains hemodynamically stable. S he is started on dialysis for acute kidney injury. Renal function has not improved. Urine output is minimal at this point. Review of Systems: Respiratory: Denies PND, orthopnea. Cardiovascular: Denies chest pain, palpitation. GI: Denies nausea, vomiting. : Denies dysuria, hematuria. Physical Examination: Lungs: Clear to auscultation bilaterally. Heart: S1, S2. Abdomen: Soft, benign, nontender. Extremities: No edema. Impression And Plan: 1.Acute kidney injury, severe. Urine output has not improved. Monitor electrolytes and azotemia. Dialysis will be done today. Ultrafiltration is 1 L as tolerated. Patient does not have overt fluid overload. 2.Patient was started on Lasix to induce diuresis. 3.Pyelonephritis. Urine culture is pending. Blood culture obtained and results pending. Urine cul ture although showed no growth. EB/MODL Voice ID: [id number] Report ID: [id number]
[2019-11-03] MEDS: LEVALBUTEROL 0.63 MG/3 ML NEB NEB SCH ×4 (01:20→20:40)
[2019-11-03] MEDS: HYDROMORPHONE HCL 1 MG/ML INJ IV PRN ×2 (05:40→20:55)
[2019-11-03 05:53] LABS: Absolute Lymphocytes (CBC) 1.7 K/uL (0.7-4.9); Basophils % 0.3 % (0-1.3); Hematocrit 34.5 % (36.0-45.0); Lymphocytes % 6.7 % (15.3-44.8); MPV 9.9 fL (7.6-11.3); RBC Red Blood Cell Count 4.03 M/uL (3.86-4.86)
[2019-11-03 07:49] LABS: Potassium 3.8 mmol/L (3.5-5.1)
[2019-11-03] MEDS: LIDOCAINE 4% PATCH TOP SCH (09:00)
[2019-11-03] MEDS: carvediloL 25 MG TAB PO SCH ×2 (09:31→22:12)
[2019-11-03] MEDS: ESCITALOPRAM 20 MG TAB PO SCH (09:31)
[2019-11-03] MEDS: cloNIDine HCL 0.1 MG TAB PO SCH (09:32)
[2019-11-03] MEDS: FUROSEMIDE 40 MG/4 ML VIAL IV SCH (09:33)
[2019-11-03] MEDS ORDERED: levoFLOXacin 500 MG TAB PO ONE (10:56)
[2019-11-03] MEDS ORDERED: Levofloxacin 250mg IV 250 MG/50 ML BAG IV SCH (11:00)
[2019-11-03] MEDS: HYDROCODONE/APAP 7.5/325 MG TAB PO PRN (11:43)
[2019-11-03] MEDS ORDERED: levoFLOXacin 250 MG TAB PO SCH (12:00)
--- NOTE | 2019-11-03 14:40 | PN ---
Date of Progress Note: 11/03/2019 Subjective: The patient was admitted with shortness of breath, had acute kidney injury secondary to contrast-induced nephropathy. Objective: Vital Signs: When I saw the patient, blood pressure 125/63, pulse of 89, afebrile. The patient had good urine output of 1800. The patient was initiated on dialysis. Chest: Clear to auscultation. Has right IJ PermCath. Heart: S1, S2 regular. Abdomen: Soft, nontender. Extremities: No edema. Laboratory Data: WBC 25.7, H and H 11.6/24.5, platelets 190. Sodium 137, potassium 3.8, bicarb 25, BUN 32, creatinine 6.2, GFR of 7, calcium 7.8, magnesium of 2. Urinalysis, P-C ratio of 0.2. Serology still pending. Current Medications: The patient on include: 1. Meropenem. 2. Atorvastatin. 3. Carvedilol 25 b.i.d. 4. Clonidine 0.1 b.i.d. 5. Lasix. 6. Hydromorphone. Assessment And Plan: 1. Acute kidney injury with small right kidney nonnephrotic. I am going to continue the patient on dialysis 3 times a week. We will arrange for outpatient dialysis and we will monitor the patient. 2. Shortness of breath has been resolved. 3. I am going to go ahead and send for full serology to rule out any pulmonary , renal. We will follow up. 4. Disproportion in the kidney size, possible patient had renal artery disease with the presence of pulmonary finding. Vascular renal disease needs to be rule out/ will be sending full serology. We will follow up. 5. Mass on the right kidney, need outpatient followup. 6. Leukocytosis secondary to possible pneumonia. All cultures negative. Patient already on meropenem. We will continue to follow up. I am going to add levaquin giving the finding on the chest x-ray. We will start the patient on Levaquin and we will follow up culture. LAUREN/KIA Voice ID: [id number] Report ID: [id number]
--- NOTE | 2019-11-03 17:40 | PN ---
Date of Progress Note: 11/03/2019 Subjective: Patient is awake, alert. Very minimal pain. Tolerating diet, ambulating. Pain control led on p.o. pain medication. Objective: Vital Signs: Stable. Afebrile. Abdomen: Benign. Laboratory Data: Reviewed. White count is down slightly to 25.7. Creatinine is down also slightly to 6.25. Potassium is normal. Assessment: Status post laparoscopic cholecystectomy, acute renal failure. Recommendations: Continue management per the Nephrology and Internal Medicine Service. Surgically p atient is stable and doing well. /MODL Voice ID: [id number] Report ID: [id number]
[2019-11-03] MEDS: Meropenem 500 MG in NA CHLORIDE 0.9% 100 ML IV SCH (17:56)
[2019-11-03] MEDS ORDERED: cloNIDine HCL 0.1 MG TAB PO PRN (18:10)
[2019-11-03] MEDS: ATORVASTATIN 40 MG TAB PO SCH (22:12)
--- NOTE | 2019-11-03 23:16 | PN ---
Subjective: Ms. Sommer is doing lot better, starting to improve in her physical condition. Denies any chest pain, nausea, vomiting. Starting to have bowel movements and passage of gas. Objective: Vital Signs: Blood pressure 102/68. HEENT: No JVD. No carotid bruits. Chest: Clear. Heart: Regular. Abdomen: Soft. No guarding. No rebound or rigidity. Laboratory Data: White count is down to 25,000 down from 30,000. BUN and creatinine remain high iván pite dialysis at this point. Assessment And Plan: 1.Status post cholecystectomy, doing well with the surgery, started to pass gas. Hopefully, will chavis ve BM in couple of days. 2.Leukocytosis, most likely from infection, I suspect intraabdominal. I do not see anything obvious on the CAT scan. Still I had to change from Cipro and Flagyl to meropenem as Cipro and Flagyl did n ot control her white count elevation. So far, cultures are negative for blood cultures. There are n o signs of respiratory infection. There are no signs of renal infection. UA is negative. Plan is t o continue meropenem until white count is normal, which may take about 4-5 more days. 3.Blood pressure control is much better now. I will at this point start reducing her blood pressure pills. Her blood pressure was high because of need of dialysis, which happened after surgery after Mefoxin most Likely. 4.Acute tubular necrosis managed by hairspring inspector. Follow up on a daily basis and lab work. ADAM/MODL Voice ID: [id number] Report ID: [id number]
[2019-11-04] MEDS: LEVALBUTEROL 0.63 MG/3 ML NEB NEB SCH ×4 (02:10→19:58)
[2019-11-04 04:46] LABS: Absolute Lymphocytes (CBC) 1.5 K/uL (0.7-4.9); Basophils % 0.2 % (0-1.3); Hematocrit 35.1 % (36.0-45.0); Lymphocytes % 6.6 % (15.3-44.8); MPV 9.9 fL (7.6-11.3); RBC Red Blood Cell Count 4.07 M/uL (3.86-4.86)
[2019-11-04 05:08] LABS: Albumin 2.2 g/dL (3.4-5.0); Phosphorus 5.5 mg/dL (2.5-4.9); Potassium 3.8 mmol/L (3.5-5.1)
[2019-11-04 06:42] LABS: Rheumatoid Factor NEG (NEG)
[2019-11-04] MEDS: LIDOCAINE 4% PATCH TOP SCH (08:32)
[2019-11-04] MEDS: carvediloL 25 MG TAB PO SCH (09:00)
[2019-11-04] MEDS: HYDROCODONE/APAP 7.5/325 MG TAB PO PRN (09:45)
--- NOTE | 2019-11-04 10:12 | RAD REPORT ---
EXAM DESCRIPTION: US - Abdomen Pelvis Scan US - 11/04/2019 9:42 am CLINICAL HISTORY: High blood pressure renal artery stenosis COMPARISON: Abdomen Pelvis Scan US dated 05/02/2019 FINDINGS: The right kidney is small in size relative to the left measuring 6.5 x 3.2 x 3.1 cm. The l eft kidney is normal sized measuring 12.7 x 6.3 x 5.8 cm. No hydronephrosis. Aortic velocity: 55 cm/second Right proximal renal artery: 65 cm/second Right mid renal artery: 120 cm/second Right distal renal artery: 63 cm/second Right renal arcuate artery resistive index: 0.4 Right renal artery / aorta ratio: 2.2 Left proximal renal artery: 26 cm/second Left mid renal artery: 26 cm/second Left distal renal artery: 32 cm/second Left renal arcuate artery resistive index: 0.7 Left renal artery/aorta ratio: 0.6 IMPRESSION: No evidence of hemodynamically significant stenosis within the bilateral renal arteries.
--- NOTE | 2019-11-04 14:59 | PN ---
Date of Progress Note: 11/04/2019 Subjective: Patient was admitted with shortness of breath, pneumonia, had acute kidney injury second stanley to contrast-induced nephropathy. Physical Examination: Vital Signs: Blood pressure 132/67, pulse of 86, afebrile. Patient had good urine output of 500. Chest: Clear to auscultation. Heart: S1, S2. Regular. Abdomen: Soft, nontender. Extremities: No edema. Laboratory Data: WBC 22.3, H and H are 11.5/35.1, platelets 282. Sodium 135, potassium 3.5, bicarb 27, BUN 46, creatinine 7.9, GFR of 6, calcium 7.9. Phosphorus 5.5, albumin 2.2. Corrected calcium i s 9.1. Serum protein electrophoresis is still pending. Current Medications: The patient on which include Levaquin 250 after each dialysis, meropenem, carve dilol, atorvastatin, clonidine, Zofran. Assessment And Plan: 1.Acute kidney injury secondary to contrast-induced nephropathy. No activity in the urine. Nonneph rotic. We are going to continue the patient on dialysis 3 times a week. Unfortunately, patient not qualify for home hemodialysis. We will arrange for in center and we will follow up. 2.Pneumonia with leukocytosis. Continue current antibiotic. Culture is negative. We will follow u p with Primary. 3.Respiratory failure, recovered. 4.Cholecystitis, status post cholecystectomy. Follow up with Surgery and Primary. We will monitor. 5.Hypertension, controlled, optimal. Continue current medication. LAUREN/KIA Voice ID: [id number] Report ID: [id number]
[2019-11-04] MEDS: HYDROMORPHONE HCL 1 MG/ML INJ IV PRN (15:38)
[2019-11-04] MEDS: ESCITALOPRAM 20 MG TAB PO SCH (15:41)
[2019-11-04] MEDS: Meropenem 500 MG in NA CHLORIDE 0.9% 100 ML IV SCH (16:29)
--- NOTE | 2019-11-04 23:32 | PN ---
Subjective: Ms. Sommer is doing a lot better. She had dialysis today. Objective: Chest: Clear. Heart: Regular. Abdomen: No guarding, no rebound. No rigidity. She had a good BM for last 24 hours now. Laboratory Data: White count is down to 22,000, BUN and creatinine still high at 46 and 7.99. She i s starting to have urine output about 500 mL every day. Assessment And Plan: 1.Oliguric acute renal failure. Possibility of improvement is there with time. 2.Leukocytosis, possible intraabdominal infection, possible cholangitis. Continue meropenem, improv ing gradually. She failed to recover on Mefoxin and Cipro Flagyl before. 3.Hypertension. Currently blood pressure is lower, so I am reducing the medications. RVD/MODL Voice ID: [id number] Report ID: [id number]
[2019-11-05] MEDS: carvediloL 25 MG TAB PO SCH ×3 (02:00→21:00)
[2019-11-05] MEDS: LEVALBUTEROL 0.63 MG/3 ML NEB NEB SCH ×2 (02:00→07:50)
[2019-11-05] MEDS: ATORVASTATIN 40 MG TAB PO SCH ×2 (02:00→21:00)
[2019-11-05] MEDS: HYDROMORPHONE HCL 1 MG/ML INJ IV PRN ×2 (02:05→11:28)
[2019-11-05 02:57] LABS: HBsAG Nonreactive (Nonreactive)
[2019-11-05 04:35] LABS: Absolute Lymphocytes (CBC) 1.8 K/uL (0.7-4.9); Lymphocytes % 11.5 % (15.3-44.8); MPV 9.6 fL (7.6-11.3); RBC Red Blood Cell Count 4.29 M/uL (3.86-4.86)
[2019-11-05 05:13] LABS: Albumin 2.2 g/dL (3.4-5.0); Phosphorus 5.1 mg/dL (2.5-4.9)
[2019-11-05] MEDS: ESCITALOPRAM 20 MG TAB PO SCH (09:02)
[2019-11-05] MEDS: LIDOCAINE 4% PATCH TOP SCH (09:02)
[2019-11-05 10:31] LABS: Blood Morphology Comment NOT SEEN (NOT SEEN); Platelet Estimate ADEQ
--- NOTE | 2019-11-05 12:06 | PN ---
Date of Progress Note: 11/05/2019 The patient was admitted with acute kidney injury secondary to contrast-induced nephropathy, cholecys titis. Physical Examination: Vital Signs: Blood pressure 131/67, pulse of 79, afebrile. The patient still has good urine output of 700. Chest: Clear to auscultation. Heart: S1, S2 regular. Abdomen: Soft, nontender. Extremities: No edema. Laboratory Data: WBC 15.7, H and H 12.3/37, platelets 254. Sodium 138, potassium 4, bicarb 28, BUN 31, creatinine 6.6. This is after dialysis, calcium 8.1, phosphorus 5.1, albumin 2.2, corrected calc ium is 9.5, PTH 179. Assessment And Plan: 1.Acute kidney injury secondary to contrast-induced nephropathy with severe disproportion in the kid jamar size, though blood study did not support renal artery stenosis, but again this is not the standar d. We will continue to monitor. Patient will need evaluation as outpatient if kidney function did n ot improve. At that time, we will proceed with MRA. 2.Hypertension, controlled optimal. 3.Cholecystitis, status post surgery, follow up with the Primary. 4.Pneumonia. Leukocytosis. Continue current antibiotic. Cell count improving significantly. 5.Secondary hyperparathyroidism. No need for vitamin D for the time being. MARCIO Voice ID: [id number] Report ID: [id number]
[2019-11-05] MEDS: Meropenem 500 MG in NA CHLORIDE 0.9% 100 ML IV SCH (16:04)
[2019-11-05] MEDS ORDERED: LORazepam 2 MG/ML VIAL IV ONE (16:18)
--- NOTE | 2019-11-05 22:03 | PN ---
Subjective: Ms. Sommer is doing a lot better. She is having BM everyday. Denies any chest pain, naus ea, or vomiting. Her appetite is coming back. Objective: Vital Signs: Blood pressure 142/71, temperature 97.6. HEENT: No JVD. No carotid bruits. Chest: Clear. Heart: Regular. Abdomen: No guarding, no rebound, no rigidity. Postoperative soft abdomen now. Laboratory Data: White count is down to 15,000. BUN and creatinine 31 and 6.61. Assessment And Plan: Sepsis. IV antibiotics. Meropenem works. No other antibiotics work. I will continue this for 7 days. I had a phone call from nurses today that she has a dialysis day fixed at the dialysis center, but we did a PICC line and home arrangement of antibiotics, meropenem for 7 more days. She will be discharged when that is available, it may tomorrow or Saturday to have that taken c are of. MIKED/MODL Voice ID: [id number] Report ID: [id number]
[2019-11-06 05:03] VITALS: BMI 41.5
[2019-11-06 06:59] LABS: Basophils % 0.1 % (0-1.3); Hematocrit 36.5 % (36.0-45.0); Lymphocytes % 11.5 % (15.3-44.8); MPV 9.6 fL (7.6-11.3)
[2019-11-06 07:24] LABS: Albumin 2.1 g/dL (3.4-5.0); Phosphorus 5.7 mg/dL (2.5-4.9); Potassium 4.2 mmol/L (3.5-5.1)
[2019-11-06] MEDS: LIDOCAINE 4% PATCH TOP SCH (08:50)
[2019-11-06] MEDS: VALACYCLOVIR 500 MG TAB PO SCH ×2 (08:50→21:23)
[2019-11-06] MEDS: ESCITALOPRAM 20 MG TAB PO SCH (08:50)
[2019-11-06] MEDS: carvediloL 25 MG TAB PO SCH ×2 (08:50→21:23)
[2019-11-06 09:07] LABS: Platelet Estimate ADEQ
[2019-11-06 09:08] LABS: Blood Morphology Comment NOT SEEN (NOT SEEN)
[2019-11-06] MEDS: ONDANSETRON 4 MG/2 ML VIAL IV PRN (09:24)
--- NOTE | 2019-11-06 12:19 | RAD REPORT ---
EXAM DESCRIPTION: RAD - Chest Single View - 11/06/2019 1:34 am CLINICAL HISTORY: PICC placement COMPARISON: 10/29/2019 FINDINGS: Single frontal view of the chest. Cardiomediastinal silhouette: Cardiomegaly. Right IJ dialysis catheter. Left arm PICC with tip in the SVC. Lungs: Pulmonary vascular congestion. No pneumothorax or large effusion. Bones: No acute osseous abnormality. Upper abdomen: No abnormality identified. IMPRESSION: 1. Cardiomegaly with pulmonary vascular congestion. Left arm PICC with tip in the SVC. 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 The interpreting radiologist is f ully responsible for the content of the report.
--- NOTE | 2019-11-06 13:09 | P.PN ---
Subjective Date of Service: 11/06/19 Chief Complaint: DYSPNEA, COUGH, EPIG PAIN, TO BACK, NAUSEA, VOMITING. Subjective: New changes pt admitted with sepsis, developed HUONG , reqired to initiate HD today seen and examined during HD no new complaints scheduled for dialysis as an OP tomorrow Assessment And Plan: Acute kidney injury possibly due to Sepsis GN and contrast ATN started HD Rt atrophic kidney serology w/u BAILEY, ANCA, hep pane, C4,c3 wnl F/U rest of w/u can be discharged from nephrology point of view HTN now better controlled Sepsis to cont merrem as an OP Cholecystitis, S/P choleycystectomy Physical Examination - Vital Signs Temperature: 97 F Blood Pressure: 122/77 Pulse: 79 Respirations: 18 Pulse Ox (%): 95
[2019-11-06] MEDS ORDERED: ACETAMINOPHEN 500 MG TAB PO PRN (14:47)
[2019-11-06] MEDS: Meropenem 500 MG in NA CHLORIDE 0.9% 100 ML IV SCH (15:00)
--- NOTE | 2019-11-06 18:40 | PN ---
Subjective: Ms. Sommer is doing great. She has a spot on the lower back and gluteal region, which is likely itching and has some open areas. Physical Examination: Vital Signs: Blood pressure 122/77, temperature 97. HEENT: No JVD. No carotid bruits. Chest: Clear. Heart: Regular. Abdomen: No guarding, no rebound, no rigidity. Investigations: Patient had a PICC line placement yesterday because of the need to continue meropene m for about 1 more week. Her white count is higher today at 17,000 that could be a normal fluctuatio n for her. Her BUN 45, creatinine 8.22. Assessment And Plan: 1.Abdominal infection. Continue meropenem for 7 more days. We were hoping for approval from [employer]. Clinically, she is stable from 2 episodes of shingles, right gluteal region. Valtrex 5 00 mg p.o. b.i.d. for 5 days. 2.Renal failure, acute tubular necrosis. Followed by glass production machine operator. Continue dialysis until cleared. She may need dialysis for a few months at least or longer. RVD/MODL Voice ID: [id number] Report ID: [id number]
[2019-11-06 20:16] VITALS: BP 134/78; TEMP 97.4
[2019-11-06 21:18] VITALS: O2SAT 95
[2019-11-06] MEDS: ATORVASTATIN 40 MG TAB PO SCH (21:23)
[2019-11-07 11:54] LABS: HIV AG/AB 4TH GEN Non-reactive (Non-reactive)
[2019-11-10 00:17] LABS: Albumin, (SPE) 2.4 g/dL (3.8-4.8); Alpha-1-Globulins 0.5 g/dL (0.2-0.3); Alpha-2-Globulins 0.8 g/dL (0.5-0.9); Gamma Globulins 0.4 g/dL (0.8-1.7); INTERPRETATION REPORT
== END 2019-11-06 21:30 | disposition home health service (06) | DRG 853 ==
LOC: ER 03:26 → ERHOLD 07:25 → 4TH 12:16 → OBSVTOIN 10-30 14:48
PROVIDERS: ADMIT Internal Medicine; ATTEND Internal Medicine
PROC: 0FT44ZZ Resection of Gallbladder, Percutaneous Endoscopic Approach (ICD-10-PCS; principal; 2019-10-30 09:00)
PROC: 0JH63XZ Insertion of Tunneled Vascular Access Device into Chest Subcutaneous Tissue and Fascia, Percutaneous Approach (ICD-10-PCS; 2019-11-01)
PROC: 05HM33Z Insertion of Infusion Device into Right Internal Jugular Vein, Percutaneous Approach (ICD-10-PCS; 2019-11-01)
PROC: 5A1D70Z Performance of Urinary Filtration, Intermittent, Less than 6 Hours Per Day (ICD-10-PCS; 2019-11-01)
PROC: 5A1D70Z Performance of Urinary Filtration, Intermittent, Less than 6 Hours Per Day (ICD-10-PCS; 2019-11-02)
PROC: 5A1D70Z Performance of Urinary Filtration, Intermittent, Less than 6 Hours Per Day (ICD-10-PCS; 2019-11-04)
PROC: 02HV33Z Insertion of Infusion Device into Superior Vena Cava, Percutaneous Approach (ICD-10-PCS; 2019-11-05)
PROC: 5A1D70Z Performance of Urinary Filtration, Intermittent, Less than 6 Hours Per Day (ICD-10-PCS; 2019-11-06)
DX: A41.9 Sepsis, unspecified organism (principal); N17.0 Acute kidney failure with tubular necrosis; J18.9 Pneumonia, unspecified organism; J96.90 Respiratory failure, unspecified, unspecified whether with hypoxia or hypercapnia; K80.00 Calculus of gallbladder with acute cholecystitis without obstruction; N25.81 Secondary hyperparathyroidism of renal origin; I25.10 Atherosclerotic heart disease of native coronary artery without angina pectoris; I70.1 Atherosclerosis of renal artery; F17.200 Nicotine dependence, unspecified, uncomplicated; E78.5 Hyperlipidemia, unspecified; J20.9 Acute bronchitis, unspecified; R00.0 Tachycardia, unspecified; R10.13 Epigastric pain; I12.9 Hypertensive chronic kidney disease with stage 1 through stage 4 chronic kidney disease, or unspecified chronic kidney disease; N18.2 Chronic kidney disease, stage 2 (mild); E78.00 Pure hypercholesterolemia, unspecified; M25.511 Pain in right shoulder; N28.89 Other specified disorders of kidney and ureter
CPT/HCPCS: 36415; 71045; 71250; 71275; 74176; 76000; 76700; 76770; 80048; 80053; 80069; 80076; 81001; 82043; 82150; 82553; 82570; 82805; 83520; 83690; 83735; 83880; 83970; 84100; 84156; 84165; 84484; 85025; 85610; 86021; 86038; 86160; 86225; 86335; 86430; 86704; 86706; 86803; 87040; 87086; 87088; 87340; 87389; 88304; 90935; 93005; 93306; 93975; 94640; 96374; 96375; 99285; C1752; G0378; J0456; J0744; J1100; J1170; J1644; J1940; J2250; J2370; J2405; J2550; J2704; J2710; J2930; J3010; J7030; J7120; Q9967

== ENCOUNTER 2019-11-14 00:46 | Inpatient (IN) | payer OTHER ==
--- OUTSIDE RECORDS SUMMARY | 2019-11-14 00:50 | XMS REPORT ---
[...] End Status Dosage System Date Date Escitalopram [facility] [address]-02 Active not Oxalate defined Clopidogrel [facility] [address]-64 Active not Bisulfate defined Carvedilol [facility] [address]-57 Active not defined Clonidine HCl [facility] 30197875555 Active not defined Aspirin 81 [facility] [address]26 Active not defined Amlodipine ND 0 Active not Besylate defined Atorvastatin [facility] [address]-09 Active not Calcium defined Furosemide [facility] [address]-15 Active not defined Results No Known Results Summary Purpose eClinicalWorks Submission
[2019-11-14] MEDS ORDERED: NA CHLORIDE 0.9% 1,000 ML ONE (02:18)
[2019-11-14] MEDS ORDERED: METOPROLOL TARTRATE 5 MG/5 ML INJ IV ONE (02:18)
[2019-11-14 02:27] LABS: Arterial Blood Carboxyhemoglob 1.1 % (0-1.5); Blood Gas Oxyhemoglobin 86.5 % (94-97); Blood O2 Saturation 88.2 % (92-98.5)
[2019-11-14 02:32] LABS: Absolute Lymphocytes (CBC) 1.1 K/uL (0.7-4.9); Basophils % 0.5 % (0-1.3); Hematocrit 33.6 % (36.0-45.0); Lymphocytes % 4.8 % (15.3-44.8); MPV 8.5 fL (7.6-11.3)
[2019-11-14 02:34] LABS: Protime INR 1.06
[2019-11-14 02:52] LABS: Potassium 5.1 mmol/L (3.5-5.1)
[2019-11-14 03:07] LABS: ALT/SGPT 53 U/L (12-78); AST/SGOT 43 U/L (15-37); Albumin 2.9 g/dL (3.4-5.0); Alkaline Phosphatase 146 U/L (45-117); Bilirubin Direct 0.2 mg/dL (0-0.2); Bilirubin Total 0.7 mg/dL (0.2-1.0); Protein, Total 6.4 g/dL (6.4-8.2); Troponin (Emerg Dept Use Only) < 0.02 ng/mL (0.0-0.045)
[2019-11-14 03:37] LABS: Blood Morphology Comment NOT SEEN (NOT SEEN); Platelet Estimate ADEQ
--- NOTE | 2019-11-14 07:01 | EDPHYS ---
Physician Documentation [facility] Name: Boone Sommer Age: 39 yrs Sex: Female : 1980 Arrival Date: 11/14/2019 Time: 00:48 Bed 18 Private MD: ED Physician Riki Amador HPI: 11/14 04:47 This 39 yrs old Female presents to ER via EMS with unknown complaint. pkl 04:47 The patient has shortness of breath at rest. Onset: The symptoms/episode began/occurred pkl just prior to arrival. Associated signs and symptoms: Pertinent positives: productive cough. 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 - Social history:: Smoking status: . - Ebola Screening: : Patient negative for fever greater than or equal to 101.5 degrees Fahrenheit, and additional compatible Ebola Virus Disease symptoms Patient denies exposure to infectious person. ROS: 04:47 Eyes: Negative for injury, pain, redness, and discharge, ENT: Negative for injury, pkl pain, and discharge, Neck: Negative for injury, pain, and swelling, Cardiovascular: Negative for chest pain, palpitations, and edema. 04:47 Respiratory: Positive for shortness of breath, at rest. 04:47 Abdomen/GI: Negative for abdominal pain, nausea, vomiting, and diarrhea. 04:47 Back: Negative for acute changes. 04:47 : Negative for urinary symptoms. 04:47 MS/extremity: Negative for acute changes. 04:47 Skin: Negative for rash. 04:47 Neuro: Negative for altered mental status. Exam: 04:47 Head/Face: Normocephalic, atraumatic. Eyes: Pupils equal round and reactive to light, pkl extra-ocular motions intact. Lids and lashes normal. Conjunctiva and sclera are non-icteric and not injected. Cornea within normal limits. Periorbital areas with no swelling, redness, or edema. ENT: Nares patent. No nasal discharge, no septal abnormalities noted. Tympanic membranes are normal and external auditory canals are clear. Oropharynx with no redness, swelling, or masses, exudates, or evidence of obstruction, uvula midline. Mucous membranes moist. Neck: Trachea midline, no thyromegaly or masses palpated, and no cervical lymphadenopathy. Supple, full range of motion without nuchal rigidity, or vertebral point tenderness. No Meningismus. Chest/axilla: Normal chest wall appearance and motion. Nontender with no deformity. No lesions are appreciated. Cardiovascular: Regular rate and rhythm with a normal S1 and S2. No gallops, murmurs, or rubs. Normal PMI, no JVD. No pulse deficits. 04:47 Respiratory: the patient does not display signs of respiratory distress, Respirations: normal, Breath sounds: rales, that are mild, are scattered. 04:47 Abdomen/GI: Bowel sounds: normal, Palpation: abdomen is soft and non-tender. 04:47 Back: Exam negative for acute changes. 04:47 : Exam negative for acute changes. 04:47 Musculoskeletal/extremity: Exam is negative for acute changes. 04:47 Skin: Exam negative for rash. 04:47 Neuro: Orientation: is normal, Mentation: is normal, Cranial nerves: grossly normal, Motor: is normal. Vital Signs: 00:52 BP 156 / 110; Pulse 93; Resp 20; Temp 97.4; Pulse Ox 96% on Venturi mask; Weight 104.33 wh kg; Height 5 ft. 3 in. (160.02 cm); 02:30 BP 142 / 104; Pulse 84; Resp 18; Pulse Ox 95% 2 lpm ; wh 03:30 BP 146 / 83; Pulse 67; Resp 20; Pulse Ox 95% on 2 lpm NC; wh 04:30 BP 153 / 95; Pulse 88; Resp 18; Pulse Ox 96% on 2 lpm NC; wh 06:00 BP 150 / 107; Pulse 93; Resp 18; Pulse Ox 98% on 2 lpm NC; 06:45 BP 142 / 99; Pulse 93; Resp 18; Pulse Ox 97% on 2 lpm NC; wh 07:00 BP 144 / 91; Pulse 98; Resp 17; Pulse Ox 98% ; bp 07:44 BP 152 / 90; Pulse 92; Resp 19; Pulse Ox 99% ; bp 00:52 Body Mass Index 40.74 (104.33 kg, 160.02 cm) MDM: 01:53 Patient medically screened. pkl 06:54 Data reviewed: vital signs, nurses notes, lab test result(s), EKG, radiologic studies, pkl CT scan, plain films. ED course: Talked to Dr. Pepe, admit to Dr. Morales. 11/14 01:57 Order name: Basic Metabolic Panel; Complete Time: 04:01 pkl 11/14 01:57 Order name: CBC with Diff; Complete Time: 04:01 pkl 11/14 01:57 Order name: LFT's; Complete Time: 03:09 pkl 11/14 01:57 Order name: Magnesium; Complete Time: 03:09 pkl 11/14 01:57 Order name: NT PRO-BNP; Complete Time: 04:01 pkl 11/14 01:57 Order name: PT-INR; Complete Time: 03:08 pkl 11/14 01:57 Order name: Troponin (emerg Dept Use Only); Complete Time: 03:09 pk 11/14 01:57 Order name: D-Dimer; Complete Time: 03:08 pk 11/14 01:57 Order name: ABG; Complete Time: 02:41 pkl 11/14 02:48 Order name: Manual Differential; Complete Time: 04:01 EDNY 11/14 04:02 Order name: Blood Culture Adult (2) pkl 11/14 04:02 Order name: Lactate; Complete Time: 06:16 pkl 11/14 04:02 Order name: Procalcitonin; Complete Time: 06:16 pkl 11/14 07:24 Order name: Basic Metabolic Panel EDNY 11/14 01:57 Order name: XRAY Chest (1 view) pk 11/14 01:57 Order name: EKG; Complete Time: 01:58 pkl 11/14 01:57 Order name: Cardiac monitoring; Complete Time: 02:02 pkl 11/14 01:57 Order name: EKG - Nurse/Tech; Complete Time: 02:02 pkl 11/14 01:57 Order name: IV Saline Lock; Complete Time: 02:02 pkl 11/14 01:57 Order name: Labs collected and sent; Complete Time: 02:02 pkl 11/14 04:46 Order name: CT Chest Wo Con pkl 11/14 07:24 Order name: CONS Physician Consult EDMS 11/14 07:24 Order name: CONS Physician Consult EDMS 11/14 07:24 Order name: Basic Metabolic Panel EDMS 11/14 07:24 Order name: CBC with Automated Diff EDMS 11/14 07:24 Order name: CBC with Automated Diff EDMS 11/14 07:25 Order name: Renal EDMS 11/14 14:23 Order name: CT EDMS 11/14 01:57 Order name: O2 Per Protocol; Complete Time: 02:02 pkl 11/14 01:57 Order name: O2 Sat Monitoring; Complete Time: 02:02 pkl Administered Medications: 02:30 Drug: NS 0.9% 1000 ml Route: IV; Rate: 100 ml/hr; Site: PICC; 02:35 Drug: Lopressor 5 mg Route: IVP; Site: PICC; 08:30 Follow up: Response: No adverse reaction bp Disposition: 11/14/19 07:00 Hospitalization ordered by Jak Morales for Inpatient Admission. Preliminary diagnosis is Acute dyspnea. Bilateral pleural effusions. Pericardial effusion. Leukocytosis. Chronic renal disease. - Bed requested for Telemetry/MedSurg (Inpatient). - Status is Inpatient Admission. bp - Condition is Stable. - Problem is new. - Symptoms are unchanged. UTI on Admission? No Signatures: Dispatcher [employer] [facility] Riki Amador MD MD pkl Habalo, Winsy wh Peltier, Brian, RN RN Hortensia Mantilla Corrections: (The following items were deleted from the chart) 08:52 07:00 Hospitalization Ordered by Jak Morales MD for Inpatient Admission. Preliminary eb diagnosis is Acute dyspnea. Bilateral pleural effusions. Pericardial effusion. Leukocytosis. Chronic renal disease. Bed requested for Telemetry/MedSurg (Inpatient). Status is Inpatient Admission. Condition is Stable. Problem is new. Symptoms are unchanged. UTI on Admission? No. pkl 14:02 08:52 11/14/2019 07:00 Hospitalization Ordered by Jak Morales MD for Inpatient eb Admission. Preliminary diagnosis is Acute dyspnea. Bilateral pleural effusions. Pericardial effusion. Leukocytosis. Chronic renal disease. Bed requested for [facility] ER HOLD. Status is Inpatient Admission. Condition is Stable. Problem is new. Symptoms are unchanged. UTI on Admission? No. eb 15:24 14:02 11/14/2019 07:00 Hospitalization Ordered by Jak Morales MD for Inpatient bp Admission. Preliminary diagnosis is Acute dyspnea. Bilateral pleural effusions. Pericardial effusion. Leukocytosis. Chronic renal disease. Bed requested for Telemetry/MedSurg (Inpatient). Status is Inpatient Admission. Condition is Stable. Problem is new. Symptoms are unchanged. UTI on Admission? No. eb
--- NOTE | 2019-11-14 07:01 | ER ---
Nurse's Notes [facility] Name: Boone Sommer Age: 39 yrs Sex: Female : 1980 Arrival Date: 11/14/2019 Time: 00:48 Bed 18 Private MD: Diagnosis: Acute dyspnea. Bilateral pleural effusions. Pericardial effusion. Leukocytosis. Chronic renal disease Presentation: 11/14 00:49 Presenting complaint: EMS states: PT toned for shortness of breath and difficulty of wh breathing while sleeping. Transition of care: patient was not received from another setting of care. Onset of symptoms was November 14, 2019. Risk Assessment: Do you want to hurt yourself or someone else? Patient reports no desire to harm self or others. Initial Sepsis Screen: Does the patient meet any 2 criteria? HR > 90 bpm. Does the patient have a suspected source of infection?. Care prior to arrival: Medication(s) given: Albuterol Neb Atrovent Neb x 2, Solumederol 125 IM Med neb given. Oxygen administered. via CPAP or BiPAP. 00:49 Method Of Arrival: EMS: [facility] 00:49 Acuity: [place] 3 TRANSFER MAN: 01:00 LMP N/A - Hysterectomy Historical: - Allergies: 00:58 No Known Allergies; wh - PMHx: 00:58 "small right kidney"; CAD; Depression; High Cholesterol; Hypertension; Kidney disease stage 2; Anxiety; - PSHx: 00:58 Cholecystectomy; Hysterectomy; - Immunization history:: Adult Immunizations not up to date. - Social history:: Smoking status: . - Ebola Screening: : Patient negative for fever greater than or equal to 101.5 degrees Fahrenheit, and additional compatible Ebola Virus Disease symptoms Patient denies exposure to infectious person. Screenin:54 Abuse screen: Denies threats or abuse. Denies injuries from another. Nutritional screening: No deficits noted. Tuberculosis screening: No symptoms or risk factors identified. Fall Risk None identified. Assessment: 01:00 General: Appears in no apparent distress. Behavior is calm, cooperative, appropriate wh for age. Pain: Denies pain. Neuro: Level of Consciousness is awake, alert, obeys commands. Cardiovascular: Heart tones S1 S2 Rhythm is regular. Cardiovascular: Dialysis shunt: in the anterior aspect of right upper chest. Respiratory: Reports shortness of breath at rest labored breathing Airway is patent Respiratory effort is even, unlabored, Respiratory pattern is regular, symmetrical, Breath sounds with rales bilaterally. Breath sounds with rhonchi bilaterally. GI: Abdomen is flat, non-distended. GI: Abdomen is flat, non-distended. : No signs and/or symptoms were reported regarding the genitourinary system. EENT: No signs and/or symptoms were reported regarding the EENT system. Derm: Skin is intact, is healthy with good turgor, Skin is pink, warm \\T\\ dry. normal. Musculoskeletal: Circulation, motion, and sensation intact. 02:05 Reassessment: Patient appears in no apparent distress at this time. No changes from previously documented assessment. Patient and/or family updated on plan of care and expected duration. Pain level reassessed. Patient is alert, oriented x 3, equal unlabored respirations, skin warm/dry/pink. 03:05 Reassessment: Patient appears in no apparent distress at this time. No changes from previously documented assessment. Patient and/or family updated on plan of care and expected duration. Pain level reassessed. Patient is alert, oriented x 3, equal unlabored respirations, skin warm/dry/pink. Patient states feeling better. Patient states symptoms have improved. 04:26 Reassessment: Patient appears in no apparent distress at this time. No changes from previously documented assessment. Patient and/or family updated on plan of care and expected duration. Pain level reassessed. Patient is alert, oriented x 3, equal unlabored respirations, skin warm/dry/pink. 06:25 Reassessment: Patient appears in no apparent distress at this time. No changes from previously documented assessment. Patient and/or family updated on plan of care and expected duration. Pain level reassessed. Patient is alert, oriented x 3, equal unlabored respirations, skin warm/dry/pink. Pt sleeping well no signs of distress noted. 07:00 Reassessment: RECD REPORT FROM BERKLEY DODD. 39YO WF P/W SOB, EXTENSIVE HX. PT ADMITTED FOR bp BILATERAL PLEURAL EFFUSION AND PERICARDIAL EFFUSION. 07:43 Reassessment: PT SEEN BY DR MUHAMMAD, CARD C/S. ADMIT IN PROCESS. PT MAINTAINING SAT bp ABOVE 90 ON 2LNC. Vital Signs: 00:52 BP 156 / 110; Pulse 93; Resp 20; Temp 97.4; Pulse Ox 96% on Venturi mask; Weight 104.33 wh kg; Height 5 ft. 3 in. (160.02 cm); 02:30 BP 142 / 104; Pulse 84; Resp 18; Pulse Ox 95% 2 lpm ; wh 03:30 BP 146 / 83; Pulse 67; Resp 20; Pulse Ox 95% on 2 lpm NC; wh 04:30 BP 153 / 95; Pulse 88; Resp 18; Pulse Ox 96% on 2 lpm NC; wh 06:00 BP 150 / 107; Pulse 93; Resp 18; Pulse Ox 98% on 2 lpm NC; wh 06:45 BP 142 / 99; Pulse 93; Resp 18; Pulse Ox 97% on 2 lpm NC; wh 07:00 BP 144 / 91; Pulse 98; Resp 17; Pulse Ox 98% ; bp 07:44 BP 152 / 90; Pulse 92; Resp 19; Pulse Ox 99% ; bp 00:52 Body Mass Index 40.74 (104.33 kg, 160.02 cm) ED Course: 00:48 Patient arrived in ED. wh 00:49 Berkley Starr is Primary Nurse. wh 00:52 Triage completed. wh 00:54 Accessed PICC line. 01:00 Patient has correct armband on for positive identification. Placed in gown. Bed in low wh position. Call light in reach. Side rails up X 1. photocopying machine operator on. Pulse ox on. NIBP on. 01:00 Arm band placed on right wrist. wh 01:52 Riki Amador MD is Attending Physician. pkl 02:17 XRAY Chest (1 view) In Process Unspecified. EDMS 05:49 CT Chest Wo Con In Process Unspecified. EDMS 06:56 Jak Morales MD is Hospitalizing Provider. pkl 07:07 Primary Nurse role handed off by Berkley Starr bp 07:07 Braxton Bishop, RN is Primary Nurse. bp 11:13 Note: ct order change per keely early nurse. ct exam to be done w/ po \\T\\ iv contrast. bq 11:19 Note: po contrast d/o \\T\\ 11;!5 with instructions to pt to notify nurse when finished bq drinking. 13:18 CT completed. Patient tolerated procedure well. Patient moved back from CT. bq Administered Medications: 02:30 Drug: NS 0.9% 1000 ml Route: IV; Rate: 100 ml/hr; Site: PICC; 02:35 Drug: Lopressor 5 mg Route: IVP; Site: PICC; 08:30 Follow up: Response: No adverse reaction bp Outcome: 07:00 Decision to Hospitalize by Provider. pkl 15:24 Patient left the ED. bp Signatures: Dispatcher [employer] EDMS Riki Amador MD MD pkDelilah Figueroa Winsy Braxton Bishop, RN RN bp
--- NOTE | 2019-11-14 07:33 | RAD REPORT ---
EXAM DESCRIPTION: Danish Single View11/14/2019 2:16 am CLINICAL HISTORY: Shortness of breath COMPARISON: November 06, 2019 FINDINGS: Mild bilateral pulmonary opacities. Small pleural effusions. The heart is mildly enlarged . A central venous line remains in place. A PICC line has its tip in the superior vena cava IMPRESSION: Mild bilateral pulmonary opacities probably mild pulmonary edema Small bilateral pleural effusions
[2019-11-14] MEDS ORDERED: NA CHLORIDE 0.9% 1,000 ML IV SCH (08:00)
[2019-11-14] MEDS ORDERED: CEFTRIAXONE/SWI 1gm 1 GM/10 ML SYR IVP SCH (09:00)
--- NOTE | 2019-11-14 10:30 | P.HP ---
Certification for Inpatient Patient admitted to: Inpatient With expected LOS: >2 Midnights Practitioner: I am a practitioner with admitting privileges, knowledge of patient current condition, hospital course, and medical plan of care. Services: Services provided to patient in accordance with Admission requirements found in Title 42 Section 412.3 of the Code of Federal Regulations Patient History Date of Service: 11/14/19 Reason for admission: WORSENED DYSPNEA History of Present Illness: MS. SANZ HAS HAD A COMPLICATED INPATIENT ADMISSION RECENTLY WITH CHOLECYSTITIS, CHOLECYSTECTOMY FOLLOWED BY ACUTE RENAL FAILURE FROM DYE, NOW ON HD. SHE ALSO HAD ELEVATION OF WBC COUNT DESPITE INITIALLY MEFOXIN AND LATER CIPRO AND FLAGYL. WBC WENT UP TO 30K DESPITE ABX. SHE LATER IMPROVED ON MERREM DOWN TO 15K. WE HAD NO SOURCE OF INFECTION AT THAT TIME. SHE WENT HOME ON IV ABX SHE INSISTED TO. HER WBC WAS 17K AT DISCHARGE. SHE CAME TO OFFICE A FEW DAYS AGO WITH DYSPNEA. I ASKED HER TO DO CHEST X RAY AND LAB BUT SHE DID NOT DO IT. SHE NOW COMES TO ER WITH DYSPNEA THAT IS WORSE. SHE HAS FLUID OVERLOAD ON CXR AND CT SCAN. I TALKED TO DR. ARELLANO ALREADY. SHE STILL DOES NOT HAVE ANY SYMPTOM OF INFECTION ANYWHERE. Allergies No Known Allergies Allergy (Verified 09/03/18 19:43) Home Medications: Escitalopram Oxalate [Lexapro] 10 mg PO DAILY 09/03/18 Atorvastatin Calcium [Lipitor] 40 mg PO BEDTIME 10/29/19 Carvedilol [Coreg] 25 mg PO BID 10/29/19 Clopidogrel Bisulfate [Plavix*] 75 mg PO DAILY 10/29/19 Valacyclovir [Valtrex] 500 mg PO DAILY #5 tab 11/06/19 - Past Medical/Surgical History Diabetic: No -: hypertensive -: kidney disease -: depression -: hyperlipidemia -: hysterectemoy -: cyst removal on vaginal area - Social History Alcohol use: Yes CD- Drugs: No Caffeine use: Yes Review of Systems 10-point ROS is otherwise unremarkable Physical Examination - Vital Signs Temperature: 97.8 F Blood Pressure: 145/90 Pulse: 93 Respirations: 16 Pulse Ox (%): 97 - Physical Exam General: Alert, In no apparent distress, Obese, Other (PICC LINE L SIDE ARM. ) HEENT: Atraumatic, PERRLA, Mucous membr. moist/pink, EOMI, Sclerae nonicteric Neck: Supple, 2+ carotid pulse no bruit, No LAD, Without JVD or thyroid abnormality Respiratory: Clear to auscultation bilaterally, Normal air movement Cardiovascular: Regular rate/rhythm, Normal S1 S2 Gastrointestinal: Normal bowel sounds, No tenderness Musculoskeletal: No tenderness Integumentary: No rashes Neurological: Normal gait, Normal speech, Normal strength at 5/5 x4 extr, Normal tone, Normal affect Lymphatics: No axilla or inguinal lymphadenopathy - Studies Laboratory Data (last 24 hrs) 11/14/19 02:05: PT 12.5, INR 1.06 11/14/19 02:05: Magnesium 2.0, Total Bilirubin 0.7, AST 43 H, ALT 53, Alkaline Phosphatase 146 H 11/14/19 02:05: WBC 23.8 H* D, Hgb 11.4 L, Hct 33.6 L, Plt Count 365 D 11/14/19 02:05: Sodium 137, Potassium 5.1, BUN 31 H, Creatinine 7.23 H*, Glucose 107 H Assessment and Plan - Problems (Diagnosis) (1) CKD (chronic kidney disease) stage 5, GFR less than 15 ml/min Current Visit: Yes Status: Acute Plan: SHE HAS THIS FROM IV DYE SINCE LAST ADMISSSION. CERAMIC ARTIST WILL ADJUST THE FLUID REMOVAL. HER BP IS HIGH ALSO FROM THE SAME ISSUE. I SUSPECT ONCE HD IS ADJUSTED BP WILL COME DOWN. STOP IV FLUIDS. (2) Leukocytosis Current Visit: Yes Status: Chronic Plan: I SEE NO SOURCE OF INFECTION. REMOVE PICC LINE WHEN WE HAVE OTHER IV ACCESS. WATCH DAILY LAB. BC [address] ABDOMEN WITH CONTRAST- APPROVED BY DR. GREENWOOD ALREADY. STABLE CLINICALLY TO WATCH WBC DAILY. I SEE NO REASON TO GIVE ABX UNLESS WE HAVE SOURCE OF INFECTION. - Advance Directives Does patient have a Living Will: No Does patient have a Durable POA for Healthcare: No
--- NOTE | 2019-11-14 14:21 | RAD REPORT ---
EXAM DESCRIPTION: CT - Abdomen Pelvis W Contrast - 11/14/2019 1:21 pm CLINICAL HISTORY: Abdominal pain. COMPARISON: 2017 TECHNIQUE: Computed axial tomography of the abdomen and pelvis was obtained. 100 cc Isovue-300 is ad ministered intravenously. Oral contrast was given. All CT scans are performed using dose optimization technique as appropriate and may include automated exposure control or mA/KV adjustment according to patient size. FINDINGS: A left renal arterial stent is in place. The left kidney demonstrates markedly diminished concentration of contrast. . There is markedly dimin ished opacification of the left renal artery. The density of the left renal artery is inhomogeneous. The liver, spleen, pancreas, adrenals and right kidney appear unremarkable. The appendix is normal caliber. There is no evidence of diverticulitis Small pleural effusions with bibasilar atelectasis Small amount of ascites Short segment narrowing involves the rectosigmoid colon IMPRESSION: Markedly diminished blood flow to the left kidney The density of the left kidney is heterogeneous which could indicate infarction superimposed over re nal arterial occlusion Short-segment narrowing of the rectosigmoid colon could be secondary to mass or incomplete distention
[2019-11-14] MEDS: ACETAMINOPHEN 325 MG TABLET PO PRN (18:43)
[2019-11-14] MEDS: carvediloL 25 MG TAB PO SCH (23:20)
--- NOTE | 2019-11-15 00:18 | CON ---
Date of Consultation: 11/14/2019 Reason For Consultation: Elevated BUN and creatinine, over-volume. History Of Present Illness: This is a pleasant 39-year-old female, well known to me from previous ad mission with significant past medical history of hypertension, acute kidney injury secondary to contr ast-induced nephropathy, recently started on dialysis, questionable of renal artery stenosis, coronar y artery disease. The patient came to the hospital complaining of shortness of breath, especially at night with chest tightness without any orthopnea. Primary workup including the CT showing anasarca with pericardial effusion. We have been consulted because of over-volume, elevated BUN and creatinin e. Allergies: NO KNOWN DRUG ALLERGIES. Social History: Active smoker, active alcohol, denies drug abuse. Family History: Positive for hypertension. Past Medical History: Include hypertension, chronic kidney disease, hyperlipidemia, renal artery gaby nosis, cervical cyst, acute kidney injury, dialysis dependent. Medications: Home medications include carvedilol 25 b.i.d., atorvastatin, Plavix, valacyclovir. Current Medications in the hospital include, amlodipine, atorvastatin, and Plavix. Physical Examination: Vital Signs: When I saw the patient, blood pressure of 142/89, pulse of 88. Chest: Crackles, bilateral base. Heart: S1, S2, regular. Abdomen: Soft. Nontender. Extremities: Trace edema. Neurologic: Alert and oriented x3, nonfocal. Laboratory Data: WBC 23.8, H and H 11.4 and 33.6, and platelets 365 with shift on the neutrophil. S odium 137, potassium 5.1, bicarb 25, BUN 31, creatinine 7.2, calcium 8.2. LFT within normal limits. BNP 77,000. PTH 179. Urinalysis was not done yet. Chest x-ray, cardiomegaly. Assessment And Plan: 1.Chronic kidney disease with acute kidney injury secondary to contrast-induced nephropathy still ov er-volume. I am going to arrange for dialysis today. We will challenge the patient. 2.Fever, unknown source. 3.History of cholecystitis with cholecystectomy. I am going to go ahead and send for culture from [facility] to evaluate if there is any line infection. Agree with removal of the PICC line and we w ill follow up. 4.Hypertension, controlled, optimal. We will utilize the blood pressure for more ultrafiltration. 5.Over-volume, we will challenge the patient. 6.Hyperkalemia. The patient is going to be dialyzed on low-potassium bath. 7.Anemia of chronic kidney disease. We will continue to monitor. No need for VAL right now. 8.Leukocytosis, unknown etiology. I agree with current workup, removal of the PICC line. I am dusty g to send for culture through the catheter and we will follow up the patient. 9.Chronic obstructive pulmonary disease with possible exacerbation by primary. LAUREN/KIA Voice ID: [id number] Report ID: [id number]
[2019-11-15] MEDS: ACETAMINOPHEN 325 MG TABLET PO PRN (00:52)
[2019-11-15 04:41] VITALS: BMI 39.7
[2019-11-15 05:56] LABS: Absolute Lymphocytes (CBC) 1.6 K/uL (0.7-4.9); Basophils % 0.1 % (0-1.3); Hematocrit 28.5 % (36.0-45.0); MPV 8.8 fL (7.6-11.3); RBC Red Blood Cell Count 3.31 M/uL (3.86-4.86)
[2019-11-15 06:16] LABS: Potassium 3.7 mmol/L (3.5-5.1)
[2019-11-15] MEDS ORDERED: CLOPIDOGREL 75 MG TABLET PO SCH (09:00)
[2019-11-15] MEDS ORDERED: ESCITALOPRAM 20 MG TAB PO SCH (09:00)
[2019-11-15] MEDS ORDERED: AMLODIPINE 5 MG TAB PO SCH (09:00)
[2019-11-15] MEDS: carvediloL 25 MG TAB PO SCH ×2 (09:06→21:31)
--- NOTE | 2019-11-15 10:48 | P.PN ---
Subjective Date of Service: 11/15/19 Chief Complaint: FEELING GREAT NOW Subjective: Improving MS. SANZ IS FEELING GREAT. SHE HAS NO PAIN, NO FEVER, NO COUGH, NO DIARREHA ETC. SHE IS NOT DYSPNEIC ANY LONGER. Review of Systems 10-point ROS is otherwise unremarkable Physical Examination - Vital Signs Temperature: 98.9 F Blood Pressure: 176/101 Pulse: 95 Respirations: 18 Pulse Ox (%): 95 - Physical Exam General: Alert, In no apparent distress, Obese HEENT: Atraumatic, PERRLA, EOMI Neck: Supple, JVD not distended Respiratory: Clear to auscultation bilaterally, Normal air movement Cardiovascular: Regular rate/rhythm, Normal S1 S2 Gastrointestinal: Normal bowel sounds, No tenderness Musculoskeletal: No tenderness Integumentary: No rashes Neurological: Normal speech, Normal tone, Normal affect Lymphatics: No axilla or inguinal lymphadenopathy - Studies Medications List Reviewed: Yes Assessment And Plan - Current Problems (Diagnosis) (1) CKD (chronic kidney disease) stage 5, GFR less than 15 ml/min Current Visit: Yes Status: Acute Plan: SHE HAS THIS FROM IV DYE SINCE LAST ADMISSSION. HOSPICE ENTRANCE ATTENDANT WILL ADJUST THE FLUID REMOVAL. HER BP IS HIGH ALSO FROM THE SAME ISSUE. I SUSPECT ONCE HD IS ADJUSTED BP WILL COME DOWN. STOP IV FLUIDS. HD ADJUSTMENTS ARE BEING DONE BY DR. GREENWOOD. (2) Leukocytosis Current Visit: Yes Status: Chronic Plan: I SEE NO SOURCE OF INFECTION. REMOVE PICC LINE WHEN WE HAVE OTHER IV ACCESS. WATCH DAILY LAB. BC [address] ABDOMEN WITH CONTRAST- APPROVED BY DR. GREENWOOD ALREADY. STABLE CLINICALLY TO WATCH WBC DAILY. I SEE NO REASON TO GIVE ABX UNLESS WE HAVE SOURCE OF INFECTION. WBC IS DOWN TO 16 K WITHUT ANY ANTIBIOTICS. ONCE AGAIN THERE IS NO SOURCE OF INFECTION. RENAL INFARCT FROM RENAL ARTERY STENOSIS MAY OR MAY NOT HAVE ANYTHING TO DO WITH LEUKOCYTOSIS. IT DOES NOT NEED ANY TREATMENT BUT JUST SUPERVISION. (3) Uncontrolled hypertension Current Visit: Yes Status: Chronic Plan: ADD CLONIDINE I WILL ASK DR. LONDON IF WE CAN ADD BACK ARB. AMIE IS ALREADY ON B JOHANNA. CALCIUM CHANNEL JOHANNA AND NOW ALPHA JOHANNA PRN. CLONIDINE MAKES HER SLEEPY. (4) Renal artery stenosis Current Visit: Yes Status: Chronic Plan: STENT HAS BEEN PLACED AND THE RENAL INFARCT MAY BE SECONDARY TO THE STENT AND DOES NOT NEED ANY FURTHER ACTION.
--- NOTE | 2019-11-15 14:01 | EKG ---
Test Date: 2019-11-14 Test Time: 00:58:45 Vice President And Portfolio Manager: SCOTT MEASUREMENT RESULTS: Intervals: Rate: 88 OK: 188 QRSD: 98 QT: 404 QTc: 488 [place]: P: 36 OK: 188 QRS: 2 T: 58 INTERPRETIVE STATEMENTS: Normal sinus rhythm Possible Left atrial enlargement Prolonged QT Abnormal ECG Compared to ECG 10/29/2019 03:38:35 Prolonged QT interval now present Sinus tachycardia no longer present Electronically Signed On 11-15-19 13:59:15 INDUSTRIAL RELATIONS DIRECTOR by Romario Tyler
[2019-11-15] MEDS ORDERED: HEPARIN/D5W 25,000 UNIT/500 ML BAG IV SCH (15:00)
[2019-11-15] MEDS ORDERED: HEPARIN 5000 UNIT/ML 1 ML VIAL IV ONE (15:00)
--- NOTE | 2019-11-15 15:06 | RAD REPORT ---
EXAM DESCRIPTION: US - Extrem Venous W Compress Raymundo - 11/15/2019 2:38 pm CLINICAL HISTORY: Bilateral leg pain and swelling COMPARISON: None. TECHNIQUE: Real-time sonographic evaluation of the bilateral lower extremity common femoral, superfi cial femoral, popliteal and posterior tibial veins was performed. FINDINGS: Normal compressibility, flow augmentation, phasic flow and spontaneous flow are identified in the left and right lower extremity common femoral, superficial femoral, popliteal and posterior t ibial veins. No intraluminal filling defects seen. IMPRESSION: No DVT in either lower extremity.
[2019-11-15] MEDS: cloNIDine HCL 0.1 MG TAB PO PRN ×2 (16:03→23:33)
--- NOTE | 2019-11-15 18:33 | PN ---
Date of Progress Note: 11/15/2019 History: The patient was admitted with over volume, status post dialysis yesterday. Patient tolerat ed the dialysis very well. We managed to remove 3 L. Physical Examination: Vital Signs: Blood pressure 168/79, pulse of 88. Patient still have good urine output. Chest: Decreased air entry, bilateral base. Heart: S1, S2. Systolic murmur. Abdomen: Soft, nontender. Extremities: Trace edema. Laboratory Data: WBC 16, H and H 9.6/28.5, platelets 358. Sodium 140, potassium 3.7, bicarb 28, BUN 23, creatinine 5.2, calcium 8.1. Urine not done. CT of abdomen showing renal infarction. Current Medications: 1.Plavix. 2.Norvasc. 3.Carvedilol. 4.Clonidine. 5.Citalopram. Assessment And Plan: 1.Acute kidney injury, dialysis dependent. We will continue dialysis. 2.Renal infarction and renal artery stenosis. I am going to continue the patient to be monitored cl osely. Given the recent infarction, patient is going to need evaluation by Vascular as this infarcti on happened on renal stent. I am going to go ahead and arrange for transfer to other facility for va scular surgeon. 3.Over volume. We will continue to challenge the patient. I am going to arrange for dialysis rosalio friedman. LAUREN/KIA Voice ID: [id number] Report ID: [id number]
--- NOTE | 2019-11-15 20:25 | CON ---
Date of Consultation: 11/14/2019 Reason For Consultation: Volume overload with congestive heart failure, renal failure. History Of Present Illness: Ms. Sommer is a 39-year-old who has a history of coronary artery disease i n the past. Has had a history of renal artery disease. She is status post left renal stent not long ago. She also has a history of a small right kidney, has hypertension, dyslipidemia, anxiety, just recently started dialysis. Came in with shortness of breath, was felt to have bilateral pleural effu beth and a possible pericardial effusion. Denied chest pain, nausea, vomiting. She had some diaphor esis. Denied any fevers or chills. She denied any palpitations or syncope. Denied any pedal edema. Past Medical History: As stated above. Allergies: NONE. Review of Systems: Negative. Social History: Negative. Family History: Negative. Medications: At home include Valtrex, Coreg, Lexapro, Plavix, and Lipitor. Physical Examination: Vital Signs: Her initial blood pressure was 141/82. She was in a sinus rhythm, afebrile. HEENT: Negative. Neck: Supple with no bruits. Chest: Revealed decreased breath sounds bilaterally. Cardiac: Revealed a regular rhythm and rate. No murmurs, gallops, or rubs. Abdomen: Benign. Extremities: Revealed trace edema. Diagnostic Data: Showed a pO2 of 53, pCO2 of 31, pH of 7.47. Her creatinine was 7.23, white count w as 23,000. Her BNP was 77,805. D-dimer was 6169. Impression And Plan: 1.Volume overload, most likely secondary to acute on chronic renal failure. 2.History of coronary artery disease status post stents in the past. 3.History of renal disease status post left renal stent. 4.Elevated troponin, hypoxia, elevated BNP and D-dimer. I think that these are all secondary to landy al failure. She is presently on Coreg, Norvasc, Lipitor, heparin. Clonidine was added and she is on Plavix. Echocardiogram is pending for Saturday. Nephrology consultation is pending. She may need to be dialyzed today. NB/MODL Voice ID: [id number] Report ID: [id number]
[2019-11-15 20:45] VITALS: TEMP 97.4
[2019-11-15] MEDS ORDERED: ATORVASTATIN 40 MG TAB PO SCH (21:00)
--- NOTE | 2019-11-15 21:31 | PN ---
Date of Progress Note: 11/15/2019 Ms. Sommer was admitted on 11/14/2019 with volume overload. It was felt to have a creatinine of 7.23. Volume overload secondary to kidney failure, acute on chronic. She got dialyzed yesterday and she i s feeling back to normal. Her white count was improved. Her blood pressure remains slightly elevate d. She is now on Norvasc, Coreg, and a clonidine patch. She remains on Plavix, Lipitor. Workup so far was positive for possible restenosis of her left renal artery. There is the plan for her to go b ack to her physician who actually placed the renal artery stent in [place]. Arrangement has been made by Nephrology. No further plan from a cardiac standpoint. She stays here in the morning. We w ill get an echocardiogram to rule out pericardial effusion. ELIZABETH/MODL Voice ID: [id number] Report ID: [id number]
[2019-11-15 23:34] VITALS: BP 175/100
[2019-11-16 00:50] VITALS: O2SAT 94
--- NOTE | 2019-11-16 15:45 | RAD REPORT ---
EXAM DESCRIPTION: CT - Thorax Wo Mahesh - 11/14/2019 7:29 am CLINICAL HISTORY: The patient is 39 years old and is Female; dyspnea TECHNIQUE: Axial computed tomography images of the chest without intravenous contrast. Sagittal an d coronal reformatted images were created and reviewed. This CT exam was performed using one or mor e of the following dose reduction techniques: automated exposure control, adjustment of the mA and/ or kV according to patient size, and/or use of iterative reconstruction technique. COMPARISON: CT of the chest October 29, 2019 FINDINGS: LUNGS: Bilateral lower lobe dependent atelectasis is present. Mild diffuse septal thic kening is noted. Subtle scattered groundglass opacities are present. The appearance is similar to chris or exam. PLEURAL SPACE: Interval increase in the bilateral pleural effusions is noted, now moderate. No pneumothorax. HEART: A small pericardial effusion is present which is new. BONES/JOINTS: No acute fracture. SOFT TISSUES: Mild diffuse body wall edema is present. VASCULATURE: A right IJ Vas-Cath is present with the tip in the SVC. No thoracic aortic aneury sm. LYMPH NODES: Unremarkable. No enlarged lymph nodes. IMPRESSION: 1. Interval worsening in the bilateral pleural effusions with development of a pericar dial effusion suggesting worsening volume status. This is compared to prior CT of the chest October. The examination performed on November 01, 2019 is not available for review. 2. Dependent atelectasis within the lung bases. 3. Persistent mild groundglass opacities and septal thickening which again suggested edematous proc ess. Electronically signed by: Falguni Colunga MD 11/14/2019 6:38 AM HIDE PASTER Due to temporary technical issues with the PACS/Fluency reporting system, reports are being signed by the in house radiologist as a courtesy to ensure prompt reporting. The interpreting radiologist is f ully responsible for the content of the report.
--- NOTE | 2019-11-16 20:23 | P.DS ---
Admission Date: 11/14/19 Discharge Date: 11/16/19 Disposition: TRANSFER TO [facility] Discharge Condition: FAIR Reason for Admission: FEELING GREAT NOW - Problems (1) CKD (chronic kidney disease) stage 5, GFR less than 15 ml/min Status: Acute (2) Leukocytosis Status: Chronic (3) Uncontrolled hypertension Status: Chronic (4) Renal artery stenosis Status: Chronic Brief History of Present Illness: MS. SANZ HAS HAD A COMPLICATED INPATIENT ADMISSION RECENTLY WITH CHOLECYSTITIS, CHOLECYSTECTOMY FOLLOWED BY ACUTE RENAL FAILURE FROM [facility], NOW ON HD. SHE ALSO HAD ELEVATION OF WBC COUNT DESPITE INITIALLY MEFOXIN AND LATER CIPRO AND FLAGYL. WBC WENT UP TO 30K DESPITE ABX. SHE LATER IMPROVED ON MERREM DOWN TO 15K. WE HAD NO SOURCE OF INFECTION AT THAT TIME. SHE WENT HOME ON IV ABX SHE INSISTED TO. HER WBC WAS 17K AT DISCHARGE. SHE CAME TO OFFICE A FEW DAYS AGO WITH DYSPNEA. I ASKED HER TO DO CHEST X RAY AND LAB BUT SHE DID NOT DO IT. SHE NOW COMES TO ER WITH DYSPNEA THAT IS WORSE. SHE HAS FLUID OVERLOAD ON CXR AND CT SCAN. I TALKED TO DR. ARELLANO ALREADY. SHE STILL DOES NOT HAVE ANY SYMPTOM OF INFECTION ANYWHERE. Hospital Course: MS. SANZ DID WELL WITH HD. SHE IS VERY ASYMPTOMATIC NOW. I ORDERED CT ABDOMEN AND PELVIS WITH CONTRAST FOR EVAL OF LEUKOCYTOSIS. IT SHOWED RENAL INFARCT. I SUSPECT THIS WILL BE CHOLESTEROL EMBOLI FROM THE STENT PLACEMENT ITSELF. HER WBC COUNT CAME DOWN WTIHOUT ANY ANTIBIOTICS. IS SUSPET LEUKOCYTOSIS IS FROM NONINFECTIOUS CAUSE LIKE INFARCT, ACUTE FLUID OVER LOAD ETC. I SUSPET SHE IS ASYMPTOMATIC SHE MAY NOT NEED ANY INTERVENTION FROM VASCULAR SURGEON BUT DR. ARELLANO HAS TRANSFERRED HER FOR HIS OPINION. Vital Signs/Physical Exam: Temp Pulse Resp BP Pulse Ox 97.4 F 83 16 175/100 H 94 11/15/19 20:00 11/15/19 23:33 11/15/19 20:00 11/15/19 23:33 11/15/19 20:00 Laboratory Data at Discharge: WBC 16.0 K/uL (4.3-10.9) H D 11/15/19 05:07 Hgb 9.6 g/dL (12.0-15.0) L 11/15/19 05:07 Hct 28.5 % (36.0-45.0) L D 11/15/19 05:07 Plt Count 358 K/uL (152-406) 11/15/19 05:07 PT 12.5 SECONDS (9.5-12.5) 11/14/19 02:05 INR 1.06 11/14/19 02:05 APTT 255.6 SECONDS (24.3-36.9) H* 11/15/19 19:31 Sodium 140 mmol/L (136-145) 11/15/19 05:07 Potassium 3.7 mmol/L (3.5-5.1) 11/15/19 05:07 BUN 23 mg/dL (7-18) H 11/15/19 05:07 Creatinine 5.40 mg/dL (0.55-1.3) H* D 11/15/19 05:07 Glucose 112 mg/dL (74-106) H 11/15/19 05:07 Magnesium 2.0 mg/dL (1.8-2.4) 11/14/19 02:05 Total Bilirubin 0.7 mg/dL (0.2-1.0) 11/14/19 02:05 AST 43 U/L (15-37) H 11/14/19 02:05 ALT 53 U/L (12-78) 11/14/19 02:05 Alkaline Phosphatase 146 U/L (45-117) H 11/14/19 02:05 Home Medications: Escitalopram Oxalate [Lexapro] 10 mg PO DAILY 09/03/18 Atorvastatin Calcium [Lipitor] 40 mg PO BEDTIME 10/29/19 Carvedilol [Coreg] 25 mg PO BID 10/29/19 Clopidogrel Bisulfate [Plavix*] 75 mg PO DAILY 10/29/19 Valacyclovir [Valtrex] 500 mg PO DAILY #5 tab 11/06/19 Followup: Chris Espinoza MD [ACTIVE - CAN ADMIT] - 1-2 Weeks () Jak Morales MD [Primary Care Provider] - 1-2 Weeks
== END 2019-11-15 23:40 | disposition short-term general hospital (02) | DRG 699 ==
LOC: ER 00:46 → ERHOLD 07:10 → 2ND 15:12
PROVIDERS: ADMIT Internal Medicine; ATTEND Internal Medicine
PROC: 5A1D70Z Performance of Urinary Filtration, Intermittent, Less than 6 Hours Per Day (ICD-10-PCS; principal; 2019-11-14)
DX: I70.1 Atherosclerosis of renal artery (principal); I12.0 Hypertensive chronic kidney disease with stage 5 chronic kidney disease or end stage renal disease; N18.5 Chronic kidney disease, stage 5; N17.9 Acute kidney failure, unspecified; Z99.2 Dependence on renal dialysis; D72.829 Elevated white blood cell count, unspecified; I25.10 Atherosclerotic heart disease of native coronary artery without angina pectoris; Z95.5 Presence of coronary angioplasty implant and graft; F17.210 Nicotine dependence, cigarettes, uncomplicated
CPT/HCPCS: 36415; 71045; 71250; 74177; 80048; 80076; 82805; 83605; 83735; 83880; 84145; 84484; 85025; 85379; 85610; 85730; 87040; 87070; 90935; 93005; 93970; 96374; 99285; J1644; J7030; Q9967

== ENCOUNTER 2020-06-15 16:24 | Emergency (ER) | payer OTHER ==
--- OUTSIDE RECORDS SUMMARY | 2020-06-15 16:26 | XMS REPORT | Clinical Summary ---
:1980 Author Organization [facility] Address [address] [place] [id number] Care Team Providers Name Role Phone Asked, No Pcp Primary Care Provider Unavailable Allergies No Known Allergies Medications No known medications Active Problems No known active problems Encounters Date Type Specialty Care Team Description 01/20/2020 [facility] Natalia ([facility] (Primary Dx) 01/20/2020 Travel 11/15/2019 Intake Access after 06/15/2019 Social History Tobacco Use Types Packs/Day Years Used Date Never Smoker Smokeless Tobacco: Never Used Sex Assigned at Date Recorded Not on file Job Start Date Occupation Industry Not on file Not on file Not on file Travel History Travel Start Travel End No recent travel history available. Last Filed Vital Signs Vital Sign Reading Time Taken Comments Blood Pressure 135/81 01/20/2020 11:33 AM CDT Pulse 90 01/20/2020 11:33 AM CDT Temperature - - Respiratory Rate - - Oxygen Saturation - - Inhaled Oxygen Concentration - - Weight 95.3 kg (210 lb) 01/20/2020 11:33 AM CDT Height 160 cm (5' 3") 01/20/2020 11:33 AM CDT Body Mass Index 37.2 01/20/2020 11:33 AM CDT Plan of Treatment Health Maintenance Due Date Last Done Comments CERVICAL CANCER SCREENING 02/27/2001 INFLUENZA VACCINE 06/28/2020 Results Not on fileafter 06/15/2019 Advance Directives For more information, please contact: [phone] Type Date Recorded 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
--- OUTSIDE RECORDS SUMMARY | 2020-06-15 16:26 | XMS REPORT | Continuity of Care Document ---
:1980 Author Organization [facility] t Address [address] [place] [address] Care Team Providers Name Role Phone Asked, Pcp Primary Care Physician Unavailable Natalia Clay MD Attending Clinician Payers Payer Name Policy Type Policy Number Effective Date Expiration Date S linnea CIGNACIGNA OPEN xxxxxxxxxxx 2018 [place] ACCESS/NETWORKxx 00:00:00 Methodis t xxxxxxxx [id number] Problems Condition Condition Condition Status Onset Resolution Last Treating Co mments Source Name Details Category Date Date Treatment Clinician Date Carpal Carpal Problem Active [facility] tunnel [facility] - syndrome syndrome [facility] a of right of right l wrist wrist Outpati ent Clinics 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 Social History Social Habit Start Date Stop Date Quantity Comments Source Sex Assigned At Edgar Cheney Smoking Status Start Date Stop Date Source Never smoker [place] t Medications Ordered Filled Start Stop Current Ordering Indication Dosage Frequency Signature Comments Components Source Medication Medication Date Date Medication? Clinician (SIG) Name Name Amlodipine Amlodipine Yes Brad not [facility] Besylate Besylate [facility] defined [facility] Carvedilol Carvedilol Yes Brad not [facility] Chow defined [facility] Furosemide Furosemide Yes Brad not [facility] Chow defined [facility] Escitalopra Escitalopra Yes Brad not [facility] m Oxalate m Oxalate Chow defined [facility] Aspirin 81 Aspirin 81 Yes Brad not [facility] Chow defined [facility] Atorvastati Atorvastati Yes Brad not [facility] n Calcium n Calcium Chow defined [facility] Clopidogrel Clopidogrel Yes Brad not [facility] Bisulfate Bisulfate Chow defined [facility] Clonidine Clonidine Yes Brad not [facility] HCl HCl Chow defined [facility] Vital Signs Vital Name Observation Time Observation Value Comments Source Systolic blood 2020-01-20 11:33:00 135 mm[Hg] [place] pressure Diastolic blood 2020-01-20 11:33:00 81 mm[Hg] [place] [facility] pressure Heart rate 2020-01-20 11:33:00 90 /min [place] [facility] Body height 2020-01-20 11:33:00 160 cm [place] [facility] Body weight 2020-01-20 11:33:00 95.255 kg [place] [facility] BMI 2020-01-20 11:33:00 37.20 kg/m2 [place] [facility] Procedures This patient has no known procedures. Plan of Care Planned Activity Planned Date Details Comments Source Future Scheduled 2020-06-28 INFLUENZA VACCINE [place] [facility] Test 00:00:00 [code = INFLUENZA VACCINE] Future Scheduled 2001-02-27 Screening for [facility] Test 00:00:00 malignant neoplasm of cervix (procedure) [code = 988865863] Encounters Start End Encounter Admission Attending Care Care Encounter Source Date/Time Date/Time Type Type Clinicians Facility Department ID 2019-11-16 Inpatient U [facility] [id number] [facility] H 00:46:00 2020-01-20 2020-01-20 Outpatient MELANIE [facility] [id number] [place] 00:00:00 00:00:00 [place] [address] 2019-06-16 2019-06-16 Outpatient Meliton Ramos [id number] [facility] [address] 15:00:00 15:00:[facility] Clinics 2019-06-01 2019-06-01 Outpatient Meliton Ramos [id number] 10:30:00 10:30:00 [facility] 2019-03-09 2019-03-09 Outpatient Meliton Ramos [id number] [address] 16:44:00 16:44:00 [facility] 2019-03-09 2019-03-09 Outpatient Meliton Ramos [id number] [facility] 09:00:00 09:00:00 [facility] Results This patient has no known results.
--- NOTE | 2020-06-15 18:14 | ER ---
Nurse's Notes [facility] Name: Boone Sommer Age: 40 yrs Sex: Female : 1980 Arrival Date: 06/15/2020 Time: 16:26 Bed 16 Private MD: Diagnosis: Hypertensive heart disease;Chronic Renal failure Presentation: 06/15 16:32 Chief complaint: Patient states: Saw her kidney doctor for routine checkup. BP was ll1 140's/120's in the office. They gave her clonidine, and sent her here for eval. + BRUCE. Coronavirus screen: Client denies travel out of the [place] in the last 14 days. At this time, the client does not indicate any symptoms associated with coronavirus-19. Ebola Screen: Patient denies travel to an Ebola-affected area in the 21 days before illness onset. Initial Sepsis Screen: Does the patient meet any 2 criteria? No. Patient's initial sepsis screen is negative. Initial Sepsis Screen: Does the patient meet any 2 criteria? No. Patient's initial sepsis screen is negative. Risk Assessment: Do you want to hurt yourself or someone else? Patient reports no desire to harm self or others. Onset of symptoms was June 15, 2020. 16:32 Method Of Arrival: Ambulatory ll1 16:32 Acuity: [place] 3 ll1 Historical: - Allergies: 16:35 No Known Allergies; ll1 - PMHx: 16:35 Depression; Kidney disease stage 2; Anxiety; CAD; "small right kidney"; High ll1 Cholesterol; Hypertension; - PSHx: 16:35 Cholecystectomy; Hysterectomy; ll1 - Immunization history:: Flu vaccine is not up to date. - Social history:: Smoking status: Patient reports the use of cigarette tobacco products, smokes one-half pack cigarettes per day, Patient/guardian denies using alcohol, street drugs. Screenin:30 Abuse screen: Denies threats or abuse. Denies injuries from another. Nutritional jr10 screening: No deficits noted. Tuberculosis screening: No symptoms or risk factors identified. Fall Risk None identified. Assessment: 17:30 General: Appears in no apparent distress. Behavior is calm, cooperative, appropriate jr10 for age. Pain: Denies pain. Neuro: No deficits noted. 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 They gave her clonidine and told her to come to the ED. Upon arrival pt BP WNL, denies any blurry vision, double vision, n/v, cp, sob. Mild BRUCE reported from neck strain. Appears in NAD. . Cardiovascular: No deficits noted. Respiratory: No deficits noted. GI: No deficits noted. No signs and/or symptoms were reported involving the gastrointestinal system. : No deficits noted. No signs and/or symptoms were reported regarding the genitourinary system. EENT: No deficits noted. No signs and/or symptoms were reported regarding the EENT system. Derm: No deficits noted. No signs and/or symptoms reported regarding the dermatologic system. Musculoskeletal: No deficits noted. No signs and/or symptoms reported regarding the musculoskeletal system. Vital Signs: 16:32 BP 151 / 104; Pulse 89; Resp 18; Temp 97.0; Pulse Ox 98% ; Weight 99.79 kg; Height 5 ll1 ft. 3 in. (160.02 cm); Pain 6/10; 18:19 BP 154 / 97; Pulse 77; Resp 18; Pulse Ox 97% on R/A; Pain 0/10; jr10 16:32 Body Mass Index 38.97 (99.79 kg, 160.02 cm) ll1 ED Course: 16:26 Patient arrived in ED. ds1 16:34 Triage completed. ll1 16:35 Darien Mera MD is Attending Physician. kdr 16:35 Arm band placed on. ll1 17:30 Germaine Tovar, JU is Primary Nurse. jr10 17:30 Patient has correct armband on for positive identification. Bed in low position. Call jr10 light in reach. Side rails up X 1. Pulse ox on. NIBP on. 18:15 No provider procedures requiring assistance completed. jr10 18:20 Patient did not have IV access during this emergency room visit. jr10 Administered Medications: No medications were administered Outcome: 18:13 Discharge ordered by . kdr 18:20 Discharged to home ambulatory. jr10 18:20 Condition: good 18:20 Discharge instructions given to patient, Instructed on discharge instructions, follow up and referral plans. Demonstrated understanding of instructions, follow-up care. 18:20 Patient left the ED. jr10 Signatures: Darien Mera MD MD [facility] Negra Quijano ds1 Mini Dugan, RN RN ll1 Germaine Tovar, RN RN jr10
--- NOTE | 2020-06-15 18:14 | EDPHYS ---
Physician Documentation [facility] Name: Boone Sommer Age: 40 yrs Sex: Female : 1980 Arrival Date: 06/15/2020 Time: 16:26 Bed 16 Private MD: ED Physician Darien Mera HPI: 06/16 14:18 This 40 yrs old Female presents to ER via Ambulatory with complaints of High kdr Blood Pressure. 14:18 The patient has elevated blood pressure and discovered this at a physician's office, [facility] and sent to the emergency department for evaluation. Onset: The symptoms/episode began/occurred Long standing. Modifying factors: The symptoms are aggravated by Nothing, The symptoms are alleviated by Nothing. Associated signs and symptoms: The patient has no apparent associated signs or symptoms. Severity of symptoms: At its worst the blood pressure was mild, in the emergency department the blood pressure is unchanged. The patient has experienced similar episodes in the past, chronically. The patient has been recently seen by a physician:. The patient was not concerned by the nursing BP monitored in the nursing notes. She was not have any s/s suggesting end organ dysfunction. At the time I interviewed the patient , she was not in any distress other than for being sent to the ED for no apparent reason.. Historical: - Allergies: 06/15 16:35 No Known Allergies; ll1 - PMHx: 16:35 Depression; Kidney disease stage 2; Anxiety; CAD; "small right kidney"; High ll1 Cholesterol; Hypertension; - PSHx: 16:35 Cholecystectomy; Hysterectomy; ll1 - Immunization history:: Flu vaccine is not up to date. - Social history:: Smoking status: Patient reports the use of cigarette tobacco products, smokes one-half pack cigarettes per day, Patient/guardian denies using alcohol, street drugs. ROS: 06/16 14:18 Constitutional: Negative for fever, chills, and weight loss, Eyes: Negative for injury, kdr pain, redness, and discharge, ENT: Negative for injury, pain, and discharge, Neck: Negative for injury, pain, and swelling, Cardiovascular: Negative for chest pain, palpitations, and edema, Respiratory: Negative for shortness of breath, cough, wheezing, and pleuritic chest pain, Abdomen/GI: Negative for abdominal pain, nausea, vomiting, diarrhea, and constipation, Back: Negative for injury and pain, : Negative for injury, bleeding, discharge, and swelling, MS/Extremity: Negative for injury and deformity, Skin: Negative for injury, rash, and discoloration, Neuro: Negative for headache, weakness, numbness, tingling, and seizure activity. Psych: Negative for depression, anxiety, suicide ideation, homicidal ideation, and hallucinations, Allergy/Immunology: Negative for hives, rash, and allergies, Endocrine: Negative for neck swelling, polydipsia, polyuria, polyphagia, and marked weight changes, Hematologic/Lymphatic: Negative for swollen nodes, abnormal bleeding, and unusual bruising. Exam: 14:18 Constitutional: This is a well developed, well nourished patient who is awake, alert, kdr and in no acute distress. Head/Face: Normocephalic, atraumatic. Eyes: Pupils equal round and reactive to light, extra-ocular motions intact. Lids and lashes normal. Conjunctiva and sclera are non-icteric and not injected. Cornea within normal limits. Periorbital areas with no swelling, redness, or edema. Neck: Trachea midline, no thyromegaly or masses palpated, and no cervical lymphadenopathy. Supple, full range of motion without nuchal rigidity, or vertebral point tenderness. No Meningismus. Chest/axilla: Normal chest wall appearance and motion. Nontender with no deformity. No lesions are appreciated. Cardiovascular: Regular rate and rhythm with a normal S1 and S2. No gallops, murmurs, or rubs. Normal PMI, no JVD. No pulse deficits. Respiratory: Lungs have equal breath sounds bilaterally, clear to auscultation and percussion. No rales, rhonchi or wheezes noted. No increased work of breathing, no retractions or nasal flaring. Abdomen/GI: Soft, non-tender, with normal bowel sounds. No distension or tympany. No guarding or rebound. No evidence of tenderness throughout. Back: No spinal tenderness. No costovertebral tenderness. Full range of motion. Skin: Warm, dry with normal turgor. Normal color with no rashes, no lesions, and no evidence of cellulitis. MS/ Extremity: Pulses equal, no cyanosis. Neurovascular intact. Full, normal range of motion. Neuro: Awake and alert, GCS 15, oriented to person, place, time, and situation. Cranial nerves II-XII grossly intact. Motor strength 5/5 in all extremities. Sensory grossly intact. Cerebellar exam normal. Normal gait. Psych: Awake, alert, with orientation to person, place and time. Behavior, mood, and affect are within normal limits. Vital Signs: 06/15 16:32 BP 151 / 104; Pulse 89; Resp 18; Temp 97.0; Pulse Ox 98% ; Weight 99.79 kg; Height 5 ll1 ft. 3 in. (160.02 cm); Pain 6/10; 18:19 BP 154 / 97; Pulse 77; Resp 18; Pulse Ox 97% on R/A; Pain 0/10; jr10 16:32 Body Mass Index 38.97 (99.79 kg, 160.02 cm) ll1 MDM: 18:13 Patient medically screened. kdr 06/16 14:18 Data reviewed: vital signs, nurses notes, lab test result(s), radiologic studies. kdr Counseling: I had a detailed discussion with the patient and/or guardian regarding: the historical points, exam findings, and any diagnostic results supporting the discharge/admit diagnosis, the need for outpatient follow up. Special discussion: I discussed with the patient/guardian in detail that at this point there is no indication for admission to the hospital. It is understood, however, that if the symptoms persist or worsen the patient needs to return immediately for re-evaluation. ED course: The patient felt silly for being in the ED when her BP was not unusually high nor high for her at all. She indicated that she was totally satisfied with immediate discharge and no additional evaluation or treatment. Administered Medications: No medications were administered Disposition: 06/15/20 18:13 Discharged to Home. Impression: Hypertensive heart disease, Chronic Renal failure. - Condition is Stable. - Discharge Instructions: Hypertension, [id number]. - Medication Reconciliation Form, Thank You Letter form. - Follow up: Private Physician; When: 2 - 3 days; Reason: If symptoms return, Further diagnostic work-up, Recheck today's complaints, Continuance of care, Re-evaluation by your physician. - Problem is an ongoing problem. - Symptoms have improved. Signatures: Darien Mera MD MD kdr Mini Dugan RN RN ll1 Germaine Tovar RN RN jr10 Corrections: (The following items were deleted from the chart) 06/15 18:20 18:13 06/15/2020 18:13 Discharged to Home. Impression: Hypertensive heart disease; jr10 Chronic Renal failure. Condition is Stable. Forms are Medication Reconciliation Form, Thank You Letter, Antibiotic Education, Prescription Opioid Use. Follow up: Private Physician; When: 2 - 3 days; Reason: If symptoms return, Further diagnostic work-up, Recheck today's complaints, Continuance of care, Re-evaluation by your physician. Problem is an ongoing problem. Symptoms have improved. kdr
[2020-06-15 18:59] VITALS: TEMP 97
[2020-06-15 19:00] VITALS: BP 154/97; O2SAT 97
== END 2020-06-15 18:20 | disposition home or self-care (01) ==
LOC: ER 16:24
DX: I13.10 Hypertensive heart and chronic kidney disease without heart failure, with stage 1 through stage 4 chronic kidney disease, or unspecified chronic kidney disease (principal); N18.2 Chronic kidney disease, stage 2 (mild); F17.210 Nicotine dependence, cigarettes, uncomplicated
CPT/HCPCS: 99283